=== PATIENT | female | born 1960 | race Caucasian/White ===

== ENCOUNTER → 2017-11-16 10:49 | Outpatient (CLI) | payer BC, SELFPAY ==
--- NOTE | 2017-11-16 11:02 | RAD_ITS ---
STUDY: X-RAY - ABDOMEN/PELVIS REASON FOR EXAM: Female, 57 years old. 2 day history of diarrhea and nausea. TECHNIQUE: AP supine and upright views of the abdomen and pelvis. COMPARISON: Comparison is made with prior study dated July 23, 2013. FINDINGS: Normal visualized lung bases. There is a moderate amount of colonic fecal material. There is no demonstrated free abdominal air. The visualized liver, spleen and kidneys are grossly normal in size and morphology. There are calcified phleboliths in the pelvis. Mild dextroscoliosis. RAD/Abd Inc Decub and/or Erect IMPRESSION: Moderate degree of fecal material seen in the colon. Electronically Signed: Rome Lim MD at 15:13 EST Tel [phone], Service support ,
== END ==
PROVIDERS: Family Provider Family Medicine Geriatric Medicine; PCP Family Medicine Geriatric Medicine; Visit Provider Family Medicine Geriatric Medicine
DX: R50.9 Fever, unspecified (principal); R19.7 Diarrhea, unspecified
CPT/HCPCS: 74019; 87633

== ENCOUNTER → 2017-12-14 07:24 | Outpatient (CLI) | payer BC, SELFPAY ==
[2017-12-20 11:52] LABS: HPV Reflexed? NOT INDICATED
== END ==
PROVIDERS: Family Provider Family Medicine Geriatric Medicine; PCP Family Medicine Geriatric Medicine; Visit Provider Obstetrics & Gynecology
DX: Z12.4 Encounter for screening for malignant neoplasm of cervix (principal)
CPT/HCPCS: 88175; G0145

== ENCOUNTER → 2023-11-30 | Outpatient (CLI) | payer BC, SELFPAY ==
--- NOTE | 2023-11-30 09:54 | VDLE_ITS ---
Reason For Study: Right leg pain RIGHT LEFT GSV is normal. CFV is compressible, spontaneous, phasic, CFV is compressible, spontaneous, phasic, competent, and demonstrates normal competent and demonstrates normal augmentation. augmentation. FV is compressible, spontaneous, phasic, competent and demonstrates normal augmentation. POP V is compressible, spontaneous, phasic, competent and demonstrates normal augmentation. T/P Trunk is compressible. PTV is compressible. RT PerV is compressible. Procedure This is a venous duplex using B-mode, color flow and spectral Doppler. Exam performed in department. A preliminary report was called and/or faxed to Jamel ACOSTA. VL/Venous Duplex US, Unilateral Interpretation Summary Deep veins of the right lower extremity are patent and compressible segmentally . There is no evidence of right lower extremity deep vein thrombosis. The right great sapheno us vein appears patent and compressible segmentally. Ordering Physician: Jamel Ward Referring Physician: Kelechi Beasley M.D. Performed By: Eve Man RVT
--- OUTSIDE RECORDS SUMMARY | 2023-11-30 10:11 | XMS RPT_ITS | CCD ---
Author Name Unknown Address [address] [place] [address] Organization [facility] Care Team Providers Care Contact Worker Name Role Phone Phylicia CRAMER, Emigdio Goetz Primary Care Provider Medications Completed/Discontinued Medications Medication Drug Class(es) Dates Sig (Normalized) Sig (Original) preservative-free timolol 2.5 mg/ml ophthalmic solution (3 sources) beta-Adrenergic Tamera Start: 01-24-2021 take 1 drop(s) into the eye(s) once daily Timolol Maleate 0.25 % dpet Use 1 Drop in both eyes once daily. 0 01/24/2021 Active Problems Active Problems Problem Classification Problem Date Documented Da te Episodic/Chronic Gastroduodenal ulcer (except hemorrhage) (3 sources) Ulcer of duodenum; Translations: [Duodenal ulcer, unspecified as acute or chronic, without hemorrhage or perforation] Onset: 08-28-2013 08-28-2013 Chronic Other screening for suspected conditions (not mental disorders or infectious disease) (2 sources) Patient encounter status; Translations: [Encounter for screening mammogram for malignant neoplasm of breast] Episodic Other upper respiratory infections (1 source) Sore throat symptom; Translations: [Acute pharyngitis, unspecified] 08-08-2023 Episodic Substance-related disorders (3 sources) Tobacco user; Translations: [Nicotine dependence, unspecified, uncomplicated] 01-24-2021 Chronic Past or Other Problems Problem Classification Problem Date Documented Da te Episodic/Chronic Abdominal pain (3 sources) Abdominal pain; Translations: [Unspecified abdominal pain] Onset: 07-30-2013 07-30-2013 Episodic Biliary tract disease (3 sources) Polyp of gallbladder; Translations: [Cholesterolosis of gallbladder] Onset: 08-28-2013 08-28-2013 Episodic Gastritis and duodenitis (3 sources) Duodenitis; Translations: [Duodenitis without bleeding] Onset: 07-30-2013 07-30-2013 Episodic Other connective tissue disease (3 sources) Swelling of hand; Translations: [Other specified soft tissue disorders] Onset: 08-18-2012 08-18-2012 Episodic Other gastrointestinal disorders (3 sources) Constipation; Translations: [Constipation, unspecified] Onset: 07-30-2013 07-30-2013 Episodic Results Test Name Value Interpretation Reference Range Facil ity Vital Signs Date Time Vital Sign Value Performing Clinician Faci lity 08-08-2023 10:39-0400 Body temperature 98.6 [degF] Johanna Foster APRN.[employer] Work Phone: [facility] 08-08-2023 10:39-0400 Body weight 56.7 kg Johanna Foster APRN.[employer] Work Phone: [facility] 08-08-2023 10:39-0400 Diastolic blood pressure 90 mm[Hg] Johanna Foster APRN.[employer] Work Phone: [facility] 08-08-2023 10:39-0400 Heart rate 102 /min Johanna Foster APRN.[employer] Work Phone: [facility] 08-08-2023 10:39-0400 Respiratory rate 21 /min Johanna Foster APRN.[employer] Work Phone: [facility] 08-08-2023 10:39-0400 SaO2% (BldA) [Mass fraction] 98 % Johanna Foster APRN.[employer] Work Phone: [facility] 08-08-2023 10:39-0400 Systolic blood pressure 128 mm[Hg] Johanna Foster APRN.[employer] Work Phone: [facility] Encounters Encounter Date Encounter Type Care Provider Facility Start: 08-08-2023 End: 08-08-2023 ambulatory EMIGDIO BUCK Facility:[facility] Start: 08-08-2023 End: 08-08-2023 Patient encounter procedure Johanna Foster APRN.[employer]URSE [employer] Work Phone: [facility] Procedures Date Procedure Procedure Detail Performing Clinician Start: 08-08-2023 STREP A MOLECULAR (POC) Johanna Foster APRN.[employer] Work Phone: Start: 02-17-2021 Mammography Jonel Buck MD Work Phone: Start: 01-24-2021 Adult depression screening assessment Emigdio Buck MD Work Phone: Start: 01-24-2021 Lipid 1996 panel - S afsaneh or Plasma Johanna Foster APRN.[employer] Work Phone: Start: 08-07-2013 Colonoscopy Jonel Buck MD Work Phone: Plan of Treatment Date Care Activity Detail Author Start: 01-24-2026 Lipid 1996 panel - Serum or Plasma Lipid Screening [facility] Start: 01-24-2026 LIPID SCREEN LIPID SCREEN [facility] Start: 01-25-2024 DIABETES SCREEN DIABETES SCREEN [facility] Start: 01-25-2024 Diabetes Screening Diabetes Screening [facility] Start: 08-07-2023 Colonoscopy COLONOSCOPY [facility] Start: 08-07-2023 COLORECTAL CANCER SCREENING COLORECTAL CANCER SCREENING [facility] Start: 06-17-2023 Influenza vaccination [facility] Start: 10-17-2022 DEPRESSION ASSESSMENT DEPRESSION ASSESSMENT [facility] Start: 06-17-2022 Influenza vaccination INFLUENZA (Season Ended) [facility] Start: 02-17-2022 Mammography [facility] Start: 01-24-2022 Adult depression screening assessment DEPRESSION SCREENING [facility] Start: 2021 RSV Vaccine (1 - 1-dose 60+ series) RSV Vaccine (1 - 1-dose 60+ series) [facility] Start: 2011 Influenza vaccination Lung Cancer Screening [facility] Start: 2011 SHINGRIX VACCINE (1 of 2) SHINGRIX VACCINE (1 of 2) [facility] Start: 2006 COLOGUARD (FIT-DNA) COLOGUARD (FIT-DNA) [facility] Start: [address] COLONOGRAPHY [facility] Start: 2006 FECAL OCCULT BLOOD FECAL OCCULT BLOOD [facility] Start: 2006 SIGMOIDOSCOPY SIGMOIDOSCOPY [facility] Start: 1991 HPV TESTING HPV TESTING [facility] Start: 1982 PAP TESTING PAP TESTING [facility] Start: 1980 Urine microalbumin profile [facility] Start: 1967 PNEUMOCOCCAL (1 - PCV) PNEUMOCOCCAL (1 - PCV) [facility] Start: 1967 Pneumococcal vaccination Pneumococcal Vaccine (1 - PCV) [facility] Start: 1966 COVID-19 VACCINE (#1) COVID-19 VACCINE (#1) [facility] Start: 04-28-1962 COVID-19 VACCINE (#1) COVID-19 VACCINE (#1) [facility] End: 04-23-2023 ARLETH SCREENING W LUZ ARLETH SCREENING W LUZ Radiology Routine Encounter for screening mammogram for breast cancer 1 Occurrences starting 03/24/2022 until 04/23/2023 [facility] Work Phone: Immunizations Immunization Date Immunization Notes Care Provider Maximiliano ny 08-02-2017 influenza virus vacc ine, unspecified formulation Johanna Foster APRN.[facility] Work Phone: [facility] Payers Date Payer Category Payer Unknown [employer] PPO OOS [id number] 2013-Present [phone] [address] [place] [address] PPO [id number] 2013 Unknown [employer] PPO OOS [id number] 2013-Present [phone] [address] [place] [address] PPO [id number] 2013 Unknown [id number] Social History Date Type Detail Facility Start: 08-17-2012 End: 08-08-2023 Tobacco smoking status NHIS Smokes tobacco daily [facility] History of tobacco use Cigarette Smoker [facility] Start: 08-17-2012 End: 09-21-2020 Cigarettes smoked current (pack per day) - Reported 0.5 [facility] Start: 08-17-2012 End: 08-08-2023 Tobacco use and exposure Smokeless tobacco non-user [facility] Start: 02-25-2021 End: 08-08-2023 Alcohol intake Current drinker of alcohol (finding) [facility] Start: 01-24-2021 History SDOH Alcohol Comment 5-6 beers on Tuesday [facility] Start: 09-20-2013 End: 08-08-2023 Tobacco Comment quit for 2 months (april and May) resumed and currently smoking 8-10 cigarrettes a day [facility] Start: 1960 Sex Assigned At Not on file [facility] Start: 09-21-2020 End: 08-08-2023 Tobacco use panel [facility] Adult Depression Screening Assessment 0 [facility] Progress note 08-08-2023 Note Date & Type Note Facility 08-08-2023 Note HNO ID: [id number] Author: Johanna Foster APRN.[employer] Service: ? Author Type: Nurse Practitioner Type: Progress Notes Filed: 08/08/2023 11:10 AM Note Text: CC: Patient presents with: Cough: Coughing up mucus, sore throat, fatigue, chills x 1 day HPI: Brianna Victoria is a 62 year old female who presents to the office with complaint of head congestion, cough, nonproductive, sore throat, and sinus symptoms for the past day. Symptoms are staying the same. Associated symptoms includes fatigue and chills. Denies nausea, vomiting , and diarrhea. Treatments tried include nothing so far. with no relief of symptoms. Sick contacts: unknown. History of asthma, frequent episodes of bronchitis, chronic bronchitis, bronchiectasis or COPD: No Smoker: No Seasonal/environmental allergies: No The ROS is otherwise negative. The patient's pmh, medications, allergies, and past visits are reviewed. PHYSICAL EXAM: BP 128/90 Pulse 102 Temp 37 ?C (98.6 ?F) Resp 21 Wt 56.7 kg (125 lb) SpO2 98% BMI 21.34 kg/m? General appearance: alert, cooperative, pleasant, in no acute distress Head: Normocephalic Eyes: EOM's intact, conjunctiva pink and moist, no icterus, sclera white, non-injected Ears: Right ear: External ear/canal- Normal, TM - clear with good landmarks. Left ear: External ear/canal- Normal, TM - clear with good landmarks Oropharynx:moderate erythema, without exudates present Heart: Negative. RRR without obvious murmur, gallop, or rubs. No ectopy. Lungs: clear to auscultation, without rales or wheeze, good air exchange PAST MEDICAL HISTORY Diagnosis Date Alcohol consumption binge drinking Benign esophageal stricture History of cocaine abuse (HCC) crack. Last use was 2008 History of marijuana use last use 2008 Other specified glaucoma Eleni Kurtz-[place] Tobacco use disorder PAST SURGICAL HISTORY Procedure Laterality Date DELIVERY ONLY 10/17/1988 , low transverse COLONOSCOPY FLX DX W/COLLJ SPEC WHEN PFRMD 08/07/2013 with EGD EGD 09/2013 LAPS SURG CHOLECYSTECTOMY W/CHOLANGIOGRAPHY 09/25/2013 PAST SURGICAL HISTORY OF 10/17/2003 tendon and laceration repair of right hand ALLERGIES Patient has no known allergies. MEDICATIONS Timolol Maleate 0.25 % dpet Use 1 Drop in both eyes once daily. FAMILY HISTORY Problem Relation Age of Onset Cancer Mother stomach Hypertension Mother Cancer Father stomach Heart Father 60 Alcohol abuse Father Hypertension Sister Cancer Brother stomach No Known Problems Son Social History Tobacco Use Smoking status: Every Day Packs/day: 0.50 Years: 42.00 Additional pack years: 0.00 Total pack years: 21.00 Types: Cigarettes Smokeless tobacco: Never Tobacco comments: quit for 2 months (april and May) resumed and currently smoking 8-10 cigarrettes a day Substance Use Topics Alcohol use: Yes Alcohol/week: 20.0 standard drinks of alcohol Types: 20 Cans of Beer (12oz) per week Comment: 5-6 beers on Tuesday Drug use: No Comment: perviously used Cocaine for 3 years, quit 2005 ASSESSMENT/PLAN: 1. Sore throat - ICD9: 462, ICD10: J02.9 - STREP A MOLECULAR (POC) - neg Does not want viral testing at this time. Did tell patient to do [id number] medication for symptom management Potential red flag symptoms discussed with the patient. Reviewed appropriate action plan to take if red flag symptoms occur. Patient agreeable to treatment plan. Johanna Foster APRN.[facility] History of Present illness Narrative 08-08-2023 Johanna Foster APRN.[employer]URSE [employer] - 08/08/2023 10:47 AM EDT Note Date & Type Note Facility 08-08-2023 History of Presen t illness Narrative CC: Patient presents with: Cough: Coughing up mucus, sore throat, fatigue, chills x 1 day HPI: Brianna Victoria is a 62 year old female who presents to the office with complaint of head congestion, cough, nonproductive, sore throat, and sinus symptoms for the past day. Symptoms are staying the same. Associated symptoms includes fatigue and chills. Denies nausea, vomiting , and diarrhea. Treatments tried include nothing so far. with no relief of symptoms. Sick contacts: unknown. History of asthma, frequent episodes of bronchitis, chronic bronchitis, bronchiectasis or COPD: No Smoker: No Seasonal/environmental allergies: No The ROS is otherwise negative. The patient's pmh, medications, allergies, and past visits are reviewed. PHYSICAL EXAM: BP 128/90 Pulse 102 Temp 37 C (98.6 F) Resp 21 Wt 56.7 kg (125 lb) SpO2 98% BMI 21.34 kg/m General appearance: alert, cooperative, pleasant, in no acute distress Head: Normocephalic Eyes: EOM's intact, conjunctiva pink and moist, no icterus, sclera white, non-injected Ears: Right ear: External ear/canal- Normal, TM - clear with good landmarks. Left ear: External ear/canal- Normal, TM - clear with good landmarks Oropharynx:moderate erythema, without exudates present Heart: Negative. RRR without obvious murmur, gallop, or rubs. No ectopy. Lungs: clear to auscultation, without rales or wheeze, good air exchange PAST MEDICAL HISTORY Diagnosis Date Alcohol consumption binge drinking Benign esophageal stricture History of cocaine abuse (HCC) crack. Last use was 2008 History of marijuana use last use 2008 Other specified glaucoma Eleni Kurtz-[place] Tobacco use disorder PAST SURGICAL HISTORY Procedure Laterality Date DELIVERY ONLY 10/17/1988 , low transverse COLONOSCOPY FLX DX W/COLLJ SPEC WHEN PFRMD 08/07/2013 with EGD EGD 09/2013 LAPS SURG CHOLECYSTECTOMY W/CHOLANGIOGRAPHY 09/25/2013 PAST SURGICAL HISTORY OF 10/17/2003 tendon and laceration repair of right hand ALLERGIES Patient has no known allergies. MEDICATIONS Timolol Maleate 0.25 % dpet Use 1 Drop in both eyes once daily. FAMILY HISTORY Problem Relation Age of Onset Cancer Mother stomach Hypertension Mother Cancer Father stomach Heart Father 60 Alcohol abuse Father Hypertension Sister Cancer Brother stomach No Known Problems Son Social History Tobacco Use Smoking status: Every Day Packs/day: 0.50 Years: 42.00 Additional pack years: 0.00 Total pack years: 21.00 Types: Cigarettes Smokeless tobacco: Never Tobacco comments: quit for 2 months (april and May) resumed and currently smoking 8-10 cigarrettes a day Substance Use Topics Alcohol use: Yes Alcohol/week: 20.0 standard drinks of alcohol Types: 20 Cans of Beer (12oz) per week Comment: 5-6 beers on Tuesday Drug use: No Comment: perviously used Cocaine for 3 years, quit 2005 ASSESSMENT/PLAN: 1. Sore throat - ICD9: 462, ICD10: J02.9 - STREP A MOLECULAR (POC) - neg Does not want viral testing at this time. Did tell patient to do [id number] medication for symptom management Potential red flag symptoms discussed with the patient. Reviewed appropriate action plan to take if red flag symptoms occur. Patient agreeable to treatment plan. Johanna Foster APRN.[facility]INA documented in this encounter [facility] Clinical Note 03-16-2023 Note Date & Type Note Facility 03-16-2023 Note Patient Outreach (IN [facility]) BRIANNA VICTORIA ([id number]) 1960 F NFR Date Time Provider Department 03/16/23 EMIGDIO BUCK During your visit today, we recorded the following information about you: Allergies As of Date: 03/16/2023 (No Known Allergies) Date Reviewed: 02/25/2021 Reviewed by: Alisson Villegas LPN - Fully Assessed Visit Diagnosis:Encounter for screening mammogram for breast cancer [Z12.31] Order(s):ARLETH SCREENING W LUZ [[id number]] Order #: [id number] FUTURE Prescriptions as of 03/21/2023 - Timolol Maleate 0.25 % dpet Use 1 Drop in both eyes once daily. Problem List As Of Date 03/16/2023 Noted Resolved Swelling of hand [M79.89] 08/18/2012 Abdominal pain, unspecified site [R10.9] 07/30/2013 Duodenitis [K29.80] 07/30/2013 Constipation [K59.00] 07/30/2013 Gallbladder polyp [K82.4] 08/28/2013 Duodenal ulcer [K26.9] 08/28/2013 Tobacco use disorder [F17.200] Encounter Status:Closed by RASHID PENG on 03/21/23 [facility] Evaluation note Note Date & Type Note Facility documented in this encounter [facility] Evaluation note Note Date & Type Note Facility documented in this encounter [facility] Reason for referral (narrative) Diagnostic Procedure Only (Routine) - Pending Review Note Date & Type Note Facility Referral ID Status Reason Start Date Expiration Date Visits Requested Visits Authorized [id number] Pending Review Auto-Generat ed Referral 03/24/2022 04/23/2023 1 1 T [facility] Reason for referral (narrative) Diagnostic Procedure Only (Routine) - Pending Review Note Date & Type Note Facility Referral ID Status Reason Start Date Expiration Date Visits Requested Visits Authorized [id number] Pending Review Auto-Generat ed Referral 03/16/2023 04/14/2024 1 1 T [facility] Summary Purpose Family History No Family History Records Found Advance Directives No Advanced Directives Records Found Additional Source Comments Source Comments (unrecognize d section and content) In the event this informatio n is protected by the Federal Confidentiality of Alcohol and Drug Abuse Patient Records regulations: The Federal rules restrict any use of the information to criminally investigate or prosecute any alcohol or drug abuse patient.[facility] the event this information is protected by the [facility] Confidentiality of Alcohol and Drug Abuse Patient Records regulations: The Federal rules restrict any use of the information to criminally investigate or prosecute any alcohol or drug abuse patient.[facility] the event this information is protected by the Federal Confidentiality of Alcohol and Drug Abuse Patient Records regulations: The Federal rules restrict any use of the information to criminally investigate or prosecute any alcohol or drug abuse patient.[facility] Care Teams (unrecognized sec tion and content) Contact Worker Relationship Specialty Start Date End Date Emigdio Buck MD [address] [place], [place] [id number] PCP - General Family Medicine 01/24/21 Contact Worker Relationship Specialty Start Date End Date Emigdio Buck MD [address] [place], [place] [id number] PCP - General Family Medicine 01/24/21 Reason for Visit (unrecogniz ed section and content) INFORMATION SOURCE (unrecogn ized section and content) FOR RECORDS PERTAINING TO PATIENTS WHO ARE OR HAVE BEEN ENROLLED IN A CHEMICAL DEPENDENCY/SUBSTANCEABUSE PROGRAM, SOME INFORMATION MAY BE OMITTED. This clinical summary was aggregated from multiple sources. Caution should be exercised in using it in the provision of clinical care. This summary normalizes information from multiple sources, and as a consequence, information in this document may materially change the coding, format and clinical context of patient data. In addition, data may be omitted in some cases. CLINICAL DECISIONS SHOULD BE BASED ON THE PRIMARY CLINICAL RECORDS. [email or web address]. provides no warranty or guarantee of the accuracy or completeness of information in this document.
== END | disposition home or self-care (01) ==
PROVIDERS: PCP Family Medicine; Referring Provider Physician Assistant; Visit Provider Physician Assistant
DX: M79.661 Pain in right lower leg (principal)
CPT/HCPCS: 93971

== ENCOUNTER → 2023-12-12 | Outpatient (CLI) | payer BC, SELFPAY ==
[2023-12-12 15:38] LABS: Absolute Lymphocyte Count 1.78 X10^3/uL (0.83-4.51); Basophil# 0.02 X10^3/uL; Basophil% 0.2 % (0-1); Eosinophil# 0.03 X10^3/uL; Eosinophils% 0.3 % (0-5); Hematocrit 41.5 % (37-47); Hemoglobin 13.6 g/dL (12.0-15.0); Lymphocyte # 1.78 X10^3/ul (0.83-4.51); Lymphocyte % 18.9 % (19-41); Mean Corp Hgb Conc 32.8 g/dL (32-36); Mean Corpuscular Hgb 30.9 pg (27.0-32.0); Mean Corpuscular Volume 94.3 fL (81-99); Mean Platelet Vol. 10.9 fl (6.2-12.0); Monocyte# 0.53 X10^3/uL; Monocyte% 5.6 % (0-10); NRBC Flagged by Analyzer 0 % (0-5); Neutrophil # 7.01 X10^3/uL (2.7-7.7); Neutrophil % 74.5 % (47-70); Platelet Count 255 K/mm3 (150-450); RBC Distribution Width CV 12.3 % (11.6-14.6); RBC Distribution Width SD 43.2 fl (35.1-43.9); White Blood Count 9.4 K/mm3 (4.4-11.0)
[2023-12-12 15:50] LABS: ALB/GLOB Ratio 1.3 RATIO (0.9-2.4); AST(SGOT) 10 U/L (15-37); Alanine Aminotransfer ALT/SGPT 28 U/L (13-56); Albumin, Serum 3.9 g/dL (3.2-5.0); Alkaline Phosphatase 106 U/L (45-117); Anion Gap 3 (5-15); BUN 24 mg/dL (7-18); Chloride 109 mmol/L (98-107); Cholesterol 265 mg/dL (200); Creatinine, Serum 0.77 mg/dL (0.55-1.02); EST Glomerular Filtration Rate 80 mL/min (>60); Est Glom Filt Rate - Afr Amer 97 mL/min (>60); Globulin 3.1 g/dL (2.2-4.2); Glucose 100 mg/dL (74-106); High Density Lipoprotein 80 mg/dL; Potassium 4.6 mmol/L (3.5-5.1); Sodium Level 140 mmol/L (136-145); Triglycerides 113 mg/dL; Very Low Density Lipoprotein 23 mg/dL (5-40)
== END | disposition home or self-care (01) ==
LOC: BIMLAB 13:06
PROVIDERS: PCP Family Medicine; Visit Provider Family Medicine
DX: Z02.89 Encounter for other administrative examinations (principal); M70.61 Trochanteric bursitis, right hip
CPT/HCPCS: 36415; 80053; 80061; 85025

== ENCOUNTER → 2023-12-15 | Outpatient (CLI) | payer BC, SELFPAY ==
--- NOTE | 2023-12-15 07:15 | BI_ITS ---
MAMMOGRAPHY - BILATERAL SCREENING REASON FOR EXAM: Female, 63 years old. Routine annual screening examination. PERTINENT HISTORY: Non-contributory. TECHNIQUE: Digital bilateral breast luz (3D mammographic acquisition) in the CC and MLO projections. 2-D mediolateral oblique (MLO) and craniocaudad (CC) views of both breasts were obtained. CAD: Full Field Digital Mammography with Computer Added Detection was performed. COMPARISON: Comparison is made with prior study August 10, 2016 and August 28, 2015. FINDINGS: Breast Composition: The breasts are heterogeneously dense, which may obscure small masses. There are no dominant masses or suspicious calcifications. No other significant abnormalities are identified. There has been no significant change since the prior study. BI/SCRN MAMM (CAD)W/LUZ BILAT IMPRESSION: Stable bilateral screening mammogram. Yearly follow-up mammogram recommended. (A) ASSESSMENT CATEGORY: BIRADS Category 1: Negative. A letter regarding these results will be sent to the patient by the facility within 30 days. Approximately 10% of breast cancers are not detected by mammography. A normal mammogram should not delay biopsy of a clinically suspicious abnormality. [id number] Electronically Signed: Rome Lim MD at 8:44 EST ,
--- OUTSIDE RECORDS SUMMARY | 2023-12-15 07:20 | XMS RPT_ITS | CCD ---
Author Name Unknown Address [address] [place] [address] Organization [facility] Care Team Providers Care Oracle Fusion Middleware Developer Name Role Phone Phylicia CRAMER, Emigdio Goetz [...] 10:39-0400 Body temperature 98.6 [degF] Johanna Foster APRN.DRAG DOWN Work Phone: [facility] 08-08-2023 10:39-0400 Body weight 56.7 kg Johanna Foster APRN.DRAG DOWN Work Phone: [facility] 08-08-2023 10:39-0400 Diastolic blood pressure 90 mm[Hg] Johanna Foster APRN.DRAG DOWN Work Phone: [facility] 08-08-2023 10:39-0400 Heart rate 102 /min Johanna Foster APRN.DRAG DOWN Work Phone: [facility] 08-08-2023 10:39-0400 Respiratory rate 21 /min Johanna Foster APRN.DRAG DOWN Work Phone: [facility] 08-08-2023 10:39-0400 SaO2% (BldA) [Mass fraction] 98 % Johanna Foster APRN.DRAG DOWN Work Phone: [facility] 08-08-2023 10:39-0400 Systolic blood pressure 128 mm[Hg] Johanna Foster APRN.DRAG DOWN Work Phone: [facility] Encounters Encounter Date Encounter Type Care Provider Facility Start: 08-08-2023 End: 08-08-2023 ambulatory EMIGDIO BUCK Facility:[facility] Start: 08-08-2023 End: 08-08-2023 Patient encounter procedure Johanna Foster APRN.DRAG DOWN Work Phone: [facility] Procedures Date Procedure Procedure Detail Performing Clinician Start: 08-08-2023 STREP A MOLECULAR (POC) Johanna Foster APRN.DRAG DOWN Work Phone: Start: 02-17-2021 Mammography Jonel Buck MD Work Phone: Start: 01-24-2021 Adult depression screening assessment Emigdio Buck MD Work Phone: Start: 01-24-2021 Lipid 1996 panel - S afsaneh or Plasma Johanna Foster APRN.DRAG DOWN Work Phone: Start: 08-07-2013 Colonoscopy Jonel Buck MD Work Phone: Plan of Treatment Date Care Activity Detail Author Start: 01-24-2026 Lipid 1996 panel - Serum or Plasma Lipid Screening [facility] Start: 01-24-2026 LIPID SCREEN LIPID SCREEN [facility] Start: 01-25-2024 DIABETES SCREEN DIABETES SCREEN [facility] Start: 01-25-2024 Diabetes Screening Diabetes Screening [facility] Start: 08-07-2023 Colonoscopy COLONOSCOPY [facility] Start: 08-07-2023 COLORECTAL CANCER SCREENING COLORECTAL CANCER SCREENING [facility] Start: 06-17-2023 Influenza vaccination [facility] Start: 10-17-2022 DEPRESSION ASSESSMENT DEPRESSION ASSESSMENT [facility] Start: 06-17-2022 Influenza vaccination INFLUENZA (Season Ended) [facility] Start: 02-17-2022 Mammography [facility] Start: 01-24-2022 Adult depression screening assessment DEPRESSION SCREENING [facility] Start: 2021 RSV Vaccine (1 - 1-dose 60+ series) RSV Vaccine (1 - 1-dose 60+ series) [facility] Start: 2011 Influenza vaccination Lung Cancer Screening [facility] Start: 2011 SHINGRIX VACCINE (1 of 2) SHINGRIX VACCINE (1 of 2) [facility] Start: 2006 COLOGUARD (FIT-DNA) COLOGUARD (FIT-DNA) [facility] Start: [address] COLONOGRAPHY [facility] Start: 2006 FECAL OCCULT BLOOD FECAL OCCULT BLOOD [facility] Start: 2006 SIGMOIDOSCOPY SIGMOIDOSCOPY [facility] Start: 1991 HPV TESTING HPV TESTING [facility] Start: 1982 PAP TESTING PAP TESTING [facility] Start: 1980 Urine microalbumin profile [facility] Start: 1967 PNEUMOCOCCAL (1 - PCV) PNEUMOCOCCAL (1 - PCV) [facility] Start: 1967 Pneumococcal vaccination Pneumococcal Vaccine (1 - PCV) [facility] Start: 1966 COVID-19 VACCINE (#1) COVID-19 VACCINE (#1) [facility] Start: 04-28-1962 COVID-19 VACCINE (#1) COVID-19 VACCINE (#1) [facility] End: 04-23-2023 ARLETH SCREENING W LUZ ARLETH SCREENING [facility] Radiology Routine Encounter for screening mammogram for breast cancer 1 Occurrences starting 03/24/2022 until 04/23/2023 [facility] Work Phone: Immunizations Immunization Date Immunization Notes Care Provider Maximiliano ny 08-02-2017 influenza virus vacc ine, unspecified formulation Johanna Foster APRN.[facility] Work Phone: [facility] Payers Date Payer Category Payer Unknown [employer] PPO OOS [id number] 2013-Present [phone] [address] [place] [address] PPO [id number] 2013 Unknown [employer] PPO OOS [id number] 2013-Present [phone] [address] [place] [address] PPO [id number] 2013 Unknown [id number] Social History Date Type Detail Facility Start: 08-17-2012 End: 08-08-2023 Tobacco smoking status NHIS Smokes tobacco daily [facility] History of tobacco use Cigarette Smoker [facility] Start: 08-17-2012 End: 09-21-2020 Cigarettes smoked current (pack per day) - Reported 0.5 [facility] Start: 08-17-2012 End: 08-08-2023 Tobacco use and exposure Smokeless tobacco non-user [facility] Start: 02-25-2021 End: 08-08-2023 Alcohol intake Current drinker of alcohol (finding) [facility] Start: 01-24-2021 History SDOH Alcohol Comment 5-6 beers on Tuesday [facility] Start: 09-20-2013 End: 08-08-2023 Tobacco Comment quit for 2 months (april and May) resumed and currently smoking 8-10 cigarrettes a day [facility] Start: 1960 Sex Assigned At Not on file [facility] Start: 09-21-2020 End: 08-08-2023 Tobacco use panel [facility] Adult Depression Screening Assessment 0 [facility] Progress note 08-08-2023 Note Date & Type Note Facility 08-08-2023 Note HNO ID: [id number] Author: Johanna Foster APRN.DRAG DOWN Service: ? Author Type: Nurse Practitioner Type: [...] this time. Did tell patient to do [id number] medication for symptom management Potential red flag symptoms discussed with the patient. Reviewed appropriate action plan to take if red flag symptoms occur. Patient agreeable to treatment plan. Johanna Foster APRN.[facility] History of Present illness Narrative 08-08-2023 Johanna Foster APRN.DRAG DOWN - 08/08/2023 10:47 AM EDT Note Date [...] this time. Did tell patient to do [id number] medication for symptom management Potential red flag symptoms discussed with the patient. Reviewed appropriate action plan to take if red flag symptoms occur. Patient agreeable to treatment plan. Johanna Foster APRN.[facility]INA documented in this encounter [facility] Clinical Note 03-16-2023 Note Date & Type Note Facility 03-16-2023 Note Patient Outreach (IN [facility]) BRIANNA VICTORIA ([id number]) 1960 F NFR Date Time Provider Department 03/16/23 EMIGDIO BUCK During your visit today, we recorded the following information about you: Allergies As of Date: 03/16/2023 (No Known Allergies) Date Reviewed: 02/25/2021 Reviewed by: Alisson Villegas LPN - Fully Assessed Visit Diagnosis:Encounter for screening mammogram for breast cancer [Z12.31] Order(s):ARLETH SCREENING W LUZ [[id number]] Order #: [id number] FUTURE Prescriptions as of 03/21/2023 - Timolol Maleate 0.25 % dpet Use 1 Drop in both eyes once daily. Problem List As Of Date 03/16/2023 Noted Resolved Swelling of hand [M79.89] 08/18/2012 Abdominal pain, unspecified site [R10.9] 07/30/2013 Duodenitis [K29.80] 07/30/2013 Constipation [K59.00] 07/30/2013 Gallbladder polyp [K82.4] 08/28/2013 Duodenal ulcer [K26.9] 08/28/2013 Tobacco use disorder [F17.200] Encounter Status:Closed by RASHID PENG on 03/21/23 [facility] Evaluation note Note Date & Type Note Facility documented in this encounter [facility] Evaluation note Note Date & Type Note Facility documented in this encounter [facility] Reason for referral (narrative) Diagnostic Procedure Only (Routine) - Pending Review Note Date & Type Note Facility Referral ID Status Reason Start Date Expiration Date Visits Requested Visits Authorized [id number] Pending Review Auto-Generat ed Referral 03/24/2022 04/23/2023 1 1 T [facility] Reason for referral (narrative) Diagnostic Procedure Only (Routine) - Pending Review Note Date & Type Note Facility Referral ID Status Reason Start Date Expiration Date Visits Requested Visits Authorized [id number] Pending Review Auto-Generat ed Referral 03/16/2023 04/14/2024 1 1 T [facility] Summary Purpose Family History No Family History [...] or prosecute any alcohol or drug abuse patient.[facility] the event this information is protected by the [facility] Confidentiality of Alcohol and Drug Abuse Patient Records regulations: The Federal rules restrict any use of the information to criminally investigate or prosecute any alcohol or drug abuse patient.[facility] Health[facility] the event this information is protected by the Federal Confidentiality of Alcohol and Drug Abuse Patient Records regulations: The Federal rules restrict any use of the information to criminally investigate or prosecute any alcohol or drug abuse patient.[facility] Care Teams (unrecognized sec tion and content) Oracle Fusion Middleware Developer Relationship Specialty Start Date End Date Emigdio Buck MD [address] [place], [place] [address] PCP - General Family Medicine 01/24/21 Oracle Fusion Middleware Developer Relationship Specialty Start Date End Date Emigdio Buck MD [address] [place], [place] [address] PCP - General Family Medicine 01/24/21 Reason [...] BE BASED ON THE PRIMARY CLINICAL RECORDS. [facility]. provides no warranty or guarantee of the accuracy or completeness of information in this document.
== END | disposition home or self-care (01) ==
LOC: OPBI 07:15
PROVIDERS: PCP Family Medicine; Referring Provider Family Medicine; Visit Provider Family Medicine
DX: Z12.31 Encounter for screening mammogram for malignant neoplasm of breast (principal)
CPT/HCPCS: 77063; 77067

== ENCOUNTER → 2024-02-11 | Outpatient (CLI) | payer BC, SELFPAY ==
--- NOTE | 2024-02-11 07:31 | MRI_ITS ---
EXAM: MR LUMBAR SPINE WITHOUT INTRAVENOUS CONTRAST CLINICAL INDICATION: pain and radiculopathy TECHNIQUE: Multiplanar and multisequence MR images of the lumbar spine without intravenous contrast. COMPARISON: No relevant prior studies available. FINDINGS: VERTEBRAE: See below. SPINAL CORD: Normal. Normal position and signal intensity of the conus medullaris. SOFT TISSUES: Normal. DISCS/SPINAL CANAL/NEURAL FORAMINA: L1-L2: Normal disc height and morphology. Normal spinal canal and lateral recesses. Normal neuroforamina. L2-L3: Normal disc height and morphology. Normal spinal canal and lateral recesses. Normal neuroforamina. L3-L4: Normal disc height and morphology. Normal spinal canal and lateral recesses. Normal neuroforamina. L4-L5: Mild disc space narrowing. Broad-based disc protrusion, ligamentous hypertrophy and facet arthropathy results in mild spinal and mild to moderate bilateral neural foraminal narrowing. L5-S1: Normal disc height and morphology. Mild right posterior lateral disc protrusion. Normal spinal canal and lateral recesses. Mild to moderate right neural foraminal narrowing related to facet arthropathy and mild lateral disc protrusion. MRI/Spine Lumbar (Routine) IMPRESSION: 1. Mild L4-5 disc degeneration and broad-based disc protrusion without significant spinal stenosis. 2. Mild to moderate L4-5 and right L5-S1 neural foraminal narrowing as described. Electronically Signed: Calin Abreu MD at 12:48 EDT ,
== END | disposition home or self-care (01) ==
PROVIDERS: PCP Family Medicine; Referring Provider Physician Assistant; Visit Provider Physician Assistant
DX: M54.10 Radiculopathy, site unspecified (principal)
CPT/HCPCS: 72148

== ENCOUNTER 2024-02-15 15:30 | Outpatient (RCR) | payer BC, SELFPAY ==
--- NOTE | 2023-12-22 14:56 | HP.PTEVAL ---
Patient's Visit Information Visit Information Visit Information: NESSA AMARAL is a 63 year old F referred to Physical Therapy by KARLA Chang with a diagnosis of R HIP GREATER TROCH BURSITIS. Date of Evaluation: 12/22/23 Physical Therapist: Krystal Roldan PT, Cert MDT Visit Plan Frequency: 2x /Week Duration: 4-6 Weeks Plan: CORE AND R LE STRENGTHENING. R HIP, HS AND CALF STRETCHING. INSTRUCTION IN PROPER BODY MECHANICS. HELP PATIENT TO BE ABLE TO BEND AND LIFT PROPERLY AT WORK WITHOUT FEAR OF FALLING. HEP. 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 Disability: NO Present symptoms: R OUTSIDE OF HIP AND BUTTOCK PAIN. PAIN GOES INTO THE FRONT OF THE HIP TOO. R KNEE PAIN. INTERMITTENT R CALF PAIN. PATIENT DENIES R LE NUMBNESS OR TINGLING. NO LLE PAIN. INTERMITTENT LBP. 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 R SDLY. Better: IBUPROFEN, LYING DOWN ON L SDLY. Disturbed sleep: YES Previous history/Previous treatment: HURTING FOR OVER A YEAR. DID NOT SEEK TREATMENT UNTIL NOW. Treatment this episode: PATIENT REPORTS HER R CALF PAIN WENT AWAY AFTER TAKING PREDNISONE AND HER LIMP WENT AWAY AFTER HAVING AN INJECTION 2 WKS AGO. PATIENT REPORTS THE LIMP IS STILL GONE BUT THE R CALF PAIN IS STARTING TO COME BACK. STILL HAVING ABOVE SX'S. THE HIP PAIN IS A LOT LESS THAN BEFORE THE SHOT. Coughing/sneezing/straining: NEGATIVE FOR INCREASED PAIN. Gait: TOO MUCH WALKING CAUSES SOME PAIN. Bowel or Bladder Dysfunction: NO Accidents: NO Unexplained weight loss: NO Imaging: LUMBAR BUT NO HIP X-RAYS: Normal lumbar lordosis. There is no substantial scoliosis. There is a dextroscoliosis of the lumbar column. Normal vertebral bodies with mild spurring at the endplates. Normal disc space heights. The soft tissue structures are unremarkable. RAD/Lumbar Spine 2 or 3 Views IMPRESSION: Degenerative changes and scoliosis of the lumbar spine. Electronically Signed: Trenton Holland DO at 20:38 EST PMH/Recent major surgery: UNREMARKABLE. Objective Objective: Sitting/Standing Posture: FAIR. MILD REDUCED LORDOSIS. Active Correction of posture: ABLE TO PARTIALLY CORRECT BUT DOES NOT MAINTAIN. Other Observations: INDEP GAIT INTO PT WITH NO GROSS DEVIATIONS NOTED. INDEP TRANSFER SIT TO STAND WITHOUT UE ASSIST BUT WITH GREAT DIFFICULTY. Sensory deficit: TOSHA LE LIGHT TOUCH SENSATION GROSSLY INTACT AND SYMMETRICAL ROM deficit: TOSHA HIP ROTATION, HIP FLEXOR, HS AND CALF TIGHTNESS R > L. Motor deficit: R HIP 4-/5, KNEE 4/5, ANKLE 5/5. L HIP 4/5, KNEE 5/5, ANKLE 5/5. Dural Signs: NEGATIVE TOSHA LE'S. Lumbar mvmt loss: flex - NIL ext - MEKHI R SG - MOD L SG - MOD PATIENT DENIES PAIN WITH LUMBAR ROM TESTING ALL PLANES. Core strength: POOR Palpation: NO ACUTE LOWER THORACIC, LUMBAR, SACRAL OR HIP TENDERNESS WITH PALPATION TODAY. TREATMENT: NEUROMUSCULAR REEDUCATION - RETRAINING OF MVMT AND POSTURE FOR SITTING, LYING AND STANDING ACTIVITIES. Balance/Special Test Scores Lower Extremity Functional Score: 48 Goals Goal 1:: DECREASE C/O R LE SX'S BY AT LEAST 25% TO EASE WORK AND ADL FUNCTION Goal Time Frame: 4-6 Weeks Goal 2:: PATIENT WILL HAVE IMPROVED TRUNK AND LE ROM TO EASE ADL'S. Goal Time Frame: 4-6 Weeks Goal 3:: PATIENT WILL HAVE IMPROVED FUNCTIONAL CORE AND LE STRENGTH TO IMPROVE ADL AND WORK FUNCTION Goal Time Frame: 4-6 Weeks Goal 4:: INDEP HEP Goal Time Frame: 4-6 Weeks Rehabilitation Potential Physical Therapy Diagnosis: THIS PATIENT PRESENTS TO PT WITH POOR CORE STRENGTH, TOSHA HIP WEAKNESS R>L AND TOSHA LE TIGHTNESS. Rehabilitation Potential: Good Anticipated Interventions Patient/Client Instruction: Educate patient on: Condition, Plan of Care and Risk Factors For the Purpose of:: To improve self management Therapeutic Exercise to Include: Strength training, Body mechanics, Postural training, Flexibilty training and Neuromotor development For the Purpose of:: To decrease pain, To increase ROM, To improve muscle performance and motor function, To increase tolerance to activity/condition/position and To improve ability of physical actions for home/community/work/leisure Cryotherapy (ice pack, ice massage): Yes Thermo therapy (hot pack): Yes Ultrasound (thermal/non thermal): Yes For the Purpose of:: To decrease pain, To decrease swelling/inflammation and To improve nutrient delivery to tissue Text: Thank you for the opportunity to evaluate your patient. For Medicare and Medicare HMO plans, please review the plan of care and approve it. It will need to be FAXED BACK to us at [phone] for Medicare purposes. For Medicare only, by signing this I certify the plan of care. Please let me know if there are questions or concerns regarding this plan of care. Physician Signature: Date:
--- NOTE | 2024-01-20 16:26 | HP.PTREVAL_ITS ---
Re-Evaluation Intro: KARLA Chang, It has been my pleasure to treat NESSA AMARAL over the last 9 visits for R HIP GREATER TROCH BURSITIS. Please see the progress note below for an update on the physical therapy plan of care! Subjective Subjective: I DON'T HAVE THE PAIN IN MY THIGH ANYMORE LIKE I DID BEFORE. IT IS EASIER TO DO EVERYTHING. I STILL GET PAIN IN THE BACK OF MY THIGH WHEN I LIFT AT WORK THOUGH. PATIENT REPORTS SHE IS GETTING STRONGER AND SHE IS DOING HER EX'S AT HOME EVERYDAY. SHE STATES SHE THINKS IF SHE COULD CONTINUE PT SHE MIGHT BE ABLE TO GET RID OF THE PAIN. SHE REPORTS SHE ISN'T GETTING SORE AFTER THE PT SESSIONS NOW AND SHE IS THINKING ABOUT GETTING A MEMBERSHIP SOMEWHERE. PATIENT REPORTS HER INTERMITTENT R POSTERIOR HIP/BUTTOCK PAIN RANGING 0-5/10 NOW. BENDING OVER TO LIFT AT WORK AND DOING STEPS TOO MUCH DOING LAUNDRY ARE T HE MAIN THINGS THAT PROVOKE HER PAIN. STILL UNCOMFORTABLE TO LAY ON R SIDE TOO. Objective Objective/Function: PATIENT WAS SEEN TODAY FOR RE-ASSESSMENT OF PROGRESS TOWARD THE SET PT GOALS AND THE NEED FOR FURTHER PHYSICAL THERAPY VS READINESS FOR DISCHARGE. PATIENT IS MAKING GOOD PROGRESS IN PT INTERMS OF DECREASING PAIN AND INCREASING STRENGTH. SHE IS A GOOD CANDIDATE TO CONTINUE PT. UPON EXAM TODAY: INDEP GAIT INTO PT WITH NO GROSS DEVIATIONS NOTED. INDEP TRANSFER SIT TO STAND WITHOUT UE ASSIST WITHOUT DIFFICULTY NOW. Sensory deficit: TOSHA LE LIGHT TOUCH SENSATION GROSSLY INTACT AND SYMMETRICAL ROM deficit: TOSHA HIP ROTATION, HIP FLEXOR, HS AND CALF TIGHTNESS R > L. Motor deficit: R HIP 4/5, KNEE EXT 5/5, KNEE FLEX 4+/5, ANKLE 5/5. L HIP 5/5, KNEE 5/5, ANKLE 5/5. Dural Signs: NEGATIVE TOSHA LE'S. Lumbar mvmt loss: flex - NIL ext - MEKHI R SG - MOD L SG - MIN PATIENT DENIES PAIN WITH LUMBAR ROM TESTING ALL PLANES. PALPATION: MILD R GREATER TROCH AND HS INSERTION REGION TENDERNESS. RESISTED R KNEE FLEXION IN PRONE ALSO PROVOKES MILD PAIN IN R HS INSERTION REGION. Plan Plan Plan: CONTINUE PT 2X'S A WK X 10 VISITS FOR: CORE AND R LE STRENGTHENING. R HIP, HS AND CALF STRETCHING. 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 PATIENT IS CONSIDERING GYM MEMBERSHIP TO USE MACHINES. Balance/Gait/Functional tests Balance/Special Test Scores Lower Extremity Functional Score: 51 Goals Goals Goal 1:: DECREASE C/O R LE SX'S BY AT LEAST 25% TO EASE WORK AND ADL FUNCTION Goal Time Frame: 4-6 Weeks Goal Progress: Goal Met Goal 2:: PATIENT WILL HAVE IMPROVED TRUNK AND LE ROM TO EASE ADL'S. Goal Time Frame: 4-6 Weeks Goal Progress: Progressing Goal 3:: PATIENT WILL HAVE IMPROVED FUNCTIONAL CORE AND LE STRENGTH TO IMPROVE ADL AND WORK FUNCTION Goal Time Frame: 4-6 Weeks Goal Progress: Progressing Goal 4:: INDEP HEP Goal Time Frame: 4-6 Weeks Goal Progress: Progressing Anticipated Interventions Anticipated Interventions Patient/Client Instruction: Educate patient on: Condition, Plan of Care and Risk Factors For the Purpose of:: To improve self management Therapeutic Exercise to Include: Strength training, Body mechanics, Postural training, Flexibilty training and Neuromotor development For the Purpose of:: To decrease pain, To increase ROM, To improve muscle performance and motor function, To increase tolerance to activity/condition/position and To improve ability of physical actions for home/community/work/leisure Cryotherapy (ice pack, ice massage): Yes Thermo therapy (hot pack): Yes Ultrasound (thermal/non thermal): Yes For the Purpose of:: To decrease pain, To decrease swelling/inflammation and To improve nutrient delivery to tissue Re-Evaluation Ending Re-evaluation ending: Please do not hesitate to contact me at [phone] by phone or if you have questions or concerns regarding this new plan of care! Sincerely, Krystal Roldan PT, Cert MDT
== END 2024-02-15 19:00 | disposition home or self-care (01) ==
LOC: PT 15:30
PROVIDERS: PCP Family Medicine; Referring Provider Physician Assistant; Visit Provider Physician Assistant
DX: M70.61 Trochanteric bursitis, right hip (principal)
CPT/HCPCS: 97110; 97112; 97162; 97164; 97530

== ENCOUNTER → 2024-07-09 | Outpatient (CLI) | payer BC, SELFPAY ==
--- NOTE | 2024-07-09 11:23 | RAD_ITS ---
EXAM: XR RIGHT HIP WITH PELVIS WHEN PERFORMED, 2 OR 3 VIEWS CLINICAL INDICATION: PAIN TECHNIQUE: Two or three views of the right hip with pelvis when performed. COMPARISON: Abdomen, 07/23/[address] abdomen and pelvis, 07/26/2013. FINDINGS: BONES/JOINTS: Severe bilateral hip joint arthrosis with superior acetabular sclerosis and hypertrophy and superior joint space narrowing. Degenerative changes in the lower lumbar spine and symmetrically at the bilateral SI joints. No widening of the pubic symphysis. No acute fracture or dislocation. SOFT TISSUES: No significant abnormality. No soft tissue swelling or gas. RAD/HIP, UNI W/ Pelvis 2-3 Views IMPRESSION: No acute fracture or dislocation. Severe bilateral hip joint arthrosis. Electronically Signed: Mayco Wheatley DO at 21:13 EDT ,
== END | disposition home or self-care (01) ==
LOC: RAD 11:16
PROVIDERS: PCP Family Medicine; Referring Provider Anesthesiology Pain Medicine; Visit Provider Anesthesiology Pain Medicine
DX: M25.551 Pain in right hip (principal)
CPT/HCPCS: 73502

== ENCOUNTER 2024-10-26 06:31 | Inpatient (IN) | payer SELFPAY ==
[2024-10-26] VITALS (39 sets, daily range): BP systolic 99–129; BP diastolic 46–95; PULSE 80–138; RESP 14–40; TEMP 36.1–37.9; O2SAT 88–100; BMI 23.2; BMI 23.8
--- NOTE | 2024-10-26 06:50 | EDS_ITS ---
HPI History of Present Illness Chief Complaint: Weakness Informant: patient and EMS Narrative Narrative: Patient is a 63-year-old female who reports that she is only on eyedrops and otherwise takes no daily medications. She states she has had 5-10 episodes of loose stool/diarrhea since Tuesday. She states that it does appear dark in color. She denies any history of bleeding disorder or blood thinner use. She reports she also had 1-2 episodes of vomiting associated with this but denies any known sick contacts. She states has been no recent antibiotic use or travel outside the country. She states that she is getting progressively weaker as her symptoms have persisted and she is short of breath with even simple actions such as sitting up or trying to walk. Secondary to her weakness she fell this morning and could not get up and with the progressive/persistent diarrhea and increasing weakness EMS was called and she was brought in for evaluation Of note patient does states she drinks 3-4 beers per day. She states that she had an EGD roughly 10 years ago for esophageal stricture but denies any history of esophageal varices. She also denies any history of intestinal disorder such as diverticulosis IBS ulcerative colitis or Crohn's disease. [facility] Medical History Alcohol abuse Leg pain Home Medications ?Medication ?Instructions ?Recorded ?Last Taken ?Type NK 02/16/24 Unknown History Allergy/AdvReac Type Severity Reaction Status Date / Time No Known Allergies Allergy Verified 02/16/24 08:03 Surgical History H/O dilation and curettage Hx of cholecystectomy Social History household members: none current occupational status: employed current occupation: formerly [employer] pets and animals: Yes (1) pets and animals: cat(s) Smoking Status: Current every day smoker tobacco type: cigarettes Tobacco: How many years used: 40 alcohol intake: current alcohol intake frequency: 3 or more drinks per day substance use type: does not use and former substance user caffeine: Yes (1) Type: carbonated beverages what type of physical activity do you participate in: none frequency: 1-2 times per week do you feel safe at home: Yes ROS ROS ED Constitutional Constitutional ED: Denies chills or fever(s) Eyes Eyes: Denies blurry vision or change in vision ENT ENT ED: Denies sore throat Cardiovascular Cardiovascular: Reports racing heartbeat; Denies chest pain or palpitations Respiratory/Chest Respiratory/Chest: Denies cough or dyspnea Gastrointestinal Gastrointestinal: Reports diarrhea, melena, nausea and vomiting; Denies abdominal pain Genitourinary Genitourinary ED: Denies dysuria Musculoskeletal Musculoskeletal: Denies myalgias Integumentary Denies rash Neurologic Neurologic: Reports weakness; Denies headache(s) Hematologic/Lymphatic Hematologic/Lymphatic: Denies easy bleeding or easy bruising EXAM Physical Exam Const Vital Signs: 10/26/24 06:31 10/26/24 06:31 10/26/24 07:00 Temperature 98.7 F 98.6 F Temperature Source Oral Oral Pulse Rate 138 H 133 H Respiratory Rate 19 H 20 H Respiratory Effort Normal Non-Labored Respiratory Pattern Normal Blood Pressure 118/60 107/46 L Blood Pressure Mean 79 66 Pulse Ox 97 100 Oxygen Delivery Method Room Air Room Air Positive well nourished and well developed General Appearance ED: well developed and pallor HEENT HEENT Narrative: Normocephalic atraumatic Eyes PERRL and EOMs intact bilaterally General Eye ED: Yes pale conjunctiva; Negative for scleral icterus Neck supple and no JVD Resp normal respiratory effort and clear to auscultation bilaterally Resp Narrative: Patient is slightly But breath sounds are clear throughout Cardio regular rhythm Rate: tachycardic and other Other Details: Tachycardic rate with regular rhythm Radial and carotid pulses are equal and symmetric GI non-tender, non-distended and no masses GI Narrative: Abdomen is soft and nondistended with hyperactive bowel sounds. No voluntary guarding or rigidity. No pulsatile mass or fluid wave. No localized pain with palpation Auscultation: hyperactive bowel sounds Palpation: soft Narrative: Rectal tone is normal stool is melanotic in color No thrombosed or actively bleeding hemorrhoid no anal fissure noted Extremity normal to inspection Extremity Narrative: No asymmetric edema no pitting edema negative Homans' sign bilaterally Neuro oriented x3, CN's II-XII intact bilaterally and no sensory deficits noted Sensorium / Orientation: alert Psych mental status grossly normal Skin no rashes or lesions noted Skin Narrative: Skin is pale in color with delayed capillary refill General Skin Exam: pallor; Negative for jaundice MDM MDM MDM Narrative Medical decision making narrative: EMS reported hypotension but patient arrived to the ER tachycardic and normotensive. She reported 3 days of multiple dark stools on exam and is melanotic in color and she also reports a longstanding history of alcohol use/abuse which could lead to esophageal varices and/or alcoholic gastritis. Her physical exam is consistent with acute blood loss anemia based on her tachycardia pallor and fatigue. 2 L of IV fluid was ordered initially along with Protonix bolus and continuous infusion and with concern for esophageal varices 2 g of Rocephin as well as octreotide bolus and infusion. As patient's physical exam and history is most consistent with acute loss anemia 2 units were ordered for transfusion as well. Patient will undergo CTA of her abdomen and pelvis to check for source of bleeding. The patient's hemoglobin came back at 3.3 which is roughly 10 point drop from her previous value. This correlates with her 3-day history of dark loose stool. At this time CTA still pending to check for potential source of the bleeding. Despite the large drop in hemoglobin patient has been mentating normally and her blood pressure has remained stable. She is being treated with fluid and blood resuscitation. The case will be discussed with gastroenterology to see if she is safe to stay at this facility. The patient's response to treatment as well as CTA are still pending and therefore the patient will be signed out to the day physician Dr. Vicente while awaiting consultation and CT results History & Record Review Discussion w/independent historian: EMS personnel and Patient Lab Data Labs: Laboratory Results - last 24 hr 10/26/24 06:23 WBC 20.0 H RBC 1.06 L Hgb 3.3 L* Hct 10.5 L MCV 99.1 H MCH 31.1 MCHC 31.4 L RDW Std Deviation 43.8 RDW Coeff of Otilia 12.8 Plt Count 186 MPV 11.9 Immature Gran % (Auto) 2.200 H Neut % (Auto) 66.6 Lymph % (Auto) 25.6 Bland % (Auto) 5.5 Eos % (Auto) 0.1 Baso % (Auto) 0.0 Absolute Neuts (auto) 13.3 H Absolute Lymphs (auto) 5.13 H Nucleated RBC % 0.4 Sodium 140 Potassium 3.9 Chloride 113 H Carbon Dioxide 14.0 L Anion Gap 13 BUN 26 H Creatinine 1.06 H Estim Creat Clear Calc 47.52 Est GFR (MDRD) Af Amer 67 Est GFR (MDRD) Non-Af 56 L BUN/Creatinine Ratio 24.5 H Glucose 226 H Calcium 8.0 L Total Bilirubin 0.20 Direct Bilirubin 0.05 AST 10 L ALT 8 L Alkaline Phosphatase 48 Total Protein 4.2 L Albumin 2.4 L Globulin 1.8 L Lipase 85 H Radiography Diagnostic Testin view chest x-ray as interpreted by the emergency medicine physician reveals no acute infiltrate pneumothorax or pleural effusion Critical Care Time Critical Care Time: Yes Critical care time (excluding procedures): Discussing w/Patient &/or Family/Sample Puller, Discussing w/Consultants, Arranging Admission or Transfer and - (Critical care time 43 minutes) Discharge Plan Triage Chief Complaint: Weakness ED Provider: Daryn Paredes Dx/Rx/DC Orders Clinical Impression: Acute GI bleeding, Acute blood loss anemia, Alcohol abuse Prescriptions: No Action NK Primary Care Provider: Shlomo Beasley Referrals: Shlomo Beasley, DO [Primary Care Provider] - Print Language: Lao
--- NOTE | 2024-10-26 06:50 | CT_ITS ---
STUDY: CTA ABDOMEN AND PELVIS WITH CONTRAST REASON FOR EXAM: Female, 63 years old. GI bleed RADIATION DOSAGE (If Supplied By Facility): CTDIvol = ( 14.89 ) mGy, DLP = ( 429.22 ) mGycm TECHNIQUE: Transaxial images were obtained from the dome of the diaphragm to the symphysis pubis without oral contrast. IV 100mL Isovue-370 was administered. Sagittal and coronal images were reconstructed. Individualized dose optimization techniques were used for this CT. COMPARISON: Comparison is made with prior study dated July 26, 2013. FINDINGS: The visualized lung bases are unremarkable. The visualized portions of the heart are within normal limits. Normal liver. The patient is status post cholecystectomy. Mildly dilated common bile duct which is normal for the postcholecystectomy state. Normal spleen. Normal pancreas. Normal bilateral adrenal glands. Normal right kidney. Normal left kidney. There is a small hiatal hernia. Normal small intestine. Normal colon. The appendix is visualized and appears normal. Normal abdominal aorta. Normal inferior vena cava. Normal retroperitoneum. Normal urinary bladder. There is a 6.3 cm x 6.7 cm x 6 cm hypodense mass in the right lower quadrant. Correlation with a pelvic sonogram is recommended to rule out gynecological abnormality. There is a small umbilical hernia containing fat. There are degenerative changes of the visualized lumbar spine. CT/CTA Abd/Pelvis W/WO Contrast IMPRESSION: 6.3 cm x 6.7 cm x 6 cm hypodense mass in the right lower quadrant as described. Pelvic sonogram correlation recommended for further evaluation. Status post cholecystectomy. Electronically Signed: Rome Lim MD at 8:26 EST ,
--- NOTE | 2024-10-26 06:50 | EKG12_ITS ---
Test Reason : DYSP Blood Pressure : */* mmHG Vent. Rate : 127 BPM Atrial Rate : 127 BPM P-R Int : 142 ms QRS Dur : 70 ms QT Int : 320 ms P-R-T Axes : 76 63 94 degrees QTcB Int : 465 ms Sinus tachycardia Marked ST abnormality, possible anterior subendocardial injury Abnormal ECG Confirmed by Bernardino Cordero ([id number]), editor map JERONIMO EAGLE ([id number]) on 10/29/2024 10:17:33 AM Referred By: Confirmed By: Bernardino Cordero
[2024-10-26] MEDS: 0.9% Normal Saline (1000mL) 1,000 ML 999 ML IV ×2 (07:00→07:50)
[2024-10-26] MEDS: Ceftriaxone 2 GM in 0.9% Normal Saline (50mL MB+) 50 ML IV (07:23)
[2024-10-26 07:35] LABS: Absolute Lymphocyte Count 5.13 X10^3/uL (0.83-4.51); Absolute Neutrophil Count 13.3 X10^3/uL (2.0-7.7); Basophil# 0.01 X10^3/uL; Eosinophil# 0.02 X10^3/uL; Eosinophils% 0.1 % (0-5); Hematocrit 10.5 % (37-47); Lymphocyte # 5.13 X10^3/ul (0.83-4.51); Lymphocyte % 25.6 % (19-41); Mean Corp Hgb Conc 31.4 g/dL (32-36); Mean Corpuscular Hgb 31.1 pg (27.0-32.0); Mean Corpuscular Volume 99.1 fL (81-99); Mean Platelet Vol. 11.9 fl (6.2-12.0); Monocyte# 1.11 X10^3/uL; Monocyte% 5.5 % (0-10); NRBC Flagged by Analyzer 0.4 % (0-5); Neutrophil # 13.32 X10^3/uL (2.7-7.7); Neutrophil % 66.6 % (47-70); POSITIVE COUNT YES; POSITIVE DIFFERENTIAL YES; Platelet Count 186 K/mm3 (150-450); RBC Distribution Width CV 12.8 % (11.6-14.6); RBC Distribution Width SD 43.8 fl (35.1-43.9); Red Blood Count 1.06 M/mm3 (4.2-5.4)
--- NOTE | 2024-10-26 07:35 | RAD_ITS ---
STUDY: X-RAY CHEST REASON FOR EXAM: Female, 63 years old. Dyspnea TECHNIQUE: Single AP portable view of the chest. COMPARISON: None. FINDINGS: EKG electrodes are seen. Mild degree of vascular congestion and possible early CHF. There is no demonstrated pleural abnormality. Normal size heart. Normal mediastinum and desiree. Normal visualized pulmonary arteries. Normal visualized aortic arch and descending thoracic aorta. Normal visualized thoracic spine. Normal visualized ribs, clavicles, and shoulders. There is no demonstrated abnormality of the visualized soft tissue structures of the upper abdomen. RAD/Chest 1 View (Portable) IMPRESSION: Mild degree of vascular congestion and possible early CHF. Electronically Signed: Rome Lim MD at 8:30 EST ,
[2024-10-26 07:40] LABS: AST(SGOT) 10 U/L (15-37); Alanine Aminotransfer ALT/SGPT 8 U/L (13-56); Albumin, Serum 2.4 g/dL (3.2-5.0); Alkaline Phosphatase 48 U/L (45-117); Anion Gap 13 (5-15); BUN 26 mg/dL (7-18); BUN/Creat Ratio 24.5 RATIO (10-20); Bilirubin, Direct 0.05 mg/dL (0.00-0.30); Chloride 113 mmol/L (98-107); Creatinine, Serum 1.06 mg/dL (0.55-1.02); EST Glomerular Filtration Rate 56 mL/min (>60); Est Glom Filt Rate - Afr Amer 67 mL/min (>60); Estimated Creatinine Clearance 47.52 ml/min; Globulin 1.8 g/dL (2.2-4.2); Glucose 226 mg/dL (74-106); Lipase 85 U/L (13-75); Potassium 3.9 mmol/L (3.5-5.1); Protein, Total 4.2 g/dL (6.4-8.2); Sodium Level 140 mmol/L (136-145)
[2024-10-26 07:43] LABS: Differential Indicated SCAN CRITERIA MET; Hemoglobin 3.3 g/dL (12.0-15.0)
[2024-10-26] MEDS: Pantoprazole Sodium 80 MG in 0.9% Normal Saline (100mL Bag) 80 ML 10 MG CONT INF ×2 (07:45→17:49)
[2024-10-26] MEDS: Octreotide 0.05 MG in Dextrose 5%-Water (50mL Bag) 50 ML 202 MG IV (07:50)
[2024-10-26] MEDS: Pantoprazole Sodium 80 MG in 0.9% Normal Saline (50mL Bag) 15 ML 420 MG IV BOLUS (07:50)
[2024-10-26 07:54] LABS: Alcohol, Blood (Medical)-Serum < 3.0 mg/dL
[2024-10-26] MEDS: Octreotide 0.5 MG in Dextrose 5%-Water (250mL Bag) 249 ML 25 MG CONT INF ×2 (08:05→17:49)
[2024-10-26 08:23] LABS: International Normalized Ratio 1.2
[2024-10-26 08:24] LABS: Partial Thromboplast Time 25.4 Seconds (24.1-36.2)
--- NOTE | 2024-10-26 08:32 | ED.RN ---
started blood at 120cc for 5 minutes then increased with pressure bag due to sx and need for blood as trauma blood
[2024-10-26 08:36] LABS: Lactic Acid 7.8 mmol/L (0.4-1.9)
--- NOTE | 2024-10-26 09:19 | PCM.HP.STD ---
HPI - General General Date of Admission: 10/26/24 Date of Service: 10/26/24 Chief Complaint: Generalized weakness HPI Narrative NESSA AMARAL, is a 63 F who presents to with past medical history signal for chronic pain syndrome, chronic alcohol dependence who presented with generalized weakness. Patient admitted to daily use of alcohol. She also did states she has chronic pain for which she undergoes steroid injection however in view of her recent exacerbation patient was taking [id number] NSAIDs. She did develop black tarry stools days prior to her admission. In view of progressive generalized weakness patient presented to the emergency department. Patient was reported to be hypotensive and route to the hospital by the EMS squad however blood pressure had stabilized at the time of her admission. Hemoglobin was found to be 3.3 patient was typed and crossmatched started on Protonix drip octreotide and consultation placed to GI. Admitted to the intensive care unit for further management. [facility] Medical History Alcohol abuse Leg pain Home Medications ?Medication ?Instructions ?Recorded ?Last Taken ?Type NK 02/16/24 Unknown History Allergy/AdvReac Type Severity Reaction Status Date / Time No Known Allergies Allergy Verified 02/16/24 08:03 Surgical History H/O dilation and curettage Hx of cholecystectomy Social History household members: none current occupational status: employed current occupation: [employer] pets and animals: Yes (1) pets and animals: cat(s) Smoking Status: Current every day smoker tobacco type: cigarettes Tobacco: How many years used: 40 alcohol intake: current alcohol intake frequency: 3 or more drinks per day substance use type: does not use and former substance user caffeine: Yes (1) Type: carbonated beverages what type of physical activity do you participate in: none frequency: 1-2 times per week do you feel safe at home: Yes ROS ROS Narrative GENERAL: denies fever, chills, night sweats, HEENT: denies headache, sinus congestion, RESPIRATORY: dyspnea on exertion CARDIAC: denies chest pain, palpitations, orthopnea, PND GASTROINTESTINAL: , melena, GENITOURINARY: denies dysuria, urgency, frequency, heamaturia EXTREMITY: denies swelling MUSCULOSKELETAL: Chronic back pain NEUROLOGIC: denies focal numbness, weakness, tingling HEMATOLOGIC: denies easy bruising and/or hemorrhage INTEGUMENT: denies rashes PSYCHIATRIC: denies suicidal or homicidal ideation Vital Signs Vital Signs Vital Signs: 10/26/24 06:31 10/26/24 06:31 10/26/24 07:00 Temperature 98.7 F 98.6 F Temperature Source Oral Oral Pulse Rate 138 H 133 H Respiratory Rate 19 H 20 H Respiratory Effort Normal Non-Labored Respiratory Pattern Normal Blood Pressure 118/60 107/46 L Blood Pressure Mean 79 66 Blood Pressure Source Blood Pressure Position Blood Pressure Location Pulse Ox 97 100 Oxygen Delivery Method Room Air Room Air 10/26/24 08:00 10/26/24 08:25 10/26/24 08:35 Temperature 98.4 F 98.7 F Temperature Source Temporal Oral Pulse Rate 127 H 125 H 130 H Respiratory Rate 22 H 22 H 22 H Respiratory Effort Respiratory Pattern Blood Pressure 102/67 102/66 111/93 H Blood Pressure Mean 78 78 99 Blood Pressure Source Monitor Monitor Blood Pressure Position Semi-Fowlers Blood Pressure Location Right Arm Pulse Ox 100 100 100 Oxygen Delivery Method Room Air Room Air Room Air 10/26/24 08:44 10/26/24 08:45 10/26/24 08:56 Temperature 98.6 F 97.5 F L Temperature Source Oral Temporal Pulse Rate 123 H 118 H 120 H Respiratory Rate 22 H 22 H 24 H Respiratory Effort Respiratory Pattern Blood Pressure 99/70 103/70 103/70 Blood Pressure Mean 79 81 81 Blood Pressure Source Monitor Monitor Blood Pressure Position Left Lateral Blood Pressure Location Right Arm Pulse Ox 100 100 100 Oxygen Delivery Method Room Air Room Air 10/26/24 09:00 10/26/24 09:11 Temperature 97.8 F 97.8 F Temperature Source Temporal Temporal Pulse Rate 121 H 119 H Respiratory Rate 21 H 22 H Respiratory Effort Respiratory Pattern Blood Pressure 103/70 129/95 H Blood Pressure Mean 81 106 Blood Pressure Source Monitor Blood Pressure Position Left Lateral Blood Pressure Location Right Arm Pulse Ox 100 100 Oxygen Delivery Method Room Air Room Air Weight Weight: 61.4 kg Body Mass Index (BMI) 23.2 Physical Exam Narrative GENERAL: cooperative HEENT: Atraumatic; normocephalic EYES; Anicteric, Normal Conjunctiva NECK; supple, normal thyroid, RESPIRATORY: Diminished to auscultation CARDIOVASCULAR: Regular S1 S2, GI: soft, normoactive bowel sounds, : No Renal angle tenderness; EXTREMITIES: No edema, no clubbing, MUSCULOSKELETAL: no muscle wasting NEURO: Awake; no lateralizing signs. SKIN: No Rash PSYCH; Flat affect Results Lab / Micro Data 10/26/24 06:23 10/26/24 06:23 Labs: Laboratory Results - last 24 hr 10/26/24 06:23: WBC 20.0 H, RBC 1.06 L, Hgb 3.3 L*, Hct 10.5 L, MCV 99.1 H, MCH 31.1, MCHC 31.4 L, RDW Std Deviation 43.8, RDW Coeff of Otilia 12.8, Plt Count 186, MPV 11.9, Immature Gran % (Auto) 2.200 H, Neut % (Auto) 66.6, Lymph % (Auto) 25.6, Bent % (Auto) 5.5, Eos % (Auto) 0.1, Baso % (Auto) 0.0, Absolute Neuts (auto) 13.3 H, Absolute Lymphs (auto) 5.13 H, Nucleated RBC % 0.4, Differential Comment , Diff Path Review February, PT 15.0 H, INR 1.2, APTT 25.4, Sodium 140, Potassium 3.9, Chloride 113 H, Carbon Dioxide 14.0 L, Anion Gap 13, BUN 26 H, Creatinine 1.06 H, Estim Creat Clear Calc 47.52, Est GFR (MDRD) Af Amer 67, Est GFR (MDRD) Non-Af 56 L, BUN/Creatinine Ratio 24.5 H, Glucose 226 H, Calcium 8.0 L, Total Bilirubin 0.20, Direct Bilirubin 0.05, AST 10 L, ALT 8 L, Alkaline Phosphatase 48, Total Protein 4.2 L, Albumin 2.4 L, Globulin 1.8 L, Lipase 85 H 10/26/24 06:44: Blood Type O NEGATIVE, Antibody Screen NEGATIVE, Crossmatch See Detail 10/26/24 07:02: Lactic Acid 7.8 H*, Ethyl Alcohol < 3.0 Micro: Microbiology 10/26/24 06:55 Stool Stool Occult Blood (JERRY) - Final Imaging Radiology Impression Abdomen/Pelvis CTA 10/26/24 06:50 IMPRESSION: 6.3 cm x 6.7 cm x 6 cm hypodense mass in the right lower quadrant as described. Pelvic sonogram correlation recommended for further evaluation. Status post cholecystectomy. Electronically Signed: Rome Lim MD at 8:26 EST , Chest X-Ray 10/26/24 07:35 IMPRESSION: Mild degree of vascular congestion and possible early CHF. Electronically Signed: Rome Lim MD at 8:30 EST , Assessment & Plan Assessment/Plan (1) Alcohol abuse: (2) Acute blood loss anemia: (3) Lumbar scoliosis: QUALIFIERS: Scoliosis type: other secondary scoliosis Qualified Code(s): M41.56 - Other secondary scoliosis, lumbar region PLAN: Plan Patient is a 63-year-old lady presented with progressive generalized weakness found to have hemoglobin of 3.3 1. Acute upper gastrointestinal bleeding ? Suspected to be secondary to gastritis versus peptic ulcer disease patient reports heavy use of alcohol as well as [id number] NSAIDs. Patient was started on Protonix drip octreotide antibiotic therapy with ceftriaxone admitted to the intensive care unit consultation placed to GI Dr. Friend was notified from the ED prior to patient being admitted 2. Acute blood loss anemia ? Secondary to above patient was typed and crossmatched and order was given for patient to be transfused with 2 unit PRBC 3. Chronic alcohol dependence ? Patient was found to be tremulous in the ED started patient on alcohol CIWA withdrawal protocol with phenobarb taper 4. Leukocytosis ? Possibly reactive 5. Chronic back pain ? Patient was taking [id number] NSAIDs for pain relief. Cessation advised. Patient was placed on acute pain management protocol 6. Tobacco dependence ? Counseled on cessation, offered nicotine patch for tobacco cravings 7. DVT prophylaxis ? Bilateral SCDs, chemoprophylaxis contraindicated in view of patient presentation Time spent in the patient's overall evaluation,decision-making process, review of diagnostic data, adjustment of management, discussion with other providers, nursing nursing and ancillary staff involved in patient's care documentation, 75 minutes Advance planning; did discuss with the patient and family regarding advanced directives as well as CODE STATUS. Did explain the various scenarios involved ( FULL CODE, DNR CCA, DNR CCA with no intubation, and DNR CC and what each meant) patient elected to remain full code with CPR and intubation if needed, order was placed. Time spent on discussion 16 minutes. Charges/Coding Multi Select Codes Visit Charges Visit Charges: 37717 Init [place] [id number] Hospitalists' Procedures Procedures: 28069 Advncd Care Plan 30 Min
--- NOTE | 2024-10-26 09:57 | ED.RN ---
second unit of blood infused and flushing at this time
[2024-10-26 11:14] LABS: Reflex Lactate? Y
[2024-10-26] MEDS: Dext 5%-0.45% NS 1,000 ML 100 ML IV (12:31)
[2024-10-26 12:40] LABS: Hemoglobin 6.1 g/dL (12.0-15.0)
[2024-10-26 12:59] LABS: Lactic Acid 2.4 mmol/L (0.4-1.9)
--- NOTE | 2024-10-26 13:29 | CASEMGMT ---
Addendum entered by Eduardo Thrasher 10/26/24 14:30: Katherine, in registration, called this RN CM asking if pt would give permission for her to call HR @ [employer] to get insurance information. Pt gave permission to this RN CM while Katherine on the phone. Katherine then called this RN CM stating [employer] informed her that pt is not eligible for insurance benefits until Tuesday. Pt made aware. She states she has the letter in her wallet @ home stating that her insurance went into effect 10/14/24 and states she will ask her son to go to her home and bring it in to [facility], but states he will not be available to do this until tomorrow. Original Note: RN CM STAFF CONSULTANT CM?to room to meet with patient for initial transition planning/care coordination assessment. RN CM?introduced self and role at [facility]. Pt voices understanding and consents to assessment?at this time. Pt resting in bed in no distress at this time. Pt is A/O at this time and answers all questions appropriately. Care providers, pharmacy, and demographics verified/updated at this time. PCP: Dr Shlomo Beasley Specialists: Dr Minesh camilo Preferred Pharmacy: [facility], [place] Insurance: Listed as self-pay. Pt states she [place] [employer] [place] [employer] [facility] insurance through her job, [employer], that just went into effect 10/14/24. She states her insurance card is in her wallet @ home. Call placed to Katherine in registration who states she will look into this and to call this RN CM back. Prescription Benefit: unknown at this time. LNOK: Pt has only one adult child, Reymundo. Living Arrangements: Lives alone in 2-story home w/basement, where laundry is. 4 steps to enter. Pt states no difficulty w/the stairs. She is independent w/ADL's and IADL's and works full-time @ [employer]. Transportation:?Pt states drives self and states no transportation concerns at this time. Son or dtr-in-law will take her home @ discharge. DME: Denies using any DME. HHC/SNF: No hx Drugs: Pt states she has hx of illegal drug use, stating that she only used for a few years and it has been over 25 yrs since last used. ETOH: Pt drinks 3-4 beers/day on most days and sometimes will drink 6-7 beers/day on the weekend. She states she has drank for ~ 40 years and states there is also a family history of this. She has went to AA in the past (many years ago). She is interested in ETOH resources to stop drinking, but states does not feel up to that today. She states someone can come in to see her tomorrow, if available. KELBY, Mitzi, made aware. Pt wishes to return home and [facility] has no concerns with going home at time of discharge. CM?to follow for any further discharge planning/needs. Pt voices no further concerns/needs at this time. Advised pt to ask for CM?if any further questions/concerns/needs arise. Voices understanding. PLAN: Home SW to follow for ETOH abuse resources. Sherwin TIRADO RN CM
[2024-10-26] MEDS: Phenobarbital 32.4 MG Tablet 64.8 MG PO ×3 (13:42→20:16)
--- NOTE | 2024-10-26 14:50 | PCM.PRE.AN2 ---
ASA Classification* ASA Classification ASA Classification: 3 and E Assessment & Plan Anesthesia* Anesthesia Assessment Anesthesia Assessment: Discussed sedation and/or anesthesia options, risks, benefits, and alternatives with patient/parents/legal guardian/POA. Questions invited. The patient/parents/legal guardian/POA seems to understand and agrees to proceed with anesthesia plan. Reviewed the physical assessment, medical history, allergy history and patient home medications list prior to surgery/procedure/anesthetic and documented any changes. Performed airway and anesthesia risk assessments. Anesthesia Type Anesthesia Type: MAC History Source History Obtained from:: Patient and Chart Anesthesia Focused Assessment* Temperature: 98.3 F Pulse Rate: 102 Blood Pressure: 116/81 Respiratory Rate: 20 Pulse Ox: 98 Oxygen Delivery Method: Room Air Airway Assessment Mouth opens: >3 cm Mallampati Score: II Teeth Condition: Dentures (Patient has full dentures top and bottom. Bottoms were already out.) Neck Range of motion (ROM): Full ROM Focused Labs Anesthesia Preop lab: CBC WBC 20.0 K/mm3 (4.4-11.0) H 10/26/24 06:23 RBC 1.06 M/mm3 (4.2-5.4) L 10/26/24 06:23 Hgb 6.1 g/dL (12.0-15.0) L 10/26/24 12:15 Hct 18.0 % (37-47) L 10/26/24 12:15 Plt Count 186 K/mm3 (150-450) 10/26/24 06:23 CHEMISTRY Potassium 3.9 mmol/L (3.5-5.1) 10/26/24 06:23 Sodium 140 mmol/L (136-145) 10/26/24 06:23 BUN 26 mg/dL (7-18) H 10/26/24 06:23 Creatinine 1.06 mg/dL (0.55-1.02) H 10/26/24 06:23 Glucose 226 mg/dL (74-106) H 10/26/24 06:23 TSH 2.53 uIU/mL (0.358-3.74) 08/02/17 16:21 COAG PT 15.0 SECONDS (11.7-14.9) H 10/26/24 06:23 Pre-Assessment Diagnosis/Proposed Procedure Planned Operative Procedure(s): Esophagogastroduodenoscopy. 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 When Was Last Pacemaker Check QUESTION #4 FULL TEXT: You/Your Family Experience fever (hyperthermia) with Anesthesia Last Oral Intake Last Oral intake: Last Oral Intake NPO since 00:00 10/26/24 14:30 Meds taken in AM with sips of water? Meds patient instructed to take am of surgery Any additional information?: Yes Meds taken in AM with sips of water?: Yes PONV PONV - honing machine operator production: PONV - honing machine operator production Female HX of Motion Sickness HX of N/V After Surgery Non-Smoker Duration of Surgery greater than 60 minutes Number of Risk Factors PONV Score Height & Weight Height & Weight: Anesthesia: Height & Weight Height 5 ft 4 in 10/26/24 14:30 Weight: 63 kg 10/26/24 14:30 Body Mass Index (BMI) 23.8 10/26/24 14:30 Respiratory Assessment Respiratory Assessment - honing machine operator production: Respiratory Tract Infection Hx - honing machine operator production Hx Respiratory Tract Infection Any additional information?: Yes Hx Respiratory Tract Infection: No STOP Sleep Apnea STOP Sleep Apnea - honing machine operator production: STOP Sleep Apnea - honing machine operator production Hx Hypertension No 10/26/24 11:51 Hx Sleep Apnea No 10/26/24 11:51 CPAP BIPAP Do you snore loudly (louder No 10/26/24 11:51 than talking or can be heard Do you often feel tired/ No 10/26/24 11:51 fatigued/ sleepy during daytime? Has anyone observed you stop No 10/26/24 11:51 breathing during sleep? STOP Results Negative 10/26/24 11:51 QUESTION #5 FULL TEXT : Do you snore loudly (louder than talking or can be heard through closed doors)? Tobacco Use History Tobacco Use History - honing machine operator production: Tobacco Use History - honing machine operator production Tobacco Use Smoking Status Current every day smoker 10/26/24 11:51 Hx Tobacco Use No 10/26/24 11:51 Years Smoking Packs Smoked per Day Smoking Cessation Date was within the last 15 years Hx Smoking Cessation Date Hx Smoking Cessation Counseling Hematologic Medial History Hematologic Hx - honing machine operator production: Hematologic Medical Hx - director of product marketing Hx of Blood Transfusion No 10/26/24 11:51 Hx of Transfusion in last 3 No 10/26/24 11:51 Months Date of Last Transfusion (if within last 3 months) Ever experience any problems No 10/26/24 11:51 with transfusion(s)? Specify any problems Hx of Preganancy in last 3 N/A 10/26/24 11:51 Months Nurse Filling Out Transfusion HFALK 10/26/24 11:51 & Questions: Date: 10/26/24 10/26/24 11:51 Time: 11:57 10/26/24 11:51 Patient unable to answer at this time (ie. confused, unrespo /Reproduction History /Reproductive History - honing machine operator production: /Reproductive Hx- honing machine operator production Hx Now Gestational Age (in weeks): EDC: Hx Hx Para Hx Section SAB Active Medications Active Medications: Current Medications Generic Name Dose Route Start Last Admin Trade Name Freq PRN Reason Stop Dose Admin Acetaminophen 650 mg 10/26/24 11:45 Acetaminophen 325 Mg Tablet PO Q6H PRN PRN Pain 1-10 Or Fever>100.7 Albuterol Sulfate 2.5 mg 10/26/24 11:45 Albuterol 2.5 Mg/3 Ml Vial.Neb. INHALATION Q2H PRN PRN SOB &/OR WHEEZING Dicyclomine HCl 20 mg 10/26/24 11:45 Dicyclomine 10 Mg Capsule PO Q6H PRN PRN abdominal discomfort Folic Acid 1 mg 10/27/24 08:00 Folic Acid 1 Mg Tablet PO DAILY@0800 YONAS Gabapentin 300 mg 10/26/24 11:45 Gabapentin 300 Mg Capsule PO Q8H PRN PRN moderate to severe anxiety Guaifenesin 10 ml 10/26/24 11:45 Guaifenesin 10 Ml Udc (200mg/10ml) PO Q4H PRN PRN COUGH Hydromorphone HCl 0.5 - 1 mg 10/26/24 11:45 Hydromorphone 1 Mg/Ml Syringe IV Q3H PRN PRN Pain Score 6-10 Hydroxyzine Pamoate 50 mg 10/26/24 11:45 Hydroxyzine Candice 25 Mg Capsule PO Q4H PRN PRN mild anxiety Pantoprazole Sodium 80 mg/ 100 mls @ 10 mls/hr 10/26/24 06:50 10/26/24 07:45 Sodium Chloride CONT INF 10 mls/hr Q10H YONAS Administration Octreotide Acetate 0.5 mg/ 250 mls @ 25 mls/hr 10/26/24 06:55 10/26/24 08:05 Dextrose CONT INF 25 mls/hr .Q10H YONAS Administration Dextrose/Sodium Chloride 1,000 mls @ 100 mls/hr 10/26/24 11:45 10/26/24 12:31 IV 10/28/24 03:44 100 mls/hr .Q10H YONAS Administration Protocol Ceftriaxone Sodium 1 gm in 50 mls @ 100 mls/hr 10/27/24 10:00 Rocephin IV 11/02/24 10:01 Q24 YONAS Influenza Virus Vaccine 45 mcg 10/27/24 08:00 Flu Vacc (6mos Up)/Pf 45 Mcg/0.5 Ml Syringe IM 10/27/24 08:01 .ONCE ONE Iopamidol 0 ml 10/26/24 07:00 10/26/24 08:13 Contrast Allergy Safety Check IV Not Given X1 [facility] Loperamide HCl 2 mg 10/26/24 11:45 Loperamide 2 Mg Capsule PO Q4H PRN PRN LS Melatonin 3 mg 10/26/24 22:00 Melatonin 3 Mg Tablet PO QHS PRN PRN INSOMNIA Nicotine 21 mg 10/26/24 11:45 10/26/24 12:31 Nicotine 21 Mg Patch TD Not Given DAILY [facility] Nitroglycerin 0.4 mg 10/26/24 11:45 Nitroglycerin (Inpatient Use) 0.4 Mg Tab.Subl SL Q5M PRN CARDIAC/CHEST PAIN Ondansetron HCl 4 mg 10/26/24 11:45 Ondansetron 4 Mg/2 Ml Vial IV Q8H PRN PRN NAUSEA/VOMITING Ondansetron HCl 8 mg 10/26/24 11:45 Ondansetron 8 Mg Tablet PO Q8H PRN PRN NAUSEA Oxycodone HCl 5 mg 10/26/24 11:45 Oxycodone 5 Mg Tablet PO Q4H PRN PRN Pain Score 4-10 Phenobarbital 97.2 mg 10/26/24 13:00 10/26/24 13:42 Phenobarbital 32.4 Mg Tablet PO 10/30/24 20:59 97.2 mg Q4H YONAS Administration Taper Sodium Chloride 10 - 40 ml 10/26/24 11:59 0.9% Saline Lock 10 Ml Syringe IV UD PRN SALINE FLUSH Thiamine HCl 100 mg 10/27/24 08:00 Thiamine Hydrochloride 100 Mg Tablet PO DAILYCM YONAS Trazodone HCl 100 mg 10/26/24 22:00 Trazodone 100 Mg Tablet PO QHS PRN INSOMNIA PFSH Medical History Alcohol abuse Leg pain Home Medications ?Medication ?Instructions ?Recorded ?Last Taken ?Type timolol maleate 0.5 % eye drops 1 drp ophthalmic (eye) BID glaucoma 10/26/24 10/25/24 History Allergy/AdvReac Type Severity Reaction Status Date / Time No Known Allergies Allergy Verified 02/16/24 08:03 Surgical History H/O dilation and curettage Hx of cholecystectomy Social History household members: none current occupational status: employed current occupation: [employer] pets and animals: Yes (1) pets and animals: cat(s) Smoking Status: Current every day smoker tobacco type: cigarettes Tobacco: How many years used: 40 alcohol intake: current alcohol intake frequency: 3 or more drinks per day substance use type: does not use and former substance user caffeine: Yes (1) Type: carbonated beverages what type of physical activity do you participate in: none frequency: 1-2 times per week do you feel safe at home: Yes Review of Systems (Anesthesia) ROS Narrative System reviewed and no additional complaints, except as documented.
--- NOTE | 2024-10-26 15:33 | CON.PCM.GI_ITS ---
HPI Consult Data Date of Consult: 10/26/24 HPI Narrative Reason for Consultation: GI bleed HPI Narrative: NESSA AMARAL, is a 63-year-old female who reports that she is only on eyedrops and otherwise takes no daily medications. She states she has had 5-10 episodes of loose stool/diarrhea since Tuesday. She states that it does appear dark in color. She denies any history of bleeding disorder or blood thinner use. She reports she also had 1-2 episodes of vomiting associated with this but denies any known sick contacts. She states has been no recent antibiotic use or travel outside the country. She states that she is getting progressively weaker as her symptoms have persisted and she is short of breath with even simple actions such as sitting up or trying to walk. Secondary to her weakness she fell this morning and could not get up and with the progressive/persistent diarrhea and increasing weakness EMS was called and she was brought in for evaluation Of note patient does states she drinks 3-4 beers per day. She states that she had an EGD roughly 10 years ago for esophageal stricture but denies any history of esophageal varices. She also denies any history of intestinal disorder such as diverticulosis IBS ulcerative colitis or Crohn's disease. Her hemoglobin was discovered to be 3.3 in the ED. PENDING SALE TO [facility] Medical History Alcohol abuse Leg pain Home Medications ?Medication ?Instructions ?Recorded ?Last Taken ?Type timolol maleate 0.5 % eye drops 1 drp ophthalmic (eye) BID glaucoma 10/26/24 10/25/24 History Allergy/AdvReac Type Severity Reaction Status Date / Time No Known Allergies Allergy Verified 02/16/24 08:03 Surgical History H/O dilation and curettage Hx of cholecystectomy Social History household members: none current occupational status: employed current occupation: [email or web address] pets and animals: Yes (1) pets and animals: cat(s) Smoking Status: Current every day smoker tobacco type: cigarettes Tobacco: How many years used: 40 alcohol intake: current alcohol intake frequency: 3 or more drinks per day substance use type: does not use and former substance user caffeine: Yes (1) Type: carbonated beverages what type of physical activity do you participate in: none frequency: 1-2 times per week do you feel safe at home: Yes ROS ROS Narrative GENERAL: denies fever, chills, night sweats, HEENT: denies headache, sinus congestion, RESPIRATORY: dyspnea on exertion CARDIAC: denies chest pain, palpitations, orthopnea, PND GASTROINTESTINAL: , melena, GENITOURINARY: denies dysuria, urgency, frequency, heamaturia EXTREMITY: denies swelling MUSCULOSKELETAL: Chronic back pain NEUROLOGIC: denies focal numbness, weakness, tingling HEMATOLOGIC: denies easy bruising and/or hemorrhage INTEGUMENT: denies rashes PSYCHIATRIC: denies suicidal or homicidal ideation Physical Exam Narrative GENERAL: cooperative HEENT: Atraumatic; normocephalic EYES; Anicteric, Normal Conjunctiva NECK; supple, normal thyroid, RESPIRATORY: Diminished to auscultation CARDIOVASCULAR: Regular S1 S2, GI: soft, normoactive bowel sounds, : No Renal angle tenderness; EXTREMITIES: No edema, no clubbing, MUSCULOSKELETAL: no muscle wasting NEURO: Awake; no lateralizing signs. SKIN: No Rash PSYCH; Flat affect Lab / Micro Data 10/26/24 12:15 10/26/24 06:23 Labs: Laboratory Results - last 24 hr 10/26/24 06:23: WBC 20.0 H, RBC 1.06 L, Hgb 3.3 L*, Hct 10.5 L, MCV 99.1 H, MCH 31.1, MCHC 31.4 L, RDW Std Deviation 43.8, RDW Coeff of Otilia 12.8, Plt Count 186, MPV 11.9, Immature Gran % (Auto) 2.200 H, Neut % (Auto) 66.6, Lymph % (Auto) 25.6, Glasscock % (Auto) 5.5, Eos % (Auto) 0.1, Baso % (Auto) 0.0, Absolute Neuts (auto) 13.3 H, Absolute Lymphs (auto) 5.13 H, Nucleated RBC % 0.4, Differential Comment , Diff Path Review February, PT 15.0 H, INR 1.2, APTT 25.4, Sodium 140, Potassium 3.9, Chloride 113 H, Carbon Dioxide 14.0 L, Anion Gap 13, BUN 26 H, C reatinine 1.06 H, Estim Creat Clear Calc 47.52, Est GFR (MDRD) Af Amer 67, Est GFR (MDRD) Non-Af 56 L, BUN/Creatinine Ratio 24.5 H, Glucose 226 H, Calcium 8.0 L, Total Bilirubin 0.20, Direct Bilirubin 0.05, AST 10 L, ALT 8 L, Alkaline Phosphatase 48, Total Protein 4.2 L, Albumin 2.4 L, Globulin 1.8 L, Lipase 85 H 10/26/24 06:44: Blood Type O NEGATIVE, Antibody Screen NEGATIVE, Crossmatch See Detail 10/26/24 06:44: Crossmatch See Detail 10/26/24 07:02: Lactic Acid 7.8 H*, Ethyl Alcohol < 3.0 10/26/24 09:10: PT Cancelled, INR Cancelled, Total Bilirubin Cancelled, Direct Bilirubin Cancelled, AST Cancelled, ALT Cancelled, Alkaline Phosphatase Cancelled, Total Protein Cancelled, Albumin Cancelled, Globulin Cancelled 10/26/24 12:15: Hgb 6.1 L, Hct 18.0 L, Lactic Acid 2.4 H* Micro: Microbiology 10/26/24 06:55 Stool Stool Occult Blood (JERRY) - Final Imaging Radiology Impression Abdomen/Pelvis CTA 10/26/24 06:50 IMPRESSION: 6.3 cm x 6.7 cm x 6 cm hypodense mass in the right lower quadrant as described. Pelvic sonogram correlation recommended for further evaluation. Status post cholecystectomy. Electronically Signed: Rome Lim MD at 8:26 EST , Chest X-Ray 10/26/24 07:35 IMPRESSION: Mild degree of vascular congestion and possible early CHF. Electronically Signed: Rome Lim MD at 8:30 EST , Assessment & Plan Assessment/Plan (1) Alcohol abuse: (2) Acute blood loss anemia: (3) Lumbar scoliosis: QUALIFIERS: Scoliosis type: other secondary scoliosis Qualified Code(s): M41.56 - Other secondary scoliosis, lumbar region PLAN: Plan Patient is a 63-year-old lady presented with progressive generalized weakness found to have hemoglobin of 3.3. Differential diagnosis does include peptic ulcer disease, portal hypertension, gastric antral vascular ectasia, angiodysplasia, malignancy. She does take NSAIDs which increases her risk of acute GI bleed secondary to ulcerations in the upper GI tract. She will need to undergo an upper endoscopy. She was explained alternatives, risk and benefits include understanding bleeding, infection, sepsis, perforation, need for return to . Agree with transfusion of packed red blood cells, continue Protonix drip and octreotide. Charges/Coding Visit Charges Inpatient E&M: 45656 Init Hosp L3
--- NOTE | 2024-10-26 16:15 | OP.EGD_ITS ---
Patient Name: Brianna Victoria Procedure Date: 10/26/2024 3:32 PM Date of : 1960 Age: 63 Procedure: Upper GI endoscopy Indications: Melena, Recent gastrointestinal bleeding Providers: Jt Walker DO Medicines: Monitored Anesthesia Care Patient Profile: Patient has symptoms of acute epigastric abdominal pain. Complications: No immediate complications. Procedure: Pre-Anesthesia Assessment: - Prior to the procedure, a History and Physical was performed, and patient medications and allergies were reviewed. The patient is competent. The risks and benefits of the procedure and the sedation options and risks were discussed with the patient. All questions were answered and informed consent was obtained. Patient identification and proposed procedure were verified by the physician in the pre-procedure area. Mental Status Examination: alert and oriented. Airway Examination: normal oropharyngeal airway and neck mobility. Respiratory Examination: clear to auscultation. CV Examination: normal. Prophylactic Antibiotics: The patient does not require prophylactic antibiotics. Prior Anticoagulants: The patient has taken no anticoagulant or antiplatelet agents except for NSAID medication. ASA Grade Assessment: II - A patient with mild systemic disease. After reviewing the risks and benefits, the patient was deemed in satisfactory condition to undergo the procedure. The anesthesia plan was to use monitored anesthesia care (MAC). Immediately prior to administration of medications, the patient was re-assessed for adequacy to receive sedatives. The heart rate, respiratory rate, oxygen saturations, blood pressure, adequacy of pulmonary ventilation, and response to care were monitored throughout the procedure. The physical status of the patient was re-assessed after the procedure. After obtaining informed consent, the endoscope was passed under direct vision. Throughout the procedure, the patient's blood pressure, pulse, and oxygen saturations were monitored continuously. The Endoscope was introduced through the mouth, and advanced to the second part of duodenum. The upper GI endoscopy was accomplished without difficulty. Scope In: 3:43:23 PM Scope Out: 4:09:03 PM Total Procedure Duration Time 0 hours 25 minutes 40 seconds Findings: A 19 mm bleeding Nida-Cabrera tear with stigmata of recent bleeding was found. Coagulation for hemostasis using argon plasma at 0.3 liters/minute and 20 orozco was successful. Estimated blood loss was minimal. No gross lesions were noted in the entire examined stomach. One spurting cratered duodenal ulcer with a visible vessel was found in the duodenal bulb. The lesion was 20 mm in largest dimension. Coagulation for hemostasis using heater probe was unsuccessful. Coagulation for hemostasis using argon plasma at 0.5 liters/minute and 30 orozco was successful. To prevent bleeding post-intervention, two hemostatic clips were successfully placed. Clip furniture sales associate: [employer]. There was no bleeding at the end of the procedure. Impression: - Nida-Cabrera tear. Treated with argon plasma coagulation (APC). - No gross lesions in the entire stomach. - Spurting duodenal ulcer with a visible vessel. Treatment not successful. Treated with a heater probe. Treated with argon plasma coagulation (APC). Clips were placed. Clip furniture sales associate: [employer]. - No specimens collected. Recommendation: - Return patient [facility] for [facility] care. - Clear liquid diet. - Continue present medications. Procedure Code(s): --- Professional --- 16930, Esophagogastroduodenoscopy, flexible, transoral; with control of bleeding, any method CPT copyright 2021 [employer]. All rights reserved. The codes documented in this report are preliminary and upon checker and packer review may be revised to meet current compliance requirements. Jt Walker DO 10/26/2024 4:15:27 PM This report has been signed electronically. Number of Addenda: 0 Note Initiated On: 10/26/2024 3:32 PM
--- NOTE | 2024-10-26 16:15 | OP.CCLET_ITS ---
10/26/2024 Shlomo Beasley Re : Upper GI endoscopy procedure for Brianna Victoria Dear Dr. Beasley This procedure was performed on Saturday, October 26, 2024. My impressions and recommendations are as follows: Impressions : - Nida-Cabrera tear. Treated with argon plasma coagulation (APC). - No gross lesions in the entire stomach. - Spurting duodenal ulcer with a visible vessel. Treatment not successful. Treated with a heater probe. Treated with argon plasma coagulation (APC). Clips were placed. Clip charge account authorizer: [employer]. - No specimens collected. Recommendations : - Return patient to [facility] for [facility] care. - Clear liquid diet. - Continue present medications. My findings are described in the full procedure note, which is enclosed. If I can be of further assistance, please feel free to contact me at . Sincerely, Jt Walker, 10/26/2024 4:15:27 PM This report has been signed electronically.
--- NOTE | 2024-10-26 16:31 | CHAPLAIN ---
Type of Pastoral Visit ___ Initial Visit ___ Follow-up Visit ___ On-call Visit ___ General Patient Visit ___ Spiritual Assessment ___ Family Conference ___ Bereavement ___ Rapid Response ___ Code Blue ___ Other (describe below) Pastoral Care Referral From ___ Patient ___ Family ___ Nurse ___ Physician ___ Lead Neurodiagnostic Technologist ___ Hearing Aid Technician ___ Other (describe below) Sacrament/Intervention ___ Active listening ___ Anointing ___ Baptist ___ Bereavement ___ Communion ___ Claudia exploration ___ ___ Life review ___ Prayer ___ Reconciliation ___ Sacrament of Sick ___ Supportive presence ___ Wedding ___ Other (describe below) Pastoral Comments patient was out of the room for a procedure when visit was attempted
--- NOTE | 2024-10-26 16:47 | PCM.POST.ANE ---
Anesthesia: Postop Eval I Current Vital Signs Temperature: 97 F Pulse Rate: 85 Blood Pressure: 117/75 Respiratory Rate: 20 Pulse Ox: 100 Oxygen Delivery Method: Room Air Assessment Airway patent: Yes Spontaneous unlabored respirations: Yes Mental status: Awake and Calm nausea: No Vomiting: No Anesthesia Complication: No Fluid Hydration Crystalloid volume administer (ml): 30 Total IV fluid infused: 30 Progress Note Anesthesia document: Postop Eval 1 completed: Yes
[2024-10-26 18:40] LABS: Hematocrit 22.7 % (37-47); Hemoglobin 7.5 g/dL (12.0-15.0)
[2024-10-26] MEDS: MELATONIN 3 MG TABLET PO (20:16)
--- NOTE | 2024-10-26 21:51 | POSTOPAN2_ITS ---
Anesthesia Postop Eval I Sum Postop Eval Completion status Anesthesia document: Postop Eval 1 completed: Yes Anesthesia Postop Eval I Summary Anesthesia Postop Eval I Summary: Anesthesia Postop Eval I: Assessment Summary Airway patent Yes 10/26/24 16:50 BUTTON FACING MACHINE OPERATOR.[email or web address] Spontaneous unlabored Yes 10/26/24 16:50 BUTTON FACING MACHINE OPERATOR.[email or web address] respirations Mental status Awake,Calm 10/26/24 16:50 BUTTON FACING MACHINE OPERATOR.[email or web address] nausea No 10/26/24 16:50 BUTTON FACING MACHINE OPERATOR.[email or web address] Vomiting No 10/26/24 16:50 BUTTON FACING MACHINE OPERATOR.[email or web address] Anesthesia Postop Eval I: Fluid Summary Crystalloid volume administer 30 10/26/24 16:50 BUTTON FACING MACHINE OPERATOR.[email or web address] (ml) Colloids volume administered ( ml) Blood Product volume administered (ml) Total IV fluid infused 30 10/26/24 16:50 BUTTON FACING MACHINE OPERATOR.[email or web address] Anesthesia Postop Eval I: Summary Notes Anesthesia Complication No 10/26/24 16:50 BUTTON FACING MACHINE OPERATOR.[email or web address] Anesthesia Complication Comment: Post-operative progress note Anesthesia: Postop Eval II Evaluation Mental status: Awake and Calm Pain Level: 0 nausea: No Vomiting: No Complications Anesthesia Complication: No
--- NOTE | 2024-10-26 21:51 | PCM.POSTANE2 ---
Anesthesia Postop Eval I Sum Postop Eval Completion status Anesthesia document: Postop Eval 1 completed: Yes Anesthesia Postop Eval I Summary Anesthesia Postop Eval I Summary: Anesthesia Postop Eval I: Assessment Summary Airway patent Yes 10/26/24 16:50 LINE CREW SUPERVISOR.[email or web address] Spontaneous unlabored Yes 10/26/24 16:50 LINE CREW SUPERVISOR.[email or web address] respirations Mental status Awake,Calm 10/26/24 16:50 LINE CREW SUPERVISOR.[email or web address] nausea No 10/26/24 16:50 LINE CREW SUPERVISOR.[email or web address] Vomiting No 10/26/24 16:50 LINE CREW SUPERVISOR.[email or web address] Anesthesia Postop Eval I: Fluid Summary Crystalloid volume administer 30 10/26/24 16:50 LINE CREW SUPERVISOR.[email or web address] (ml) Colloids volume administered ( ml) Blood Product volume administered (ml) Total IV fluid infused 30 10/26/24 16:50 LINE CREW SUPERVISOR.[email or web address] Anesthesia Postop Eval I: Summary Notes Anesthesia Complication No 10/26/24 16:50 LINE CREW SUPERVISOR.[email or web address] Anesthesia Complication Comment: Post-operative progress note Anesthesia: Postop Eval II Evaluation Mental status: Awake and Calm Pain Level: 0 nausea: No Vomiting: No Complications Anesthesia Complication: No
[2024-10-27] VITALS (20 sets, daily range): BP systolic 87–148; BP diastolic 57–95; PULSE 74–89; RESP 14–25; TEMP 36.1–37; O2SAT 90–99; BMI 22.9
[2024-10-27] MEDS: Phenobarbital 32.4 MG Tablet 64.8 MG PO ×6 (00:10→20:31)
[2024-10-27] MEDS: 0.9% Saline Lock 10 ML Syringe IV ×2 (00:10→04:01)
[2024-10-27 00:12] LABS: Hematocrit 20.4 % (37-47); POSITIVE COUNT YES
[2024-10-27] MEDS: Dext 5%-0.45% NS 1,000 ML 100 ML IV ×2 (01:59→14:39)
[2024-10-27] MEDS: Octreotide 0.5 MG in Dextrose 5%-Water (250mL Bag) 249 ML 25 MG CONT INF ×2 (04:00→14:38)
[2024-10-27] MEDS: Pantoprazole Sodium 80 MG in 0.9% Normal Saline (100mL Bag) 80 ML 10 MG CONT INF ×2 (04:00→14:40)
[2024-10-27 05:41] LABS: Absolute Lymphocyte Count 3.72 X10^3/uL (0.83-4.51); Basophil# 0.06 X10^3/uL; Basophil% 0.5 % (0-1); Eosinophil# 0.08 X10^3/uL; Eosinophils% 0.6 % (0-5); Hematocrit 21.1 % (37-47); Hemoglobin 7.1 g/dL (12.0-15.0); Lymphocyte # 3.72 X10^3/ul (0.83-4.51); Lymphocyte % 28.6 % (19-41); Mean Corp Hgb Conc 33.6 g/dL (32-36); Mean Corpuscular Hgb 28.3 pg (27.0-32.0); Mean Corpuscular Volume 84.1 fL (81-99); Mean Platelet Vol. 10.6 fl (6.2-12.0); Monocyte% 6.9 % (0-10); NRBC Flagged by Analyzer 3.3 % (0-5); Neutrophil # 8.04 X10^3/uL (2.7-7.7); Neutrophil % 61.8 % (47-70); POSITIVE COUNT YES; Platelet Count 96 K/mm3 (150-450); RBC Distribution Width CV 17.8 % (11.6-14.6); RBC Distribution Width SD 53.2 fl (35.1-43.9); Red Blood Count 2.51 M/mm3 (4.2-5.4)
[2024-10-27 05:49] LABS: Differential Indicated SCAN CRITERIA MET
[2024-10-27 05:53] LABS: Anion Gap 3 (5-15); BUN 10 mg/dL (7-18); BUN/Creat Ratio 15.2 RATIO (10-20); Chloride 114 mmol/L (98-107); Creatinine, Serum 0.66 mg/dL (0.55-1.02); EST Glomerular Filtration Rate 96 mL/min (>60); Est Glom Filt Rate - Afr Amer 116 mL/min (>60); Estimated Creatinine Clearance 76.32 ml/min; Glucose 115 mg/dL (74-106); Magnesium 1.8 mg/dL (1.6-2.6); Phosphorus 1.7 mg/dL (2.5-4.9); Sodium Level 138 mmol/L (136-145)
[2024-10-27 06:43] LABS: Differential Comment SCANNED; Platelet Estimate SLT DEC (ADEQ)
[2024-10-27] MEDS: Folic Acid 1 MG Tablet PO (08:17)
[2024-10-27] MEDS: Thiamine Hydrochloride 100 MG Tablet PO (08:18)
[2024-10-27] MEDS: Na Biphos/Potassium Phosphate PACKET 1 PACKET PO ×3 (08:19→17:05)
[2024-10-27] MEDS: Potassium Phosphate 40 MM in 0.9% Normal Saline (500mL Bag) 500 ML 62.5 MM IV (08:58)
--- NOTE | 2024-10-27 09:37 | PN.HOSP_ITS ---
Reason for Visit Reason for Visit: Diagnoses Acute posthemorrhagic anemia (10/26/24) Alcohol abuse, uncomplicated (10/26/24) Other secondary scoliosis, lumbar region (10/26/24) Subjective Subjective Underwent EGD on 10/27/2024 Objective Data Objective Data Vital Signs: Vital Signs Temp Pulse Resp BP Pulse Ox O2 Del Method O2 Flow Rate 97.8 F 87 24 H 95/57 L 98 Room Air 2 10/27/24 09:10 10/27/24 09:10 10/27/24 09:10 10/27/24 09:10 10/27/24 09:10 10/27/24 09:10 10/27/24 03:00 Oxygen Flow Rate (L/min) 2 Oxygen Delivery Method Room Air Weight: 60.9 kg Body Mass Index (BMI) 22.9 Intake & Output: Intake and Output for Last 24 Hours 10/25/24 10/26/24 10/27/24 23:59 23:59 23:59 Intake Total 3497.33 / 3497.33 2126.50 / 2126.50 Output Total 400 / 400 0 / 0 Balance 3097.33 / 3097.33 2126.50 / 2126.50 Lab / Micro Data 10/27/24 05:35 10/27/24 05:35 Labs: Laboratory Results - last 24 hr 10/26/24 00:01: Hgb 7.0 L, Hct 20.4 L 10/26/24 06:44: Crossmatch See Detail 10/26/24 06:44: Crossmatch See Detail 10/26/24 06:44: Crossmatch See Detail 10/26/24 12:15: Hgb 6.1 L, Hct 18.0 L, Lactic Acid 2.4 H* 10/26/24 18:10: Hgb 7.5 L, Hct 22.7 L 10/27/24 05:35: WBC 13.0 H, RBC 2.51 L, Hgb 7.1 L, Hct 21.1 L, MCV 84.1 D, MCH 28.3, MCHC 33.6 D, RDW Std Deviation 53.2 H, RDW Coeff of Otilia 17.8 H, Plt Count 96 L, MPV 10.6, Immature Gran % (Auto) 1.600 H, Neut % (Auto) 61.8, Lymph % (Auto) 28.6, [place] % (Auto) 6.9, Eos % (Auto) 0.6, Baso % (Auto) 0.5, Absolute Neuts (auto) 8.0 H, Absolute Lymphs (auto) 3.72, Nucleated RBC % 3.3, Differential Comment SCANNED, Platelet Estimate SLT DEC, Sodium 138, Potassium 4.0, Chloride 114 H, Carbon Dioxide 22.0, Anion Gap 3 L, BUN 10, Creatinine 0.66, Estim Creat Clear Calc 76.32, Est GFR (MDRD) Af Amer 116, Est GFR (MDRD) Non-Af 96, BUN/Creatinine Ratio 15.2, Glucose 115 H, Calcium 8.0 L, Phosphorus 1.7 L, Magnesium 1.8 Micro: Microbiology 10/26/24 06:55 Stool Stool Occult Blood (JERRY) - Final Physical Exam Narrative GENERAL: cooperative HEENT: Atraumatic; normocephalic EYES; Anicteric, Normal Conjunctiva NECK; supple, normal thyroid, RESPIRATORY: Diminished to auscultation CARDIOVASCULAR: Regular S1 S2, GI: soft, normoactive bowel sounds, : No Renal angle tenderness; EXTREMITIES: No edema, no clubbing, MUSCULOSKELETAL: no muscle wasting NEURO: Awake; no lateralizing signs. SKIN: No Rash PSYCH; Flat affect Assessment & Plan Assessment/Plan (1) Alcohol abuse: (2) Acute blood loss anemia: (3) Lumbar scoliosis: QUALIFIERS: Scoliosis type: other secondary scoliosis Qualified Code(s): M41.56 - Other secondary scoliosis, lumbar region PLAN: Plan Patient is a 63-year-old lady presented with progressive generalized weakness found to have hemoglobin of 3.3 1. Acute upper gastrointestinal bleeding ? Suspected to be secondary to gastritis versus peptic ulcer disease patient reports heavy use of alcohol as well as blwj-zfk-gngjueq NSAIDs. Patient was started on Protonix drip octreotide antibiotic therapy with ceftriaxone admitted to the intensive care unit consultation placed to GI Dr. Friend was notified from the ED prior to patient being admitted 10/27/2024 ;Underwent EGD Impressions : - Nida-Cabrera tear. Treated with argon plasma coagulation (APC). - No gross lesions in the entire stomach. - Spurting duodenal ulcer with a visible vessel. Treatment not successful. Treated with a heater probe. Treated with argon plasma coagulation (APC). Clips were placed. 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 - No specimens collected. 2. Acute blood loss anemia ? Secondary to above patient was typed and crossmatched and order was given for patient to be transfused with 2 unit PRBC - 10/27/2024; transfused 2 additional units 3. Chronic alcohol dependence ? Patient was found to be tremulous in the ED started patient on alcohol CIWA withdrawal protocol with phenobarb taper 4. Leukocytosis ? Possibly reactive 5. Chronic back pain ? Patient was taking alar-etf-xsejclu NSAIDs for pain relief. Cessation advised. Patient was placed on acute pain management protocol 6. Tobacco dependence ? Counseled on cessation, offered nicotine patch for tobacco cravings 7. DVT prophylaxis ? Bilateral SCDs, chemoprophylaxis contraindicated in view of patient presentation Time spent in the patient's overall evaluation,decision-making process, review of diagnostic data, adjustment of management, discussion with other providers, nursing nursing and ancillary staff involved in patient's care documentation, 52 minutes Charges/Coding Visit Charges Inpatient E&M: 06261 Subs Hosp L3
[2024-10-27] MEDS: Ceftriaxone 1 GM/50 ML BAG IV (10:30)
[2024-10-27] MEDS: Gabapentin 300 MG Capsule PO (13:55)
[2024-10-27] MEDS: Pantoprazole Sodium 40 MG Tablet PO (21:04)
[2024-10-27] MEDS: Timolol 0.5% 5ML OPTH.BTL 1 DRP OPHTHALMIC (21:16)
[2024-10-28] MEDS: Phenobarbital 32.4 MG Tablet 64.8 MG PO ×6 (00:38→20:00)
[2024-10-28] MEDS: Dext 5%-0.45% NS 1,000 ML 100 ML IV (00:42)
[2024-10-28 00:44] VITALS: BP 140/89; PULSE 76; RESP 15; TEMP 36.9; O2SAT 100
[2024-10-28] MEDS: 0.9% Saline Lock 10 ML Syringe IV ×3 (00:51→21:57)
[2024-10-28 04:29] VITALS: BMI 23.9
[2024-10-28 04:36] VITALS: BP 138/79; PULSE 65; RESP 17; TEMP 36.9; O2SAT 100
[2024-10-28 05:54] LABS: Absolute Lymphocyte Count 2.19 X10^3/uL (0.83-4.51); Absolute Neutrophil Count 5.5 X10^3/uL (2.0-7.7); Basophil# 0.04 X10^3/uL; Basophil% 0.5 % (0-1); Eosinophil# 0.16 X10^3/uL; Eosinophils% 1.8 % (0-5); Hematocrit 25.6 % (37-47); Hemoglobin 8.6 g/dL (12.0-15.0); Lymphocyte # 2.19 X10^3/ul (0.83-4.51); Lymphocyte % 25.2 % (19-41); Mean Corp Hgb Conc 33.6 g/dL (32-36); Mean Corpuscular Hgb 29.3 pg (27.0-32.0); Mean Corpuscular Volume 87.1 fL (81-99); NRBC Flagged by Analyzer 1.6 % (0-5); Neutrophil # 5.48 X10^3/uL (2.7-7.7); Platelet Count 114 K/mm3 (150-450); RBC Distribution Width CV 17.1 % (11.6-14.6); RBC Distribution Width SD 53.2 fl (35.1-43.9); Red Blood Count 2.94 M/mm3 (4.2-5.4); White Blood Count 8.7 K/mm3 (4.4-11.0)
[2024-10-28 06:28] LABS: Anion Gap 4 (5-15); BUN 5 mg/dL (7-18); BUN/Creat Ratio 8.8 RATIO (10-20); Calcium,Total 7.9 mg/dL (8.5-10.1); Chloride 116 mmol/L (98-107); Creatinine, Serum 0.56 mg/dL (0.55-1.02); EST Glomerular Filtration Rate 115 mL/min (>60); Est Glom Filt Rate - Afr Amer 139 mL/min (>60); Estimated Creatinine Clearance 89.95 ml/min; Glucose 100 mg/dL (74-106); Potassium 3.7 mmol/L (3.5-5.1); Sodium Level 145 mmol/L (136-145)
[2024-10-28 08:00] VITALS: BP 137/77; PULSE 72; RESP 17; TEMP 36.9; O2SAT 98
[2024-10-28 08:10] VITALS: O2SAT 96
--- NOTE | 2024-10-28 08:15 | PN.HOSP_ITS ---
Reason for Visit Reason for Visit: Diagnoses Acute posthemorrhagic anemia (10/26/24) Alcohol abuse, uncomplicated (10/26/24) Other secondary scoliosis, lumbar region (10/26/24) Subjective Subjective Patient seen H&H remained stable patient however complains of diarrhea Objective Data Objective Data Vital Signs: Vital Signs Temp Pulse Resp BP Pulse Ox O2 Del Method O2 Flow Rate 98.5 F 65 17 138/79 H 100 Room Air 2 10/28/24 04:36 10/28/24 04:36 10/28/24 04:36 10/28/24 04:36 10/28/24 04:36 10/28/24 04:36 10/27/24 03:00 Oxygen Flow Rate (L/min) 2 Oxygen Delivery Method Room Air Weight: 63.6 kg Body Mass Index (BMI) 23.9 Intake & Output: Intake and Output for Last 24 Hours 10/26/24 10/27/24 10/28/24 23:59 23:59 23:59 Intake Total 3497.33 / 3497.33 4585.2433 / 4585.2433 1750 / 1750 Output Total 400 / 400 950 / 950 500 / 500 Balance 3097.33 / 3097.33 3635.2433 / 3635.2433 1250 / 1250 Lab / Micro Data 10/28/24 04:06 10/28/24 04:06 Labs: Laboratory Results - last 24 hr 10/26/24 06:44: Crossmatch See Detail 10/26/24 06:44: Crossmatch See Detail 10/28/24 04:06: WBC 8.7, RBC 2.94 L, Hgb 8.6 L, Hct 25.6 L, MCV 87.1, MCH 29.3, MCHC 33.6, RDW Std Deviation 53.2 H, RDW Coeff of Otilia 17.1 H, Plt Count 114 L, MPV 11.0, Immature Gran % (Auto) 1.500 H, Neut % (Auto) 63.0, Lymph % (Auto) 25.2, [place] % (Auto) 8.0, Eos % (Auto) 1.8, Baso % (Auto) 0.5, Absolute Neuts (auto) 5.5, Absolute Lymphs (auto) 2.19, Nucleated RBC % 1.6, Sodium 145, Potassium 3.7, Chloride 116 H, Carbon Dioxide 25.0, Anion Gap 4 L, BUN 5 L, Creatinine 0.56, Estim Creat Clear Calc 89.95, Est GFR (MDRD) Af Amer 139, Est GFR (MDRD) Non-Af 115, BUN/Creatinine Ratio 8.8 L, Glucose 100, Calcium 7.9 L Micro: Microbiology 10/26/24 06:55 Stool Stool Occult Blood (JERRY) - Final Physical Exam Narrative GENERAL: cooperative HEENT: Atraumatic; normocephalic EYES; Anicteric, Normal Conjunctiva NECK; supple, normal thyroid, RESPIRATORY: Diminished to auscultation CARDIOVASCULAR: Regular S1 S2, GI: soft, normoactive bowel sounds, : No Renal angle tenderness; EXTREMITIES: No edema, no clubbing, MUSCULOSKELETAL: no muscle wasting NEURO: Awake; no lateralizing signs. SKIN: No Rash PSYCH; Flat affect Assessment & Plan Assessment/Plan (1) Alcohol abuse: (2) Acute blood loss anemia: (3) Lumbar scoliosis: QUALIFIERS: Scoliosis type: other secondary scoliosis Qualified Code(s): M41.56 - Other secondary scoliosis, lumbar region PLAN: Plan Patient is a 63-year-old lady presented with progressive generalized weakness found to have hemoglobin of 3.3 1. Acute upper gastrointestinal bleeding ? Suspected to be secondary to gastritis versus peptic ulcer disease patient reports heavy use of alcohol as well as vddx-uac-ormxlxq NSAIDs. Patient was started on Protonix drip octreotide antibiotic therapy with ceftriaxone admitted to the intensive care unit consultation placed to GI Dr. Friend was notified from the ED prior to patient being admitted 10/27/2024 ;Underwent EGD Impressions : - Nida-Cabrera tear. Treated with argon plasma coagulation (APC). - No gross lesions in the entire stomach. - Spurting duodenal ulcer with a visible vessel. Treatment not successful. Treated with a heater probe. Treated with argon plasma coagulation (APC). Clips were placed. 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 - No specimens collected. 2. Acute blood loss anemia ? Secondary to above patient was typed and crossmatched and order was given for patient to be transfused with 2 unit PRBC - 10/27/2024; transfused 2 additional units ? 10/28/2023; patient has been transfused total of 4 unit PRBC since admission hemoglobin as of this a.m. is 8.6 3. Chronic alcohol dependence ? Patient was found to be tremulous in the ED started patient on alcohol CIWA withdrawal protocol with phenobarb taper 4. Diarrhea send stool for enteric pathogen as well as C. difficile patient placed in enteric precautions pending results of stool studies 5. Chronic back pain ? Patient was taking zxxs-nxy-rlemddk NSAIDs for pain relief. Cessation advised. Patient was placed on acute pain management protocol 6. Tobacco dependence ? Counseled on cessation, offered nicotine patch for tobacco cravings 7. DVT prophylaxis ? Bilateral SCDs, chemoprophylaxis contraindicated in view of patient presentation Time spent in the patient's overall evaluation,decision-making process, review of diagnostic data, adjustment of management, discussion with other providers, nursing nursing and ancillary staff involved in patient's care documentation, 36 minutes Charges/Coding Visit Charges Inpatient E&M: 43592 Subs Hosp L2
[2024-10-28] MEDS: Thiamine Hydrochloride 100 MG Tablet PO (08:31)
[2024-10-28] MEDS: Na Biphos/Potassium Phosphate PACKET 1 PACKET PO ×2 (08:31→21:58)
[2024-10-28] MEDS: Pantoprazole Sodium 40 MG Tablet PO ×2 (08:32→21:58)
[2024-10-28] MEDS: Timolol 0.5% 5ML OPTH.BTL 1 DRP OPHTHALMIC ×2 (08:32→21:58)
[2024-10-28] MEDS: Folic Acid 1 MG Tablet PO (08:32)
[2024-10-28] MEDS: Ceftriaxone 1 GM/50 ML BAG IV (10:29)
[2024-10-28 12:57] VITALS: BP 130/77; PULSE 90; RESP 16; TEMP 36.7; O2SAT 98
[2024-10-28 19:54] VITALS: BP 106/67; PULSE 76; RESP 16; TEMP 37; O2SAT 97
[2024-10-29 01:58] VITALS: BP 102/89; PULSE 74; RESP 15; TEMP 36.8; O2SAT 97
[2024-10-29] MEDS: Phenobarbital 32.4 MG Tablet 64.8 MG PO ×2 (02:05→08:52)
[2024-10-29 05:27] VITALS: BMI 23.8
[2024-10-29 06:22] VITALS: BP 135/85; PULSE 78; RESP 16; TEMP 36.8; O2SAT 99
[2024-10-29 06:28] LABS: Absolute Lymphocyte Count 1.79 X10^3/uL (0.83-4.51); Basophil# 0.03 X10^3/uL; Basophil% 0.5 % (0-1); Eosinophil# 0.21 X10^3/uL; Eosinophils% 3.2 % (0-5); Hematocrit 25.7 % (37-47); Hemoglobin 8.4 g/dL (12.0-15.0); Lymphocyte # 1.79 X10^3/ul (0.83-4.51); Lymphocyte % 27.3 % (19-41); Mean Corp Hgb Conc 32.7 g/dL (32-36); Mean Corpuscular Hgb 28.8 pg (27.0-32.0); Mean Platelet Vol. 11.2 fl (6.2-12.0); Monocyte# 0.49 X10^3/uL; Monocyte% 7.5 % (0-10); NRBC Flagged by Analyzer 0.3 % (0-5); Neutrophil # 3.98 X10^3/uL (2.7-7.7); Neutrophil % 60.6 % (47-70); Platelet Count 150 K/mm3 (150-450); RBC Distribution Width CV 17.1 % (11.6-14.6); Red Blood Count 2.92 M/mm3 (4.2-5.4); White Blood Count 6.6 K/mm3 (4.4-11.0)
[2024-10-29 07:00] LABS: Anion Gap 4 (5-15); BUN 5 mg/dL (7-18); BUN/Creat Ratio 8.7 RATIO (10-20); Calcium,Total 7.9 mg/dL (8.5-10.1); Chloride 113 mmol/L (98-107); Creatinine, Serum 0.58 mg/dL (0.55-1.02); EST Glomerular Filtration Rate 113 mL/min (>60); Est Glom Filt Rate - Afr Amer 136 mL/min (>60); Estimated Creatinine Clearance 85.73 ml/min; Glucose 86 mg/dL (74-106); Potassium 3.5 mmol/L (3.5-5.1); Sodium Level 142 mmol/L (136-145)
[2024-10-29 08:50] VITALS: BP 114/71; PULSE 89; RESP 16; TEMP 36.8; O2SAT 100
[2024-10-29] MEDS: Thiamine Hydrochloride 100 MG Tablet PO (08:52)
[2024-10-29] MEDS: Pantoprazole Sodium 40 MG Tablet PO (08:52)
[2024-10-29] MEDS: Folic Acid 1 MG Tablet PO (08:52)
[2024-10-29] MEDS: Na Biphos/Potassium Phosphate PACKET 1 PACKET PO (08:52)
[2024-10-29] MEDS: Ceftriaxone 1 GM/50 ML BAG IV (08:52)
[2024-10-29] MEDS: 0.9% Saline Lock 10 ML Syringe IV (08:53)
[2024-10-29] MEDS: Timolol 0.5% 5ML OPTH.BTL 1 DRP OPHTHALMIC (08:53)
[2024-10-29 09:41] LABS: Pathologist Review Reviewed
--- NOTE | 2024-10-29 11:12 | PCM.DC ---
Discharge Instructions Diet Discharge Diet: Light diet - advance as tolerated and Soft diet DC O2, CPAP, BIPAP needs Home O2 Discharge instructions: No Dressing / Incision Discharge Activity: Return to Normal Activity Weight Bearing Status: Weight bearing as tolerated Dressing / Incision Call your doctor if you observe: Fever of 101 or Higher, Coldness, Increased Pain, Numbness or Tingling, Change in Color, Inability to urinate, Inability to have a bowel movement, Using more than 1 pad per hour, Shortness of breath, Dizziness, Fainting spells, Swelling in the ankles, Chest pain, Prolonged hiccupping, Increased palpitations (irregular heartbeat) and Calf discomfort Follow Up Care When: IN 2 WEEKS Test Results: Test results from this visit will be discussed in further detail at your follow-up appointment, if applicable. Discharge Plan Admission Admit Date/Time: 10/26/24 09:14 Primary Reason for Your Visit: Severe anemia, upper GI bleed, alcohol dependence Attending Provider: Yusuf Glaser Primary Care Provider: Shlomo Beasley Consulting Providers: Jose Antonio Jack Discharge Orders/Prescriptions Prescriptions: New potassium, sodium phosphates 280-160-250 mg Powder In Packet 1 packet PO BID 3 Days Qty: 6 0RF thiamine HCl (vitamin B1) 100 mg Tablet 100 mg PO DAILYCM 30 Days Qty: 30 2RF pantoprazole 40 mg Tablet,Delayed Release (Dr/Ec) 40 mg PO BID 30 Days Qty: 60 2RF nicotine 21 mg/24 hr Patch 24 Hour 21 mg transdermal DAILY Qty: 28 0RF folic acid 1 mg Tablet 1 mg PO DAILY@0800 30 Days Qty: 30 4RF Continued timolol maleate 0.5 % drops 1 drp ophthalmic (eye) BID Referrals / Follow Up: Shlomo Beasley DO [Primary Care Provider] - Jt Walker DO [Med Staff - Active Staff] - Within 2 Weeks (Follow-up in GI office with PA/[employer]) Disposition Disposition (needs filled in before D/C Order can be placed): Home, Self Care
--- NOTE | 2024-10-29 12:18 | PCM.DC.SUM ---
Providers Date of Admission: 10/26/24 Date of Discharge: 10/29/24 Primary Care Physician: Dr. Shlomo Beasley, DO Consultations 10/26/24 11:45 Consult: Gastroenterology Routine Consulting Provider: [facility] Reason for Consult: GI bleed EMERGENT Consult: Yes MD Notified: Yes Date Notified: 10/26/24 Time Notified: 09:18 Method of Notification: ED Physician Initiated Reason For Visit: GI BLEED Diagnosis Discharge Diagnosis (1) Alcohol abuse: Status: Acute Code(s): F10.10 - Alcohol abuse, uncomplicated (2) Acute blood loss anemia: Status: Acute Code(s): D62 - Acute posthemorrhagic anemia (3) Lumbar scoliosis: Status: Acute Code(s): M41.9 - Scoliosis, unspecified Qualifiers: Scoliosis type: other secondary scoliosis Qualified Code(s): M41.56 - Other secondary scoliosis, lumbar region Plan Patient is a 63-year-old lady presented with progressive generalized weakness found to have hemoglobin of 3.3 with black tarry stool prior to admission. She also had 5-10 episodes of loose pulm/diarrhea, spontaneously resolved, did not had BM for last 3 days. 1. Acute upper gastrointestinal bleeding She was admitted in the ICU. ? Suspected to be secondary to gastritis versus peptic ulcer disease patient reports heavy use of alcohol as well as eznk-tly-lsgjzzu NSAIDs. Patient was started on Protonix drip octreotide antibiotic therapy with ceftriaxone admitted to the intensive care unit consultation placed to GI DrHannah Friend was notified from the ED prior to patient being admitted 10/27/2024 ;Underwent EGD Impressions : - Nida-Cabrera tear. Treated with argon plasma coagulation (APC). - No gross lesions in the entire stomach. - Spurting duodenal ulcer with a visible vessel. Treatment not successful. Treated with a heater probe. Treated with argon plasma coagulation (APC). Clips were placed. 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 - No specimens collected. 10/29: H&H 8.4/25.7%. Platelet count 150,000, improved from 96K. Patient discharged on pantoprazole 40 mg twice daily. Advised to follow-up with GI office in 2 weeks. Advised not to take NSAIDs. 2. Acute blood loss anemia ? Secondary to above patient was typed and crossmatched and order was given for patient to be transfused with 2 unit PRBC - 10/27/2024; transfused 2 additional units ? 10/28/2023; patient has been transfused total of 4 unit PRBC since admission hemoglobin as of this a.m. is 8.6 10/29: Discharged on ferrous sulfate and ascorbic acid. 3. Chronic alcohol dependence ? Patient was found to be tremulous in the ED started patient on alcohol CIWA withdrawal protocol with phenobarb taper 10/29: Withdrawal symptoms are well-controlled. Discharged on thiamine and folic acid. Mild hypophosphatemia and hypokalemia: Treated with Neutra-Phos and prescription given for the same. 4. Diarrhea send stool for enteric pathogen as well as C. difficile patient placed in enteric precautions pending results of stool studies 5. Chronic back pain ? Patient was taking yvap-mhf-obobprd NSAIDs for pain relief. Cessation advised. Patient was placed on acute pain management protocol 6. Tobacco dependence ? Counseled on cessation, offered nicotine patch for tobacco cravings 10/29: Prescription given for nicotine patch. 7. DVT prophylaxis ? Bilateral SCDs, chemoprophylaxis contraindicated in view of patient presentation Discharge medication reconciliation done. Discharge follow-up instructions completed. Discharge process discussed with the patient and all questions were answered to patient's satisfaction. Follow with PCP in 1 to 2 weeks Total time spent, exact 35 minutes on discharge meds reconciliation, examination, coordination of care with nurses and ancillary staff, review of imaging and blood test and discussion with the patient on follow-up instructions. Medications at Discharge Home Medications timolol maleate 0.5 % eye drops 1 drp ophthalmic (eye) BID glaucoma 10/26/24 ascorbic acid (vitamin C) 500 mg tablet 500 mg PO BID #60 tabs 10/29/24 ferrous sulfate 325 mg (65 mg iron) tablet (FeroSul) 325 mg PO DAILY 30 days #30 tabs 10/29/24 folic acid 1 mg tablet 1 mg PO DAILY@0800 30 days #30 tabs 10/29/24 nicotine 21 mg/24 hr daily transdermal patch 21 mg transdermal DAILY #28 ea 10/29/24 pantoprazole 40 mg tablet,delayed release 40 mg PO BID 30 days #60 tabs 10/29/24 potassium, sodium phosphates 280 mg-160 mg-250 mg oral powder packet 1 packet PO BID 3 days #6 ea 10/29/24 thiamine HCl (vitamin B1) 100 mg tablet 100 mg PO DAILYCM 30 days #30 tabs 10/29/24 Physical Exam Narrative Patient has history of chronic alcohol use and dependence. She was also taking NSAID. Admitted with upper GI bleed and severe anemia. Had 4 units of PRBC transfusion. Had diarrhea but did not had bowel movement for 3 days Physical exam General: Alert, Oriented x3, Cooperative HEENT: Pale conjunctiva. Atraumatic, PERRLA, EOMI, Normocephalic Oral: No Gingival or Mucosal Lesions/ Ulcerations Neck: Supple, No JVD, Negative Carotid Bruits Chest wall/Lungs: Air entry diminished in bilateral lung bases. No crepitation/rhonchi Cardiovascular: Regular rate, Regular Rhythm, Normal S1, Normal S2, No M/G/R Abdomen: Bowel Sounds Present, Soft, Non Tender, Non-Distended : No dysuria. No renal angle tenderness. No suprapubic tenderness. Extremities: No edema, Capillary Refill Less than 3 Seconds Skin: No rashes, No breakdown Musculoskeletal: No Tenderness to Palpation of Joints or Extremities Neurological: Cranial nerves II-XII grossly intact, DTR 2+/4. No acute focal neurological deficit. Psych/Mental Status: Flat affect. Weight / BMI Weight Weight: 139 lb 8.842 oz Body Mass Index (BMI) 23.8 ABG / Lab / Microbiology Data 10/29/24 05:40 10/29/24 05:40 Laboratory: Laboratory Results - last 24 hr 10/26/24 06:23: Diff Path Review Reviewed 10/26/24 06:44: Crossmatch See Detail 10/29/24 05:40: WBC 6.6, RBC 2.92 L, Hgb 8.4 L, Hct 25.7 L, MCV 88.0, MCH 28.8, MCHC 32.7, RDW Std Deviation 51.0 H, RDW Coeff of Otilia 17.1 H, Plt Count 150, MPV 11.2, Immature Gran % (Auto) 0.900, Neut % (Auto) 60.6, Lymph % (Auto) 27.3, [place] % (Auto) 7.5, Eos % (Auto) 3.2, Baso % (Auto) 0.5, Absolute Neuts (auto) 4.0, Absolute Lymphs (auto) 1.79, Nucleated RBC % 0.3, Sodium 142, Potassium 3.5, Chloride 113 H, Carbon Dioxide 26.0, Anion Gap 4 L, BUN 5 L, Creatinine 0.58, Estim Creat Clear Calc 85.73, Est GFR (MDRD) Af Amer 136, Est GFR (MDRD) Non-Af 113, BUN/Creatinine Ratio 8.7 L, Glucose 86, Calcium 7.9 L Microbiology: Microbiology 10/26/24 06:55 Stool Stool Occult Blood (JERRY) - Final D/C Instructions Discharge Diet: Light diet - advance as tolerated and Soft diet Weight Bearing Status: Weight bearing as tolerated Call your doctor if you observe: Fever of 101 or Higher, Coldness, Increased Pain, Numbness or Tingling, Change in Color, Inability to urinate, Inability to have a bowel movement, Using more than 1 pad per hour, Shortness of breath, Dizziness, Fainting spells, Swelling in the ankles, Chest pain, Prolonged hiccupping, Increased palpitations (irregular heartbeat) and Calf discomfort DC O2, CPAP, BIPAP Needs Home O2 Discharge instructions: No When: IN 2 WEEKS Meaningful Use Info Meaningful Use Meaningful Use Diagnoses (Choose all that apply): None applicable Ischemic Stroke Statin Dosing Therapy Reference: STATIN DOSE THERAPY REFERENCE: * Patients > 75 years receive moderate or high dose statin therapy. * Patients 75 years or YOUNGER should receive HIGH intensity statin dose unless contraindicated. You will be required to document reason for non-treatment if statin daily dose does not meet guidelines. HIGH DOSE STATIN THERAPY DAILY Atorvastatin > than or = to 40 mg Rosuvastatin > than or = to 20 mg Amlodipine + Atorvastatin > than or = to 2.5/40 mg Ezetimibe + Simvastatin 10/80 mg Simvastatin 80mg Discharge Plan Admission Admit Date/Time: 10/26/24 09:14 Primary Reason for Your Visit: Severe anemia, upper GI bleed, alcohol dependence Attending Provider: Yusuf Glaser Primary Care Provider: Shlomo Beasley Consulting Providers: Jose Antonio Jack Discharge Orders/Prescriptions Prescriptions: New potassium, sodium phosphates 280-160-250 mg Powder In Packet 1 packet PO BID 3 Days Qty: 6 0RF thiamine HCl (vitamin B1) 100 mg Tablet 100 mg PO DAILYCM 30 Days Qty: 30 2RF pantoprazole 40 mg Tablet,Delayed Release (Dr/Ec) 40 mg PO BID 30 Days Qty: 60 2RF nicotine 21 mg/24 hr Patch 24 Hour 21 mg transdermal DAILY Qty: 28 0RF folic acid 1 mg Tablet 1 mg PO DAILY@0800 30 Days Qty: 30 4RF ferrous sulfate [FeroSul] 325 mg (65 mg iron) tablet 325 mg PO DAILY 30 Days Qty: 30 2RF ascorbic acid (vitamin C) 500 mg tablet 500 mg PO BID Qty: 60 2RF Continued timolol maleate 0.5 % drops 1 drp ophthalmic (eye) BID Referrals / Follow Up: Shlomo Beasley DO [Primary Care Provider] - FriendJt DO [Med Staff - Active Staff] - Within 2 Weeks (Follow-up in GI office with PA/NETWORK LEAD) Disposition Disposition (needs filled in before D/C Order can be placed): Home, Self Care Charges/Coding Visit Charges Inpatient E&M: 13669 Disch Hosp >30min
--- NOTE | 2024-10-29 12:25 | CASEMGMT ---
Addendum entered by Erin Melissa 10/31/24 14:25: SW also provided printed [employer] and [employer] resources in addition to [employer] and [employer]. DUANE Tavera Original Note: Social Work- SW met with pt to discuss self pay status. SW introduced self and role. Pt reports that she should have anthem coverage, as she has worked at her job at [employer] for 100+ days. Pt given [employer] and [employer] information. Pt reports no other needs for resources at this time. SW spoke with [employer], Joan, who reports that she is looking into pt coverage. No other SW needs noted. DUANE Tavera
[2024-10-29 13:10] VITALS: BP 130/77; PULSE 86; RESP 16; TEMP 36.8; O2SAT 100
--- NOTE | 2024-10-29 13:25 | PHA.DC_ITS ---
Pharmacy [place] [facility] has performed discharge medication reconciliation for this patient. Enteric precautions, did not drug abuse counselor. Medications reviewed. The patient's discharge medication list was reviewed for discrepancies and discrepancies were resolved. Medications at Discharge Home Medications timolol maleate 0.5 % eye drops 1 drp ophthalmic (eye) BID glaucoma 10/26/24 ascorbic acid (vitamin C) 500 mg tablet 500 mg PO BID #60 tabs 10/29/24 ferrous sulfate 325 mg (65 mg iron) tablet (FeroSul) 325 mg PO DAILY 30 days #30 tabs 10/29/24 folic acid 1 mg tablet 1 mg PO DAILY@0800 30 days #30 tabs 10/29/24 nicotine 21 mg/24 hr daily transdermal patch 21 mg transdermal DAILY #28 ea 10/29/24 pantoprazole 40 mg tablet,delayed release 40 mg PO BID 30 days #60 tabs 10/29/24 potassium, sodium phosphates 280 mg-160 mg-250 mg oral powder packet 1 packet PO BID 3 days #6 ea 10/29/24 thiamine HCl (vitamin B1) 100 mg tablet 100 mg PO DAILYCM 30 days #30 tabs 10/29/24
--- NOTE | 2024-10-29 13:33 | PHA.DC_ITS ---
Pharmacy [facility] has performed discharge medication reconciliation and counseling for this patient. Patient counseled via telephone due to enteric precautions. 1. ASCORBIC ACID 500MG PO BID 2. FERROUS SULFATE 325MG PO DAILY 3. FOLIC ACID 1MG PO DAILYCM 4. NICOTINE PATCH 21MG TOPICAL DAILY 5. NEURTA-PHOS 1 PACKET PO BID X 3 DAYS 6. PANTOPRAZOLE 40MG PO BID 7. THIAMINE 100MG PO DAILYCM The patient's discharge medication list was reviewed for discrepancies and discrepancies were resolved. The patient was counseled on the following discharge medications and changes in medications for homegoing were reviewed. The Reason for Use, instructions for use, and potential side effects were reviewed for all new medications. The patient's questions regarding all of their medications were answered. The patient was able to verbally demonstrate an understanding of their discharge medications. Medications at Discharge Home Medications timolol maleate 0.5 % eye drops 1 drp ophthalmic (eye) BID glaucoma 10/26/24 ascorbic acid (vitamin C) 500 mg tablet 500 mg PO BID #60 tabs 10/29/24 ferrous sulfate 325 mg (65 mg iron) tablet (FeroSul) 325 mg PO DAILY 30 days #30 tabs 10/29/24 folic acid 1 mg tablet 1 mg PO DAILY@0800 30 days #30 tabs 10/29/24 nicotine 21 mg/24 hr daily transdermal patch 21 mg transdermal DAILY #28 ea 10/29/24 pantoprazole 40 mg tablet,delayed release 40 mg PO BID 30 days #60 tabs 10/29/24 potassium, sodium phosphates 280 mg-160 mg-250 mg oral powder packet 1 packet PO BID 3 days #6 ea 10/29/24 thiamine HCl (vitamin B1) 100 mg tablet 100 mg PO DAILYCM 30 days #30 tabs 10/29/24
--- NOTE | 2024-10-29 14:51 | CHAPLAIN ---
Type of Pastoral Visit ___ Initial Visit ___ Follow-up Visit ___ On-call Visit ___ General Patient Visit ___ Spiritual Assessment ___ Family Conference ___ Bereavement ___ Rapid Response ___ Code Blue ___ Other (describe below) Pastoral Care Referral From ___ Patient ___ Family ___ Nurse ___ Physician ___ [place] Operator ___ Gear Lapper ___ Other (describe below) Sacrament/Intervention ___ Active listening ___ Anointing ___ Bahai ___ Bereavement ___ Communion ___ Claudia exploration ___ ___ Life review ___ Prayer ___ Reconciliation ___ Sacrament of Sick ___ Supportive presence ___ Wedding ___ Other (describe below) Pastoral Comments at time of attempted visit the patient was being discharged
== END 2024-10-29 14:25 | disposition home or self-care (01) | DRG 378 ==
LOC: ED 07:01 → ICU 10:34 → MS3 10-27 17:39
PROVIDERS: Internal Medicine Gastroenterology; Admitting Provider Internal Medicine; Emergency Provider Emergency Medicine; PCP Family Medicine; Visit Provider Internal Medicine
PROC: 0DJ08ZZ Inspection of Upper Intestinal Tract, Via Natural or Artificial Opening Endoscopic (ICD-10-PCS; CPT 43235; principal; 2024-10-26 15:10)
DX: K26.0 Acute duodenal ulcer with hemorrhage (principal); D62 Acute posthemorrhagic anemia; F10.239 Alcohol dependence with withdrawal, unspecified; E83.39 Other disorders of phosphorus metabolism; M41.56 Other secondary scoliosis, lumbar region; E87.6 Hypokalemia; F17.210 Nicotine dependence, cigarettes, uncomplicated; K29.70 Gastritis, unspecified, without bleeding; K22.6 Gastro-esophageal laceration-hemorrhage syndrome; Y90.0 Blood alcohol level of less than 20 mg/100 ml
CPT/HCPCS: 36415; 71045; 74174; 80048; 80076; 82077; 82274; 83605; 83690; 83735; 84100; 85014; 85018; 85025; 85610; 85730; 86850; 86900; 86901; 93005; 97802; 99285; P9016; Q9967; A4216; J0696; J2354

== ENCOUNTER → 2024-11-07 | Outpatient (CLI) | payer BC, SELFPAY ==
[2024-11-07 16:15] LABS: Absolute Lymphocyte Count 1.71 X10^3/uL (0.83-4.51); Absolute Neutrophil Count 3.6 X10^3/uL (2.0-7.7); Basophil# 0.07 X10^3/uL; Basophil% 1.2 % (0-1); Eosinophil# 0.09 X10^3/uL; Eosinophils% 1.5 % (0-5); Hematocrit 31.3 % (37-47); Hemoglobin 10.1 g/dL (12.0-15.0); Lymphocyte # 1.71 X10^3/ul (0.83-4.51); Lymphocyte % 28.5 % (19-41); Mean Corp Hgb Conc 32.3 g/dL (32-36); Mean Corpuscular Volume 89.9 fL (81-99); Mean Platelet Vol. 9.7 fl (6.2-12.0); Monocyte% 8.3 % (0-10); NRBC Flagged by Analyzer 0 % (0-5); Neutrophil # 3.61 X10^3/uL (2.7-7.7); Platelet Count 399 K/mm3 (150-450); RBC Distribution Width CV 15.4 % (11.6-14.6); RBC Distribution Width SD 50.4 fl (35.1-43.9); Red Blood Count 3.48 M/mm3 (4.2-5.4)
== END | disposition home or self-care (01) ==
LOC: LAB 15:27
PROVIDERS: PCP Family Medicine; Referring Provider Student in an Organized Health Care Education/Training Program; Visit Provider Student in an Organized Health Care Education/Training Program
DX: K26.9 Duodenal ulcer, unspecified as acute or chronic, without hemorrhage or perforation (principal)
CPT/HCPCS: 36415; 85025

== ENCOUNTER → 2025-01-08 | Outpatient (CLI) | payer BC, SELFPAY ==
[2025-01-08 16:45] LABS: Absolute Lymphocyte Count 2.25 X10^3/uL (0.83-4.51); Absolute Neutrophil Count 3.5 X10^3/uL (2.0-7.7); Basophil# 0.05 X10^3/uL; Basophil% 0.8 % (0-1); Eosinophils% 1.6 % (0-5); Hemoglobin 11.9 g/dL (12.0-15.0); Lymphocyte # 2.25 X10^3/ul (0.83-4.51); Lymphocyte % 35.5 % (19-41); Mean Corp Hgb Conc 33.1 g/dL (32-36); Mean Corpuscular Hgb 29.7 pg (27.0-32.0); Mean Corpuscular Volume 89.8 fL (81-99); Mean Platelet Vol. 10.3 fl (6.2-12.0); Monocyte# 0.44 X10^3/uL; Monocyte% 6.9 % (0-10); NRBC Flagged by Analyzer 0 % (0-5); Neutrophil # 3.49 X10^3/uL (2.7-7.7); Platelet Count 237 K/mm3 (150-450); RBC Distribution Width CV 12.8 % (11.6-14.6); RBC Distribution Width SD 42.2 fl (35.1-43.9); Red Blood Count 4.01 M/mm3 (4.2-5.4); White Blood Count 6.3 K/mm3 (4.4-11.0)
[2025-01-08 23:58] LABS: Iron 52 ug/dL (50-170)
== END | disposition home or self-care (01) ==
LOC: BIMLAB 16:12
PROVIDERS: PCP Family Medicine; Referring Provider Family Medicine; Visit Provider Family Medicine
DX: K26.9 Duodenal ulcer, unspecified as acute or chronic, without hemorrhage or perforation (principal)
CPT/HCPCS: 36415; 83540; 85025

== ENCOUNTER → 2025-02-07 | Outpatient (CLI) | payer BC, SELFPAY ==
[2025-02-07 15:57] LABS: Absolute Lymphocyte Count 2.01 X10^3/uL (0.83-4.51); Absolute Neutrophil Count 3.5 X10^3/uL (2.0-7.7); Basophil# 0.06 X10^3/uL; Eosinophil# 0.14 X10^3/uL; Eosinophils% 2.3 % (0-5); Hematocrit 36.3 % (37-47); Hemoglobin 11.8 g/dL (12.0-15.0); Lymphocyte # 2.01 X10^3/ul (0.83-4.51); Lymphocyte % 32.5 % (19-41); Mean Corp Hgb Conc 32.5 g/dL (32-36); Mean Corpuscular Volume 89.2 fL (81-99); Mean Platelet Vol. 10.4 fl (6.2-12.0); Monocyte# 0.43 X10^3/uL; NRBC Flagged by Analyzer 0 % (0-5); Neutrophil # 3.52 X10^3/uL (2.7-7.7); Neutrophil % 56.9 % (47-70); Platelet Count 240 K/mm3 (150-450); RBC Distribution Width CV 12.6 % (11.6-14.6); RBC Distribution Width SD 41.2 fl (35.1-43.9); Red Blood Count 4.07 M/mm3 (4.2-5.4); White Blood Count 6.2 K/mm3 (4.4-11.0)
[2025-02-07 16:28] LABS: AST(SGOT) 16 U/L (<=31); Alanine Aminotransfer ALT/SGPT 10 U/L (<=34); Albumin, Serum 4.3 g/dL (3.4-4.8); Alkaline Phosphatase 98 U/L (35-104); Anion Gap 10 (5-15); BUN 12 mg/dL (4-19); BUN/Creat Ratio 15.5 RATIO (10-20); Carbon Dioxide 25.3 mmol/L (21.0-32.0); Chloride 106 mmol/L (98-108); Creatinine, Serum 0.79 mg/dL (0.70-1.20); EST Glomerular Filtration Rate 84 (>60); Globulin 2.2 g/dL (2.2-4.2); Glucose 88 mg/dL (70-99); Protein, Total 6.5 g/dL (5.9-8.4); Sodium Level 141 mmol/L (133-145); Total Bilirubin 0.23 mg/dL (0.00-1.30)
== END | disposition home or self-care (01) ==
LOC: LAB 15:23
PROVIDERS: PCP Family Medicine; Referring Provider Student in an Organized Health Care Education/Training Program; Visit Provider Student in an Organized Health Care Education/Training Program
DX: D64.9 Anemia, unspecified (principal); K26.9 Duodenal ulcer, unspecified as acute or chronic, without hemorrhage or perforation; F10.10 Alcohol abuse, uncomplicated
CPT/HCPCS: 36415; 80053; 85025

== ENCOUNTER → 2025-05-09 | Outpatient (CLI) | payer BC, SELFPAY ==
[2025-05-09 16:12] LABS: Hematocrit 35.8 % (37-47); Hemoglobin 11.7 g/dL (12.0-15.0); Immature Granulocytes Count 0.020 X10^3/uL (0.0-0.0); Mean Corp Hgb Conc 32.7 g/dL (32-36); Mean Corpuscular Volume 92.5 fL (81-99); Mean Platelet Vol. 10.2 fl (6.2-12.0); NRBC Flagged by Analyzer 0 % (0-5); Platelet Count 199 K/mm3 (150-450); RBC Distribution Width CV 12.9 % (11.6-14.6); RBC Distribution Width SD 44.3 fl (35.1-43.9); Red Blood Count 3.87 M/mm3 (4.2-5.4); White Blood Count 5.8 K/mm3 (4.4-11.0)
[2025-05-09 16:45] LABS: AST(SGOT) 18 U/L (<=31); Alanine Aminotransfer ALT/SGPT 22 U/L (<=34); Albumin, Serum 4.1 g/dL (3.4-4.8); Alkaline Phosphatase 111 U/L (35-104); Anion Gap 10 (5-15); BUN 10 mg/dL (4-19); BUN/Creat Ratio 11.7 RATIO (10-20); Calcium,Total 9.9 mg/dL (7.6-11.0); Carbon Dioxide 24.4 mmol/L (21.0-32.0); Chloride 104 mmol/L (98-108); Globulin 2.3 g/dL (2.2-4.2); Glucose 91 mg/dL (70-99); Potassium 4.4 mmol/L (3.3-5.1)
[2025-05-09 16:58] LABS: Prothrombin Time (Protime)PT. 12.6 SECONDS (11.7-14.9)
== END | disposition home or self-care (01) ==
LOC: LAB 15:56
PROVIDERS: PCP Family Medicine; Referring Provider Student in an Organized Health Care Education/Training Program; Visit Provider Student in an Organized Health Care Education/Training Program
DX: K26.9 Duodenal ulcer, unspecified as acute or chronic, without hemorrhage or perforation (principal); F10.10 Alcohol abuse, uncomplicated; D64.9 Anemia, unspecified
CPT/HCPCS: 36415; 80053; 85025; 85610

== ENCOUNTER 2025-05-12 15:06 | Emergency (ER) | payer BC, SELFPAY ==
[2025-05-12 15:06] VITALS: BP 156/100; PULSE 81; RESP 16; TEMP 36.4; O2SAT 99; BMI 20.2
--- OUTSIDE RECORDS SUMMARY | 2025-05-12 15:27 | XMS RPT_ITS | CCD ---
Author Organization [facility] Care Team Providers Care Cw Operator Name Role Phone Mraiela Whatley MD Primary Care Provider Dr. John Carias Chi Primary Care Provider 1([facility])[phone] Jv, Dr. John Kyle Referring Provider 1([facility])[phone] Sylvia ACOSTA PA Jamel Attending Provider 1([facility]) Dr. Jorge L Pineda Attending Provider 1([facility])- 00 Dr. Shlomo Beasley Primary Care Provider 1([facility] ) Dr. Jaime Medina Attending Provider 1([facility])- 10 Sylvia ACOSTA PA Jamel Referring Provider [phone] Dr. Shlomo Beasley Attending Provider Dr. Shlomo Beasley Referring Provider [phone] Dr. John Carias Chi Primary Care Provider 1([facility])[phone] Jv, Dr. John Kyle Referring Provider 1([facility])[phone] Sylvia ACOSTA PA Jamel Attending Provider [phone] Dr. Jorge L Pineda Attending Provider 1([facility])- 00 Dr. Shlomo Beasley Primary Care Provider [phone] Dr. Jaime Medina Attending Provider 1([facility])- 10 Sylvia ACOSTA PA Jamel Referring Provider [phone] Dr. Shlomo Beasley Attending Provider Dr. Shlomo Beasley Referring Provider [phone] Mariela Whatley MD Primary Care Provider Dr. Shlomo Beasley DO Primary Care Provider [phone] Reggie RAMSEY, Dr. Stearns Emergency Provider Guero CRAMER, Dr. Brady Admit Provider Unavailable Guero CRAMER, Dr. Brady Other Provider Unavailable Alfredito CRAMER, Dr. Goldberg Attending Provider Guero CRAMER, Dr. Brady Attending Provider Unavaila ble Aaron RAMSEY, Dr. Waters Attending Provider Alfredito CRAMER, Dr. Goldberg Referring Provider Alfredito CRAMER, Dr. Goldberg Other Provider Ramos RAMSEY, Dr. Shlomo Powell Referring Provider Oumou Sanchez Attending Provider Oumou Sanchez Referring Provider Dr. Shlomo Beasley DO Attending Provider [phone] Ramos RAMSEY, Dr. Shlomo Powell Primary Care Provider [phone] Ramos RAMSEY, Dr. Shlomo Powell Referring Provider Oumou Sanchez Attending Provider Oumou Sanchez Referring Provider Sebastian Lindsay Attending Provider Dr. Shlomo Beasley DO Primary Care Provider [phone] Ramos RAMSEY, Dr. Shlomo Powell Referring Provider Oumou De La Rosa Referring Unavailable Brown, Shlomo R Primary Care Unavailable Oumou De La Rosa Attending Unavailable Jonas Riley Attending Unavailable Brown, Shlomo R Primary Care Unavailable Brown, Shlomo R Referring Unavailable Jonas Riley Attending Unavailable Brown, Shlomo R Primary Care Unavailable Brown, Shlomo R Referring Unavailable Brown, Shlomo R Primary Care Unavailable Brown, Shlomo R Referring Unavailable Oumou De La Rosa Attending Unavailable Brown, Shlomo R Primary Care Unavailable Brown, Shlomo R Referring Unavailable Sebastian Linares Attending Unavailable Brown, Shlomo R Referring Unavailable Oumou De La Rosa Attending Unavailable Brown, Shlomo R Primary Care Unavailable Brown, Shlomo R Primary Care Unavailable Brown, Shlomo R Referring Unavailable Oumou De La Rosa Attending Unavailable Brown, Shlomo R Primary Care Unavailable Jose Antonio Jack Admitting Unavailable Jose Antonio Jack Attending Unavailable Jose Antonio Jack Consulting Unavailable Ramos, Shlomo R Primary Care Unavailable Jose Antonio Jack Attending Unavailable Jt Walker Attending Unavailable Yusuf Glaser Referring Unavailable Yusuf Glaser Attending Unavailable Yusuf Glaser Consulting Unavailable Brown, Shlomo R Attending Unavailable Brown, Shlomo R Primary Care Unavailable Brown, Shlomo R Referring Unavailable Brown, Shlomo R Primary Care Unavailable Oumou De La Rosa Attending Unavailable Oumou De La Rosa Referring Unavailable BasaliAngel Referring Unavailable BasaliAngel Attending Unavailable Brown, Shlomo R Primary Care Unavailable Brown, Shlomo R Primary Care Unavailable Oumou De La Rosa Referring Unavailable Oumou De La Rosa Attending Unavailable Brown, Shlomo R Attending Unavailable Brown, Shlomo R Primary Care Unavailable Brown, Shlomo R Referring Unavailable Brown, Shlomo R Primary Care Unavailable Jose Antonio Jack Admitting Unavailable Jose Antonio Jack Consulting Unavailable Alfredito, Yusuf Attending Unavailable Medications Current Medications Medication Drug Class(es) Dates Sig (Normalized) Sig (Original) pantoprazole 40 mg delayed release oral tablet (6 sources) Proton Pump Inhibitor Start: 2024 End: 05-09-2025 take 1 tablet by mouth twice daily Pantoprazole 40 mg tablet,delayed release (DR/EC) Active 40 mg PO TWICE A DAY 60 30 2 May 09, 2025 3:47pm thiamine 100 mg oral tablet (3 sources) Start: 2024 take 1 tablet by mouth once daily at mealtime Thiamine Hcl (Vitamin B1) 100 mg Tablet Active 100 mg PO DAILY WITH MEALS 30 30 2 2024 1:00am Timolol Maleate (14 sources) beta-Adrenergic Tamera Start: 10-26-2024 Timolol Maleate 0.5 % drops Active 1 NMA OPHTHALMIC TWICE A DAY October 26, 2024 1:00am glaucoma Start: 10-26-2024 Timolol Maleat e 0.5 % drops Active 1 NMA OPHTHALMIC TWICE A DAY October 26, 2024 1:00am Start: 01-24-2021 take 1 drop(s) into the eye(s) once daily Timolol Maleate 0.25 % dpet Use 1 Drop in both eyes once daily. 01/24/2021 Active Start: 01-24-2021 take 1 drop(s) into the eye(s) once daily Timolol Maleate 0.25 % dpet Use 1 Drop in both eyes once daily. 0 01/24/2021 Active Start: 07-26-2013 End: 02-01-2024 Timolol Maleate 1 DROP drops Discontinued 1 NMA Each Eye TWICE A DAY July 26, 2013 12:00am February 01, 2024 9:57am Comment on above: Use 1 Drop in both e yes once daily. Completed/Discontinued Medications Medication Drug Class(es) Dates Sig (Normalized) Sig (Original) ascorbic acid 500 mg oral tablet (3 sources) Vitamin C Start: 2024 End: 05-09-2025 take 1 tablet by mouth twice daily Ascorbic Acid (Vitamin C) 500 mg tablet Discontinued 500 mg PO TWICE A DAY 60 2 2024 1:00am May 09, 2025 3:30pm cetirizine hydrochloride 10 mg oral capsule (1 source) Histamine-1 Receptor Antagonist Start: 04-17-2025 End: 05-09-2025 take 1 capsule by mouth once daily Cetirizine (Zyrtec) 10 mg capsule Discontinued 10 mg PO daily 7 0 April 17, 2025 12:00am May 09, 2025 3:30pm ferrous sulfate 325 mg oral tablet (3 sources) Start: 2024 End: 05-09-2025 take 1 tablet by mouth once daily Ferrous Sulfate (Ferosul) 325 mg (65 mg iron) tablet Discontinued 325 mg PO DAILY 30 30 2 2024 1:00am May 09, 2025 3:30pm folic acid 1 mg oral tablet (3 sources) Start: 2024 End: 05-09-2025 take 1 tablet by mouth once daily Folic Acid 1 mg Tablet Discontinued 1 mg PO DAILY@0800 30 30 2024 1:00am May 09, 2025 3:30pm ibuprofen 200 mg oral tablet (7 sources) Nonsteroidal Anti-inflammatory Drug Start: 12-02-2023 End: 02-01-2024 take 2 tablets by mouth every eight hours as needed Ibuprofen 200 mg tablet Discontinued 400 mg PO Q8H as needed December 02, 2023 1:00am February 01, 2024 9:57am Start: 12-02-2023 End: 02-01-2024 take 400 mg by mouth every eight hours Ibuprofen Discontinued 400 MG PO Q8H December 02, 2023 1:00am February 01, 2024 9:57am 24 hr nicotine 0.875 mg/hr transdermal system (3 sources) Cholinergic Nicotinic Agonist Start: 2024 End: 01-08-2025 apply 1 dose transdermal route every twenty-four hours Nicotine 21 mg/24 hr Patch 24 Hour Discontinued 21 mg TD DAILY 28 2024 1:00am January 08, 2025 3:57pm Potassium, Sodium Phosphates 280-160-250 mg Powder In Packet (3 sources) Start: 2024 End: 01-08-2025 Potassium, Sodium Phosphates 280-160-250 mg Powder In Packet Discontinued 1 NMA PO TWICE A DAY 6 3 2024 1:00am January 08, 2025 3:57pm Start: 2024 End: 01-08-2025 Potassium, Sodium Phosphates 280-160-250 mg Powder In Packet Discontinued 1 NMA PO TWICE A DAY 6 2024 1:00am January 08, 2025 3:57pm predniSONE 20 mg oral tablet (12 sources) Start: 04-17-2025 End: 05-09-2025 take 3 tablets by mouth once daily, then take 2 tablets by mouth once daily, then take 1 tablet by mouth once daily Prednisone 20 mg tablet Discontinued 20 mg PO As Directed 30 April 17, 2025 12:00am May 09, 2025 3:30pm 3 tabs once daily x 5 days then 2 tabs once daily x 5 days then 1 tab once daily x 5 days Start: 02-01-2024 End: 02-16-2024 take 1 tablet by mouth twice daily Prednisone 20 mg tablet Discontinued 20 mg PO TWICE A DAY 10 February 01, 2024 12:00am February 16, 2024 8:04am Start: 11-18-2023 End: 12-02-2023 Prednisone 10 mg tablet Disc ontinued 10 mg PO As Directed 37 November 18, 2023 1:00am December 02, 2023 8:30am see taper instructions: 5 tabs x 3 days, 4 tabs x 3 days, 3 tabs x 2 days, 2 tabs x 2 days, 1 tabs x 2 days Problems Active Problems Problem Classification Problem Date Documented Da te Episodic/Chronic Alcohol-related disorders (11 sources) Alcohol abuse; Translations: [Alcohol abuse, uncomplicated] Onset: 11-02-2024 10-26-2024 Chronic Allergic reactions (2 sources) Contact dermatitis due to poison lasha; Translations: [Allergic contact dermatitis due to plants, except food] 04-17-2025 Episodic Deficiency and other anemia (7 sources) Anemia; Translations: [Anemia, unspecified] 11-07-2024 Episodic Deficiency and other anemia (1 source) Anemia, unspecified; Translations: [Anemia, unspecified] Onset: 05-09-2025 Episodic Gastroduodenal ulcer (except hemorrhage) (14 sources) Ulcer of duodenum; Translations: [Duodenal ulcer, unspecified as acute or chronic, without hemorrhage or perforation] Onset: 08-28-2013 08-28-2013 Chronic Other acquired deformities (4 sources) Scoliosis of lumbar spine; Translations: [Scoliosis, unspecified] 11-06-2024 Chronic Other acquired deformities (1 source) Other secondary scoliosis, lumbar region; Translations: [Other secondary scoliosis, lumbar region] Onset: 11-02-2024 Chronic Other connective tissue disease (7 sources) Trochanteric bursitis; Translations: [Trochanteric bursitis, right hip] 12-02-2023 Episodic Other connective tissue disease (7 sources) Pain in calf; Translations: [Pain in right lower leg] 11-18-2023 Episodic Other connective tissue disease (7 sources) Pain in right lower limb; Translations: [Pain in right leg] 11-18-2023 Episodic Other connective tissue disease (4 sources) Pain in right leg; Translations: [Pain in limb] 11-18-2023 Episodic Other connective tissue disease (10 sources) Trochanteric bursitis, right hip; Translations: [Enthesopathy of hip region] 12-02-2023 Episodic Other gastrointestinal disorders (9 sources) Constipation; Translations: [Constipation, unspecified] Onset: 07-30-2013 07-30-2013 Episodic Other screening for suspected conditions (not mental disorders or infectious disease) (11 sources) Patient encounter status; Translations: [Encounter for screening mammogram for malignant neoplasm of breast] Episodic Other upper respiratory infections (1 source) Sore throat symptom; Translations: [Acute pharyngitis, unspecified] 08-08-2023 Episodic Residual codes; unclassified (6 sources) Poor long-term memory; Translations: [Other amnesia] 12-06-2023 Episodic Residual codes; unclassified (3 sources) Other amnesia; Translations: [Memory loss] 12-06-2023 Episodic Spondylosis; intervertebral disc disorders; other back problems (20 sources) Nerve root disorder; Translations: [Radiculopathy, site unspecified] 11-18-2023 Episodic Substance-related disorders (4 sources) Tobacco user; Translations: [Nicotine dependence, unspecified, uncomplicated] 01-24-2021 Chronic Unclassified (1 source) Follow-up in GI office with PA/NEONATAL DOCTOR Past or Other Problems Problem Classification Problem Date Documented Da te Episodic/Chronic Abdominal pain (4 sources) Abdominal pain; Translations: [Unspecified abdominal pain] Onset: 3 07-30-2013 Episodic Acute posthemorrhagic anemia (5 sources) Acute posthemorrhagic anemia; Translations: [Acute posthemorrhagic anemia] Onset: 5 11-06-2024 Episodic Administrative/social admission (1 source) Encounter for pre-employment examination; Translations: [Encounter for pre-employment examination] Onset: 4 Episodic Biliary tract disease (4 sources) Polyp of gallbladder; Translations: [Cholesterolosis of gallbladder] Onset: 3 08-28-2013 Episodic Gastritis and duodenitis (4 sources) Duodenitis; Translations: [Duodenitis without bleeding] Onset: 3 07-30-2013 Episodic Gastrointestinal hemorrhage (4 sources) Acute gastrointestinal hemorrhage; Translations: [Gastrointestinal hemorrhage, unspecified] Onset: 5 10-26-2024 Episodic Other connective tissue disease (4 sources) Swelling of hand; Translations: [Other specified soft tissue disorders] Onset: 2 08-18-2012 Episodic Other non-traumatic joint disorders (1 source) Pain in right hip; Translations: [Pain in right hip] Onset: 4 Episodic Results Test Name Value Interpretation Reference Range Facility CBC W/Diff, Automatedon 07-2 Absolute Lymph 1.86 X10 3/uL Normal 0.83-4.51 [facility] Comment on above: Performed By: #### L 500.2500, L100.0100 #### [facility] [address] [place], [address] Absolute Neut 3.4 X10 3/uL Normal 2.0-7.7 [facility] Comment on above: Performed By: #### L 500.2500, L100.0100 #### [facility] [address] [place], [address] Basophils/100 WBC (Bld) 0.3 % Normal 0-1 [facility] Comment on above: Performed By: #### L 500.2500, L100.0100 #### [facility] [address] [place], [address] Eosinophils/100 WBC (Bld) 1.9 % Normal 0-5 [facility] Comment on above: Performed By: #### L 500.2500, L100.0100 #### [facility] [address] [place], [address] Erythrocyte distribution width (RBC) [Ratio] 12.9 % Normal 11.6-14.6 [facility] Comment on above: Performed By: #### L 500.2500, L100.0100 #### [facility] [address] [place], [address] Hematocrit (Bld) [Volume fraction] 35.8 % Low 37-47 [facility] Comment on above: Performed By: #### L 500.2500, L100.0100 #### [facility] [address] [place], [address] Hemoglobin (Bld) [Mass/Vol] 11.7 g/dL Low 12.0-15.0 [facility] Comment on above: Performed By: #### L 500.2500, L100.0100 #### [facility] [address] [place], [address] IG% 0.300 Normal 0.0-0.9 [facility] Comment on above: Result Comment: IG% - Immature Granulocytes (promyelocytes, myelocytes and metamyelocytes) > 1% indicates that a LEFT SHIFT is Present. Performed By: #### L 500.2500, L100.0100 #### [facility] [address] [place], [address] Lymphocytes/100 WBC (Bld) 32.1 % Normal 19-41 [facility] Comment on above: Performed By: #### L 500.2500, L100.0100 #### [facility] [address] [place], [address] MCH (RBC) [Entitic mass] 30.2 pg Normal 27.0-32.0 [facility] Comment on above: Performed By: #### L 500.2500, L100.0100 #### [facility] [address] [place], [address] MCHC (RBC) [Mass/Vol] 32.7 g/dL Normal 32-36 [facility] Comment on above: Performed By: #### L 500.2500, L100.0100 #### [facility] [address] [place], [address] MCV (RBC) [Entitic vol] 92.5 fL Normal 81-99 [facility] Comment on above: Performed By: #### L 500.2500, L100.0100 #### [facility] [address] [place], [address] Monocytes/100 WBC (Bld) 7.1 % Normal 0-10 [facility] Comment on above: Performed By: #### L 500.2500, L100.0100 #### [facility] [address] [place], [address] Neutrophils/100 WBC (Bld) 58.3 % Normal 47-70 [facility] Comment on above: Performed By: #### L 500.2500, L100.0100 #### [facility] [address] [place], [address] Nucleated RBC (Bld) [#/Vol] 0 10*3/uL Normal 0-5 [facility] Comment on above: Performed By: #### L 500.2500, L100.0100 #### [facility] [address] [place], [address] Platelet mean volume (Bld) [Entitic vol] 10.2 fL Normal 6.2-12.0 [facility] Comment on above: Performed By: #### L 500.2500, L100.0100 #### [facility] [address] [place], [address] Platelets (Bld) [#/Vol] 199 10*3/uL Normal 150-450 [facility] Comment on above: Performed By: #### L 500.2500, L100.0100 #### [facility] [address] [place], [address] RBC (Bld) [#/Vol] 3.87 10*6/uL Low 4.2-5.4 [facility] Comment on above: Performed By: #### L 500.2500, L100.0100 #### [facility] [address] [place], [address] RDW SD 44.3 fl High 35.1-43.9 [facility] Comment on above: Performed By: #### L 500.2500, L100.0100 #### [facility] [address] [place], [address] WBC (Bld) [#/Vol] 5.8 10*3/uL Normal 4.4-11.0 [facility] Comment on above: Performed By: #### L 500.2500, L100.0100 #### [facility] [address] [place], [address] Comprehensive Metabolic Prof uton 05-09-2025 Albumin [Mass/Vol] 4.1 g/dL Normal 3.4-4.8 [facility] Comment on above: Performed By: #### L 500.2500, L100.0100 #### [facility] [address] [place], [address] Albumin/Globulin [Mass ratio] 1.8 {ratio} Normal 0.9-2.4 [facility] Comment on above: Performed By: #### L 500.2500, L100.0100 #### [facility] [address] [place], [address] ALK PHOS 111 U/L High 35-104 [facility] Comment on above: Performed By: #### L 500.2500, L100.0100 #### [facility] [address] [place], [address] ALT [Catalytic activity/Vol] 22 U/L Normal <=34 [facility] Comment on above: Performed By: #### L 500.2500, L100.0100 #### [facility] [address] [place], [address] AST [Catalytic activity/Vol] 18 U/L Normal <=31 [facility] Comment on above: Performed By: #### L 500.2500, L100.0100 #### [facility] [address] [place], [address] Bilirubin [Mass/Vol] 0.30 mg/dL Normal 0.00-1.30 [facility] Comment on above: Performed By: #### L 500.2500, L100.0100 #### [facility] [address] [place], [address] BUN/CRE 11.7 RATIO Normal 10-20 [facility] Comment on above: Performed By: #### L 500.2500, L100.0100 #### [facility] [address] [place], [address] Calcium [Mass/Vol] 9.9 mg/dL Normal 7.6-11.0 [facility] Comment on above: Performed By: #### L 500.2500, L100.0100 #### [facility] [address] [place], [address] Chloride [Moles/Vol] 104 mmol/L Normal 98-108 [facility] Comment on above: Performed By: #### L 500.2500, L100.0100 #### [facility] [address] [place], [address] CO2 [Moles/Vol] 24.4 mmol/L Normal 21.0-32.0 [facility] Comment on above: Performed By: #### L 500.2500, L100.0100 #### [facility] [address] [place], [address] Creatinine [Mass/Vol] 0.84 mg/dL Normal 0.70-1.20 [facility] Comment on above: Performed By: #### L 500.2500, L100.0100 #### [facility] [address] [place], [address] GAP 10 Normal 5-15 [facility] Comment on above: Performed By: #### L 500.2500, L100.0100 #### [facility] [address] [place], [address] GFR/1.73 sq M.predicted among non-blacks MDRD (S/P/Bld) [Vol rate/Area] 78 mL/min/{1.73_m2} Normal >60 [facility] Comment on above: Result Comment: mL/m in/1.73m2 CKD-EPI Creatinine Equation (2020) Performed By: #### L 500.2500, L100.0100 #### [facility] [address] [place], [address] Globulin (S) [Mass/Vol] 2.3 g/dL Normal 2.2-4.2 [facility] Comment on above: Performed By: #### L 500.2500, L100.0100 #### [facility] [address] [place], [address] Glucose [Mass/Vol] 91 mg/dL Normal 70-99 [facility] Comment on above: Performed By: #### L 500.2500, L100.0100 #### [facility] [address] [place], [address] Potassium [Moles/Vol] 4.4 mmol/L Normal 3.3-5.1 [facility] Comment on above: Performed By: #### L 500.2500, L100.0100 #### [facility] [address] [place], [address] Sodium [Moles/Vol] 138 mmol/L Normal 133-145 [facility] Comment on above: Performed By: #### L 500.2500, L100.0100 #### [facility] [address] [place], [address] T PROT 6.4 g/dL Normal 5.9-8.4 [facility] Comment on above: Performed By: #### L 500.2500, L100.0100 #### [facility] [address] [place], [address] Urea nitrogen [Mass/Vol] 10 mg/dL Normal 4-19 [facility] Comment on above: Performed By: #### L 500.2500, L100.0100 #### [facility] [address] [place], [address] Gastroenterology Visit Repor ton 05-09-2025 Gastroenterology Visit Report [facility] [address] [place] [address] OFFICE VISIT Date of Service: 05/09/25 MR#: [id number] Acct: [id number] Name: NESSA AMARAL Rep #: [id number] : 1960 Provider: KARLA Riley Age/Sex: 64/F Location: [facility] Status: Signed Intake Vital Signs 01/08/25 15:58 04/17/25 16:32 Height 5 ft 4 in 5 ft 4 in Intake Visit Reasons: 3 M FU Chief Complaint: GI bleed Daycare Provider Required: No Accompanied by: Self Is patient in pain?: No Allergies No Known Allergies Allergy (Verified 05/09/25 15:32) Medications ???Medication ???Instructions ???Recorded ???Confirmed ???Type timolol maleate 0.5 % eye drops 1 drp ophthalmic (eye) BID glaucom a 10/26/24 01/08/25 History thiamine HCl (vitamin B1) 100 mg 100 mg PO DAILYCM 30 days #30 tabs 10/29/24 01/08/25 Rx tablet pantoprazole 40 mg tablet,delayed 40 mg PO BID 30 days #60 tabs 05/09/25 Rx release PFSH Medical History (Updated 04/17/25 @ 16:43 by JORJE Mo) Poison lasha dermatitis Lumbar scoliosis Alcohol abuse Leg pain Surgical History H/O dilation and curettage Hx of cholecystectomy Social History household members: none current occupational status: employed current occupation: [employer] pets and animals: Yes (1) pets and animals: cat(s) Smoking Status: Current every day smoker tobacco type: cigarettes Tobacco: How many years used: 40 alcohol intake: current alcohol intake frequency: 3 or more drinks per day substance use type: does not use and former substance user caffeine: Yes (1) Type: carbonated beverages what type of physical activity do you participate in: none frequency: 1-2 times per week do you feel safe at home: Yes HPI HPI Chief Complaint: GI bleed Details: NESSA AMARAL, is a 64 F who presents to the office today for f/u. BGI established in Oct 2024 after presentation to the ED with 5-10 episodes of loose stool that was dark in color. Pt was sob and lightheaded therefore EMS called. Blood work revealing hemoglobin of 3.3. Pt has hx of drinking 3-4 beers daily. Underwent EGD showing Mallery-Esperanza tear and a spurting duodenal ulcer. Transfused a total of 4 units during her stay. Hemoglobin at discharge stable at 8.6 EGD 10.26.24; - Nida-Cabrera tear. Treated with argon plasma coagulation (APC). - No gross lesions in the entire stomach. - Spurting duodenal ulcer with a visible vessel. Treatment not successful. Treated with a heater probe. Treated with argon plasma coagulation (APC). Clips were placed. 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 - No specimens collected. Last OV 11.07.24; Pt no longer having any GI issues however she is having a lot of anxiety and depression after her admission as it was traumatic. No longer drinking any alcohol and working on smoking cessation. Blood work 01.08. Hgb 11.9 OV ..25 Pt doing well today. She was having severe constipation while on iron. Her PCP tommy labs which showed a normal iron and improving hemoglobin so he recommends she discontinue the iron. Since stopping it she is having normal bowel movements. She admits that she has started to drink again. She is drinking two drinks 3x per week. Biochemical work up 02.07.25 Hgb 11.8, CMP wnl OV 7..25 Pt doing well today. She has no GI complaints. SHe is having a normal bm daily. She is not have black or tarry stools. She has been drinking 5 days per week a few drinks per day. ROS Const Constitutional: No fatigue, fever(s) or weight change ENT ENT: No difficulty swallowing Cardio Cardiology: Positive for leg pain with exertion Gastro GI: No abdominal pain, belching, bloating, change in bowel habits, change in stool character, coffee ground emesis, constipation, cramping, diarrhea, heartburn, difficulty swallowing, feeling full early, excessive flatus, incontinent of stools, Vomiting blood/hematemesis, Blood in stool, loose stools, Black,tarry stools, nausea/dyspepsia, pain with swallowing, vomiting or other Musc Musculoskeletal: Positive for back pain, Arthritis, sciatica, leg pain at night and leg pain with exertion; No joint pain Skin Skin: No yellowing of the eye or itchy eyes Psych Psychiatric: No anxiety and No depression Endo Endocrine: No fatigue or weight change Aller/Imm Allergy/Immunologic: No itchy eyes Viraj/Lymp Hematologic/Lymphatic: No easy bleeding or easy bruising Exam Const General: cooperative, healthy appearing and comfortable Orientation: alert HENMT Head: normal to inspection Eyes General: appearance normal, both eyes and all related structures Neck Neck: normal visual inspection Chest Chest palpatio (more content not included)... Normal [facility] Prothrombin Time w/INRon INR Coag (PPP) [Relative time] 0.9 {INR} Normal [facility] Comment on above: Performed By: #### L 500.2500, L100.0100 #### [facility] [address] [place], [place], [address] PT Coag (PPP) [Time] 12.6 s Normal 11.7-14.9 [facility] Comment on above: Performed By: #### L 500.2500, L100.0100 #### [facility] [address] [place], [place], [address] Urgent Care Visit Reporton 0 04-17-2025 Urgent Care Visit Report [facility] [address], [address] [place], [place] [address] OFFICE VISIT Date of Service: 04/17/25 MR#: [id number] Acct: [id number] Name: NESSA AMARAL Rep #: [id number] : 1960 Provider: JORJE Linares Age/Sex: 64/F Location: [facility] Status: Signed Intake Vital Signs 01/08/25 15:58 04/17/25 16:32 Height 5 ft 4 in 5 ft 4 in Weight: 120 lb BMI 20.5 BP 126/80 H 136/90 H Blood Pressure Location Lt brachial Lt brachial Position Sitting Sitting Respiration 16 17 Pulse 72 84 Pulse Source Monitor NIBP Temp 97.1 F L 98.1 F Temp Source Temporal Oral Pulse Oximetry (%) 99 98 Oxygen Delivery Method room air room air Intake Visit Reasons: RASH ON LEGS, ARMS Chief Complaint: rash Daycare Provider Required: No Is patient in pain?: No Allergies No Known Allergies Allergy (Verified 04/17/25 16:38) Is last menstrual period known: No Post menopausal: Yes Patient : No Have you fallen in the past year?: No Nurse's Note: rash to bilateral arms and legs x 4 days with itching. concern for poison lasha [facility] Medical History (Updated 04/17/25 @ 16:43 by JORJE Mo) Poison lasha dermatitis Lumbar scoliosis Alcohol abuse Leg pain Surgical History H/O dilation and curettage Hx of cholecystectomy Social History household members: none current occupational status: employed current occupation: formerly [employer] pets and animals: Yes (1) pets and animals: cat(s) Smoking Status: Current every day smoker tobacco type: cigarettes Tobacco: How many years used: 40 alcohol intake: current alcohol intake frequency: 3 or more drinks per day substance use type: does not use and former substance user caffeine: Yes (1) Type: carbonated beverages what type of physical activity do you participate in: none frequency: 1-2 times per week do you feel safe at home: Yes HPI HPI Chief Complaint: rash Details: NESSA AMARAL, is a 64 F who presents to the office today for HPI: 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 She presents with a vesicular rash over the bilateral forearms and bilateral legs. She otherwise denies any fever or any other health concerns. ROS: As noted in HPI Physical Exam: VITALS: Reviewed. GEN: Healthy appearing, well-developed, NAD. PSYCH: AOx3. Normal memory, mood, and affect. LUNGS: Normal respiratory effort. SKIN: Warm, well perfused. Scattered vesicular rash over the bilateral forearms and legs MSK: Normal gait. NEURO: Ambulating with no limitations. Normal muscle strength and tone. No focal deficits. Coding Level of Care Code Off vis,est,level 3 Diagnoses Poison lasha dermatitis L23.7 Assessment and Plan Assessment and Plan (1) Poison lasha dermatitis: Status: Acute Plan: Patient's presentation most consistent with contact dermatitis related to poison lasha. She was given prescriptions as noted below for symptomatic relief. She was instructed to thoroughly clean and wash all clothing that may have come in contact with oils. Medications: New prednisone 3 tabs once daily x 5 days then 2 tabs once daily x 5 days then 1 tab once daily x 5 days 20 mg PO DIRECTED 30 tabs 0RF cetirizine (Zyrtec) 10 mg PO QDAY 7 caps 0RF Clinical Quality Measures Falls Risk Screening/Assistive Devices Have you fallen in the past year?: No 04/17/25 1644 Date Sebastian Moemilia NEONATAL DOCTOR-C Cosigner Signature: Date (if applicable) CC: Normal [facility] Absolute lymphocyte countOrd ered By: Oumou De La Rosa on 02-07-2025 Lymphocytes Auto (Unsp spec) [#/Vol] 2.01 10*3/uL 0.83-4.51 [facility] Absolute neutrophil countOrd ered By: Oumou De La Rosa on 02-07-2025 Neutrophils (Bld) [#/Vol] 3.5 10*3/uL 2.0-7.7 [facility] Anion gap in Serum or Plasma Ordered By: Oumou De La Rosa on 02-07-2025 Anion gap [Moles/Vol] 10 mmol/L 5-15 [facility] Automated lymphocyte count a s percentage of total leukocytesOrdered By: Oumou De La Rosa on 02-07-2025 Lymphocytes/100 WBC Auto (Unsp spec) 32.5 % 19-41 [facility] BUN/creatinine ratioOrdered By: Oumou De La Rosa on 02-07-2025 Urea nitrogen/Creatinine [Mass ratio] 15.5 mg/mg 10-20 [facility] Basophil percentageOrdered B y: Oumou Rj on 02-07-2025 Basophils/100 WBC (Bld) 1.0 % 0-1 [facility] Bilirubin, totalOrdered By: Oumou Rj on 02-07-2025 Bilirubin [Mass/Vol] 0.23 mg/dL 0.00-1.30 [facility] CBC W/Diff, Automatedon 01-16 Absolute Lymph 2.01 X10 3/uL Normal 0.83-4.51 [facility] Comment on above: Performed By: #### L 100.0100, L500.4050 #### [facility] [address] [place], [address] Absolute Neut 3.5 X10 3/uL Normal 2.0-7.7 [facility] Comment on above: Performed By: #### L 100.0100, L500.4050 #### [facility] [address] [place], [address] Basophils/100 WBC (Bld) 1.0 % Normal 0-1 [facility] Comment on above: Performed By: #### L 100.0100, L500.4050 #### [facility] [address] [place], [address] Eosinophils/100 WBC (Bld) 2.3 % Normal 0-5 [facility] Comment on above: Performed By: #### L 100.0100, L500.4050 #### [facility] [address] [place], [address] Erythrocyte distribution width (RBC) [Ratio] 12.6 % Normal 11.6-14.6 [facility] Comment on above: Performed By: #### L 100.0100, L500.4050 #### [facility] [address] [place], [address] Hematocrit (Bld) [Volume fraction] 36.3 % Low 37-47 [facility] Comment on above: Performed By: #### L 100.0100, L500.4050 #### [facility] [address] [place], [address] Hemoglobin (Bld) [Mass/Vol] 11.8 g/dL Low 12.0-15.0 [facility] Comment on above: Performed By: #### L 100.0100, L500.4050 #### [facility] [address] [place], [address] IG% 0.300 Normal 0.0-0.9 [facility] Comment on above: Result Comment: IG% - Immature Granulocytes (promyelocytes, myelocytes and metamyelocytes) > 1% indicates that a LEFT SHIFT is Present. Performed By: #### L 100.0100, L500.4050 #### [facility] [address] [place], [address] Lymphocytes/100 WBC (Bld) 32.5 % Normal 19-41 [facility] Comment on above: Performed By: #### L 100.0100, L500.4050 #### [facility] [address] [place], [address] MCH (RBC) [Entitic mass] 29.0 pg Normal 27.0-32.0 [facility] Comment on above: Performed By: #### L 100.0100, L500.4050 #### [facility] [address] [place], [address] MCHC (RBC) [Mass/Vol] 32.5 g/dL Normal 32-36 [facility] Comment on above: Performed By: #### L 100.0100, L500.4050 #### [facility] [address] [place], [address] MCV (RBC) [Entitic vol] 89.2 fL Normal 81-99 [facility] Comment on above: Performed By: #### L 100.0100, L500.4050 #### [facility] [address] [place], [address] Monocytes/100 WBC (Bld) 7.0 % Normal 0-10 [facility] Comment on above: Performed By: #### L 100.0100, L500.4050 #### [facility] [address] [place], [address] Neutrophils/100 WBC (Bld) 56.9 % Normal 47-70 [facility] Comment on above: Performed By: #### L 100.0100, L500.4050 #### [facility] [address] [place], [address] Nucleated RBC (Bld) [#/Vol] 0 10*3/uL Normal 0-5 [facility] Comment on above: Performed By: #### L 100.0100, L500.4050 #### [facility] [address] [place], [address] Platelet mean volume (Bld) [Entitic vol] 10.4 fL Normal 6.2-12.0 [facility] Comment on above: Performed By: #### L 100.0100, L500.4050 #### [facility] [address] [place], [address] Platelets (Bld) [#/Vol] 240 10*3/uL Normal 150-450 [facility] Comment on above: Performed By: #### L 100.0100, L500.4050 #### [facility] [address] [place], [address] RBC (Bld) [#/Vol] 4.07 10*6/uL Low 4.2-5.4 [facility] Comment on above: Performed By: #### L 100.0100, L500.4050 #### [facility] [address] [place], [address] RDW SD 41.2 fl Normal 35.1-43.9 [facility] Comment on above: Performed By: #### L 100.0100, L500.4050 #### [facility] [address] [place], [address] WBC (Bld) [#/Vol] 6.2 10*3/uL Normal 4.4-11.0 [facility] Comment on above: Performed By: #### L 100.0100, L500.4050 #### [facility] [address] [place], [address] Carbon dioxide, total [Moles /volume] in Central venous bloodOrdered By: Oumou De La Rosa on 02-07-2025 CO2 [Moles/Vol] 25.3 mmol/L 21.0-32.0 [facility] Chloride assayOrdered By: Akosua De La Rosa on 02-07-2025 Chloride [Moles/Vol] 106 mmol/L 98-108 [facility] Comprehensive Metabolic Prof ilon 02-07-2025 Albumin [Mass/Vol] 4.3 g/dL Normal 3.4-4.8 [facility] Comment on above: Performed By: #### L 100.0100, L500.4050 #### [facility] [address] [place], [address] Albumin/Globulin [Mass ratio] 2.0 {ratio} Normal 0.9-2.4 [facility] Comment on above: Performed By: #### L 100.0100, L500.4050 #### [facility] [address] [place], [address] ALK PHOS 98 U/L Normal 35-104 [facility] Comment on above: Performed By: #### L 100.0100, L500.4050 #### [facility] [address] [place], [address] ALT [Catalytic activity/Vol] 10 U/L Normal <=34 [facility] Comment on above: Performed By: #### L 100.0100, L500.4050 #### [facility] [address] [place], [address] AST [Catalytic activity/Vol] 16 U/L Normal <=31 [facility] Comment on above: Performed By: #### L 100.0100, L500.4050 #### [facility] [address] [place], [address] Bilirubin [Mass/Vol] 0.23 mg/dL Normal 0.00-1.30 [facility] Comment on above: Performed By: #### L 100.0100, L500.4050 #### [facility] [address] [place], [address] BUN/CRE 15.5 RATIO Normal 10-20 [facility] Comment on above: Performed By: #### L 100.0100, L500.4050 #### [facility] [address] [place], [address] Calcium [Mass/Vol] 10.0 mg/dL Normal 7.6-11.0 [facility] Comment on above: Performed By: #### L 100.0100, L500.4050 #### [facility] [address] [place], [address] Chloride [Moles/Vol] 106 mmol/L Normal 98-108 [facility] Comment on above: Performed By: #### L 100.0100, L500.4050 #### [facility] [address] [place], [address] CO2 [Moles/Vol] 25.3 mmol/L Normal 21.0-32.0 [facility] Comment on above: Performed By: #### L 100.0100, L500.4050 #### [facility] [address] [place], [address] Creatinine [Mass/Vol] 0.79 mg/dL Normal 0.70-1.20 [facility] Comment on above: Performed By: #### L 100.0100, L500.4050 #### [facility] [address] [place], [address] GAP 10 Normal 5-15 [facility] Comment on above: Performed By: #### L 100.0100, L500.4050 #### [facility] [address] [place], [address] GFR/1.73 sq M.predicted among non-blacks MDRD (S/P/Bld) [Vol rate/Area] 84 mL/min/{1.73_m2} Normal >60 [facility] Comment on above: Result Comment: mL/m in/1.73m2 CKD-EPI Creatinine Equation (2020) Performed By: #### L 100.0100, L500.4050 #### [facility] [address] [place], [address] Globulin (S) [Mass/Vol] 2.2 g/dL Normal 2.2-4.2 [facility] Comment on above: Performed By: #### L 100.0100, L500.4050 #### [facility] [address] [place], [address] Glucose [Mass/Vol] 88 mg/dL Normal 70-99 [facility] Comment on above: Performed By: #### L 100.0100, L500.4050 #### [facility] [address] [place], [address] Potassium [Moles/Vol] 4.0 mmol/L Normal 3.3-5.1 [facility] Comment on above: Performed By: #### L 100.0100, L500.4050 #### [facility] [address] [place], [address] Sodium [Moles/Vol] 141 mmol/L Normal 133-145 [facility] Comment on above: Performed By: #### L 100.0100, L500.4050 #### [facility] [address] [place] [place], [address] T PROT 6.5 g/dL Normal 5.9-8.4 [facility] Comment on above: Performed By: #### L 100.0100, L500.4050 #### [facility] [address] [place], [address] Urea nitrogen [Mass/Vol] 12 mg/dL Normal 4-19 [facility] Comment on above: Performed By: #### L 100.0100, L500.4050 #### [facility] [address] [place], [address] Eosinophil percentageOrdered By: Oumou De La Rosa on 02-07-2025 Eosinophils/100 WBC (Bld) 2.3 % 0-5 [facility] Erythrocyte distribution wid th ratioOrdered By: Oumou De La Rosa on 02-07-2025 Erythrocyte distribution width (RBC) [Ratio] 12.6 % 11.6-14.6 [facility] Erythrocyte distribution wid th standard deviationOrdered By: Oumou [facility] on 02-07-2025 Erythrocyte distribution width (RBC) [Ratio] 41.2 fl 35.1-43.9 [facility] Gastroenterology Visit Repor ton 02-07-2025 Gastroenterology Visit Report [facility] [address] [place] [address] OFFICE VISIT Date of Service: 02/07/25 MR#: [id number] Acct: [id number] Name: NESSA AMARAL Dewayne Rep #: [id number] : 1960 Provider: KARLA Riley Age/Sex: 64/F Location: [facility] Status: Signed Intake Vital Signs 10/29/24 12:14 01/08/25 15:58 Height 5 ft 4 in 5 ft 4 in Intake Visit Reasons: 3 M FU Chief Complaint: Constipation Allergies No Known Allergies Allergy (Verified 01/08/25 15:55) Nurse's Note: OV 02.07.25 Pt here for f/u and reports she is feeling well. Pt reports she stopped taking iron supplements as directed by her PCP and her constipation has resolved. Continues pantoprazole daily. [facility] Medical History Lumbar scoliosis Alcohol abuse Leg pain Surgical History H/O dilation and curettage Hx of cholecystectomy Social History household members: none current occupational status: employed current occupation: [employer] pets and animals: Yes (1) pets and animals: cat(s) Smoking Status: Current every day smoker tobacco type: cigarettes Tobacco: How many years used: 40 alcohol intake: current alcohol intake frequency: 3 or more drinks per day substance use type: does not use and former substance user caffeine: Yes (1) Type: carbonated beverages what type of physical activity do you participate in: none frequency: 1-2 times per week do you feel safe at home: Yes HPI HPI Chief Complaint: Constipation Details: NESSA AMARAL, is a 64 F who presents to the office today for f/u. BGI established in Oct 2024 after presentation to the ED with 5-10 episodes of loose stool that was dark in color. Pt was sob and lightheaded therefore EMS called. Blood work revealing hemoglobin of 3.3. Pt has hx of drinking 3-4 beers daily. Underwent EGD showing Mallery-Esperanza tear and a spurting duodenal ulcer. Transfused a total of 4 units during her stay. Hemoglobin at discharge stable at 8.6 EGD 10.26.24; - Nida-Cabrera tear. Treated with argon plasma coagulation (APC). - No gross lesions in the entire stomach. - Spurting duodenal ulcer with a visible vessel. Treatment not successful. Treated with a heater probe. Treated with argon plasma coagulation (APC). Clips were placed. 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 - No specimens collected. Last OV 11.07.24; Pt no longer having any GI issues however she is having a lot of anxiety and depression after her admission as it was traumatic. No longer drinking any alcohol and working on smoking cessation. Blood work 3.25.25 Hgb 11.9 OV 4.24.25 Pt doing well today. She was having severe constipation while on iron. Her PCP tommy labs which showed a normal iron and improving hemoglobin so he recommends she discontinue the iron. Since stopping it she is having normal bowel movements. She admits that she has started to drink again. She is drinking two drinks 3x per week. ROS Const Constitutional: No fatigue, fever(s) or weight change ENT ENT: No difficulty swallowing Gastro GI: No abdominal pain, belching, bloating, change in bowel habits, change in stool character, coffee ground emesis, constipation, cramping, diarrhea, heartburn, difficulty swallowing, feeling full early, excessive flatus, incontinent of stools, Vomiting blood/hematemesis, Blood in stool, loose stools, Black,tarry stools, nausea/dyspepsia, pain with swallowing, vomiting or other Musc Musculoskeletal: Positive for joint pain, back pain, Arthritis, sciatica and leg pain at night Skin Skin: No yellowing of the eye or itchy eyes Psych Psychiatric: No anxiety and No depression Endo Endocrine: No fatigue or weight change Aller/Imm Allergy/Immunologic: No itchy eyes Viraj/Lymp Hematologic/Lymphatic: No easy bleeding or easy bruising Exam Const General: cooperative and comfortable Nutritional Appearance: average body habitus and well nourished [facility] Head: normal to inspection Ears: hearing grossly normal bilaterally Nose: external nose normal Face and sinus: normal facial exam Eyes General: appearance normal, both eyes and all related structures Neck Neck: normal visual inspection Chest Chest palpation inspection: normal inspection of the chest and normal palpation of entire chest wall Resp Effort Inspection: normal respiratory effort Auscultation: Bilateral: Clear to Auscultation Cardio Palpation: normal PMI Rate: regular rate Rhythm: regular rhythm GI Inspection: normal to inspection Auscultation: normal bowel sounds Percussion: normal to percussion Palpation: no hepatosplenomegaly Skin General: no rashes or lesions noted Bree (more content not included)... Normal [facility] Glomerular filtration rate ( GFR) estimation/1.73 sq m using serum, plasma, or whole bOrdered By: Oumou De La Rosa on 02-07-2025 GFR/1.73 sq M.predicted among non-blacks MDRD (S/P/Bld) [Vol rate/Area] 84 mL/min/{1.73_m2} >60 [facility] Comment on above: mL/min/1.73m2 CKD-EP I Creatinine Equation (2020) Hematocrit Auto (Bld) [Volum e fraction]Ordered By: Oumou De La Rosa on 02-07-2025 Hematocrit (Bld) [Volume fraction] 36.3 % Low 37-47 [facility] Hemoglobin measurementOrdere d By: Oumou De La Rosa on 02-07-2025 Hemoglobin (Bld) [Mass/Vol] 11.8 g/dL Low 12.0-15.0 [facility] Immature granulocytes/100 WB C Auto (Bld)Ordered By: Oumou De La Rosa on 02-07-2025 Immature granulocytes/100 WBC (Bld) 0.300 % 0.0-0.9 [facility] Comment on above: IG% - Immature Granu locytes (promyelocytes, myelocytes and metamyelocytes) > 1% indicates that a LEFT SHIFT is Present. Laboratory - Chemistry and C hemistry - challengeOrdered By: Oumou De La Rosa on 02-07-2025 AST [Catalytic activity/Vol] 16 U/L <32 [facility] MCV (mean corpuscular volume ) determinationOrdered By: Oumou De La Rosa on 02-07-2025 MCV (RBC) [Entitic vol] 89.2 fL 81-99 [facility] Mean corpuscular hemoglobin (MCH) determinationOrdered By: Oumou De La Rosa 02-07-2025 MCH (RBC) [Entitic mass] 29.0 pg 27.0-32.0 [facility] Mean corpuscular hemoglobin concentration (MCHC) determinationOrdered By: Oumou De La Rosa on 02-07-2025 MCHC (RBC) [Mass/Vol] 32.5 g/dL 32-36 [facility] Mean platelet volume determi nationOrdered By: Oumou De La Rosa on 02-07-2025 Platelet mean volume (Bld) [Entitic vol] 10.4 fL 6.2-12.0 [facility] Monocyte percentageOrdered B y: Oumou De La Rosa on 04-24-2025 Monocytes/100 WBC (Bld) 7.0 % 0-10 [facility] Neutrophil percentageOrdered By: Oumou De La Rosa on 02-07-2025 Neutrophils/100 WBC (Bld) 56.9 % 47-70 [facility] Nucleated red blood cell per centageOrdered By: Oumou De La Rosa on 02-07-2025 Nucleated RBC/100 WBC (Bld) [Ratio] 0 % 0-5 [facility] Platelet countOrdered By: Akosua De La Rosa on 02-07-2025 Platelets (Bld) [#/Vol] 240 10*3/uL 150-450 [facility] Potassium measurement (mass/ volume)Ordered By: Oumou De La Rosa on 02-07-2025 Potassium (Unsp spec) [Mass/Vol] 4.0 mmol/L 3.3-5.1 [facility] RBC Auto (Bld) [#/Vol]Ordere d By: Oumou De La Rosa on 02-07-2025 RBC (Bld) [#/Vol] 4.07 10*6/uL Low 4.2-5.4 [facility] Serum creatinine measurement (mass/volume)Ordered By: Oumou De La Rosa on 02-07-2025 Creatinine [Mass/Vol] 0.79 mg/dL 0.70-1.20 [facility] Serum globulin measurementOr dered By: Oumou De La Rosa on 02-07-2025 Globulin (S) [Mass/Vol] 2.2 g/dL 2.2-4.2 [facility] Serum glucose measurement (m ass/volume)Ordered By: Oumou De La Rosa on 02-07-2025 Glucose [Mass/Vol] 88 mg/dL 70-99 [facility] Serum or plasma alanine angelo otransferase (ALT) measurementOrdered By: Oumou De La Rosa 02-07-2025 ALT [Catalytic activity/Vol] 10 U/L <35 [facility] Serum or plasma albumin ben urement (mass/volume)Ordered By: Oumou De La Rosa on 02-07-2025 Albumin [Mass/Vol] 4.3 g/dL 3.4-4.8 [facility] Serum or plasma albumin/glob ulin mass ratioOrdered By: Oumou De La Rosa on 02-07-2025 Albumin/Globulin [Mass ratio] 2.0 {ratio} 0.9-2.4 [facility] Serum or plasma alkaline nicholas sphatase measurementOrdered By: Oumou De La Rosa on 02-07-2025 ALP [Catalytic activity/Vol] 98 U/L 35-104 [facility] Serum or plasma calcium ben urement (mass/volume)Ordered By: Oumou De La Rosa on 02-07-2025 Calcium [Mass/Vol] 10.0 mg/dL 7.6-11.0 [facility] Serum or plasma urea nitroge n measurement (mass/volume)Ordered By: Oumou De La Rosa on 02-07-2025 Urea nitrogen [Mass/Vol] 12 mg/dL 4-19 [facility] Sodium levelOrdered By: Patricia De La Rosa on 02-07-2025 Sodium [Moles/Vol] 141 mmol/L 133-145 [facility] Total proteinOrdered By: Kathy De La Rosa on 02-07-2025 Protein [Mass/Vol] 6.5 g/dL 5.9-8.4 [facility] White blood cell (WBC) count Ordered By: Oumou De La Rosa on 02-07-2025 WBC (Bld) [#/Vol] 6.2 10*3/uL 4.4-11.0 [facility] Absolute lymphocyte countOrd ered By: Shlomo Beasley on 01-08-2025 Lymphocytes Auto (Unsp spec) [#/Vol] 2.25 10*3/uL 0.83-4.51 [facility] Absolute neutrophil countOrd ered By: hSlomo Beasley on 01-08-2025 Neutrophils (Bld) [#/Vol] 3.5 10*3/uL 2.0-7.7 [facility] Automated lymphocyte count a s percentage of total leukocytesOrdered By: Shlomo Beasley on 01-08-2025 Lymphocytes/100 WBC Auto (Unsp spec) 35.5 % 19-41 [facility] Basophil percentageOrdered B y: Shlomo Beasley on 01-08-2025 Basophils/100 WBC (Bld) 0.8 % 0-1 [facility] CBC W/Diff, Automatedon 12-16 Absolute Lymph 2.25 X10 3/uL Normal 0.83-4.51 [facility] Comment on above: Performed By: #### L 100.0600 #### [facility] [address] [place], [address] Absolute Neut 3.5 X10 3/uL Normal 2.0-7.7 [facility] Comment on above: Performed By: #### L 100.0600 #### [facility] [address] [place], [address] Basophils/100 WBC (Bld) 0.8 % Normal 0-1 [facility] Comment on above: Performed By: #### L 100.0600 #### [facility] [address] [place], [address] Eosinophils/100 WBC (Bld) 1.6 % Normal 0-5 [facility] Comment on above: Performed By: #### L 100.0600 #### [facility] [address] [place], [address] Erythrocyte distribution width (RBC) [Ratio] 12.8 % Normal 11.6-14.6 [facility] Comment on above: Performed By: #### L 100.0600 #### [facility] [address] [place], [address] Hematocrit (Bld) [Volume fraction] 36.0 % Low 37-47 [facility] Comment on above: Performed By: #### L 100.0600 #### [facility] [address] [place], [address] Hemoglobin (Bld) [Mass/Vol] 11.9 g/dL Low 12.0-15.0 [facility] Comment on above: Performed By: #### L 100.0600 #### [facility] [address] [place], [address] IG% 0.200 Normal 0.0-0.9 [facility] Comment on above: Result Comment: IG% - Immature Granulocytes (promyelocytes, myelocytes and metamyelocytes) > 1% indicates that a LEFT SHIFT is Present. Performed By: #### L 100.0600 #### [facility] [address] [place], [address] Lymphocytes/100 WBC (Bld) 35.5 % Normal 19-41 [facility] Comment on above: Performed By: #### L 100.0600 #### [facility] [address] [place], [address] MCH (RBC) [Entitic mass] 29.7 pg Normal 27.0-32.0 [facility] Comment on above: Performed By: #### L 100.0600 #### [facility] [address] [place], [address] MCHC (RBC) [Mass/Vol] 33.1 g/dL Normal 32-36 [facility] Comment on above: Performed By: #### L 100.0600 #### [facility] [address] [place], [address] MCV (RBC) [Entitic vol] 89.8 fL Normal 81-99 [facility] Comment on above: Performed By: #### L 100.0600 #### [facility] [address] [place], [address] Monocytes/100 WBC (Bld) 6.9 % Normal 0-10 [facility] Comment on above: Performed By: #### L 100.0600 #### [facility] [address] [place], [address] Neutrophils/100 WBC (Bld) 55.0 % Normal 47-70 [facility] Comment on above: Performed By: #### L 100.0600 #### [facility] [address] [place], [address] Nucleated RBC (Bld) [#/Vol] 0 10*3/uL Normal 0-5 [facility] Comment on above: Performed By: #### L 100.0600 #### [facility] [address] [place], [address] Platelet mean volume (Bld) [Entitic vol] 10.3 fL Normal 6.2-12.0 [facility] Comment on above: Performed By: #### L 100.0600 #### [facility] [address] [place], [address] Platelets (Bld) [#/Vol] 237 10*3/uL Normal 150-450 [facility] Comment on above: Performed By: #### L 100.0600 #### [facility] [address] [place], [address] RBC (Bld) [#/Vol] 4.01 10*6/uL Low 4.2-5.4 [facility] Comment on above: Performed By: #### L 100.0600 #### [facility] [address] [place], [address] RDW SD 42.2 fl Normal 35.1-43.9 [facility] Comment on above: Performed By: #### L 100.0600 #### [facility] [address] [place], [address] WBC (Bld) [#/Vol] 6.3 10*3/uL Normal 4.4-11.0 [facility] Comment on above: Performed By: #### L 100.0600 #### [facility] [address] [place], [address] Eosinophil percentageOrdered By: Shlomo Brown on 01-08-2025 Eosinophils/100 WBC (Bld) 1.6 % 0-5 [facility] Erythrocyte distribution wid th ratioOrdered By: Shlomo Brown on 01-08-2025 Erythrocyte distribution width (RBC) [Ratio] 12.8 % 11.6-14.6 [facility] Erythrocyte distribution wid th standard deviationOrdered By: Shlomo Beasley on 01-08-2025 Erythrocyte distribution width (RBC) [Entitic vol] 42.2 fL 35.1-43.9 [facility] Erythrocyte distribution width (RBC) [Ratio] 42.2 fl 35.1-43.9 [facility] Hematocrit Auto (Bld) [Volum e fraction]Ordered By: Shlomo Beasley on 01-08-2025 Hematocrit (Bld) [Volume fraction] 36.0 % Low 37-47 [facility] Hemoglobin measurementOrdere d By: Shlomo Beasley on 01-08-2025 Hemoglobin (Bld) [Mass/Vol] 11.9 g/dL Low 12.0-15.0 [facility] Immature granulocytes/100 WB C Auto (Bld)Ordered By: Shlomo Beasley on 01-08-2025 Immature granulocytes/100 WBC (Bld) 0.200 % 0.0-0.9 [facility] Comment on above: IG% - Immature Granu locytes (promyelocytes, myelocytes and metamyelocytes) > 1% indicates that a LEFT SHIFT is Present. Internal Medicine Office Vis iton 01-08-2025 Internal Medicine Office Visit [facility] [address] [place] [address] [place] [address] OFFICE VISIT Date of Service: 01/08/25 MR#: [id number] Acct: [id number] Name: NESSA AMARAL Rep #: [id number] : 1960 Provider: Dr. Shlomo Powell Br own, DO Age/Sex: 64/F Location: [facility] Status: Signed Intake Vital Signs 10/29/24 12:14 01/08/25 15:58 Height 5 ft 4 in 5 ft 4 in Weight: 120 lb BMI 20.5 BP 126/80 H Blood Pressure Location Lt brachial Position Sitting Respiration 16 Pulse 72 Pulse Source Monitor Temp 97.1 F L Temp Source Temporal Pulse Oximetry (%) 99 Oxygen Delivery Method room air Intake Visit Reasons: FU Chief Complaint: Constipation. Daycare Provider Required: No Is patient in pain?: No Allergies No Known Allergies Allergy (Verified 01/08/25 15:55) Medications ???Medication ???Instructions ???Recorded ???Confirmed ???Type timolol maleate 0.5 % eye drops 1 drp ophthalmic (eye) BID glaucom a 10/26/24 01/08/25 History ascorbic acid (vitamin C) 500 mg 500 mg PO BID #60 tabs 10/29/24 Rx tablet ferrous sulfate 325 mg (65 mg 325 mg PO DAILY 30 days #30 tabs 0 10/29/24 01/08/25 Rx iron) tablet (FeroSul) folic acid 1 mg tablet 1 mg PO DAILY@0800 30 days #30 tab s 10/29/24 01/08/25 Rx pantoprazole 40 mg tablet,delayed 40 mg PO BID 30 days #60 tabs 01/08/25 Rx release thiamine HCl (vitamin B1) 100 mg 100 mg PO DAILYCM 30 days #30 tabs 10/29/24 01/08/25 Rx tablet Nurse's Note: States she does not feel bad but feels different since Gi ulcer. States she has been pretty constipated and has gone up to 3 days and Bm was hard, and painful. Is uncertain if she cant take laxtives. States she has been taking iron qd advised constipation was a side effect and could take qod. Needs mammogram order sent. [facility] Medical History Lumbar scoliosis Alcohol abuse Leg pain Surgical History H/O dilation and curettage Hx of cholecystectomy Social History household members: none current occupational status: employed current occupation: [employer] pets and animals: Yes (1) pets and animals: cat(s) Smoking Status: Current every day smoker tobacco type: cigarettes Tobacco: How many years used: 40 alcohol intake: current alcohol intake frequency: 3 or more drinks per day substance use type: does not use and former substance user caffeine: Yes (1) Type: carbonated beverages what type of physical activity do you participate in: none frequency: 1-2 times per week do you feel safe at home: Yes HPI HPI Chief Complaint: Constipation. Details: NESSA AMARAL, is a 64 F who presents to the office today for feeling of being fatigued and having trouble with constipation. Late last fall she had a severe GI bleed and was treated for the bleed and placed on oral iron. Over the last couple of months her constipation is getting worse and worse and she continues to take the oral iron. She has had no sign of any rectal bleeding and she has been working full-time and actually feels fairly well except for the severe constipation. ROS Const Constitutional: No body ache, chills, excessive sweating, fatigue, fever(s), frequent falls, headache(s), snoring, weakness, sleep problems or change in appetite Eyes Eyes: No blurry vision, change in vision, eye pain or Light sensitivity ENT ENT: No abnormal hearing, ear or mastoid pain, tinnitus, nasal congestion, headache(s), neck pain or sore throat Resp Respiratory: No cough, shortness of breath, snoring or wheezing Cardio Cardiology: No chest pain at rest, chest pain with exertion, excessive sweating, shortness of breath, dyspnea on exertion, lightheadedness, orthopnea or palpitations Gastro GI: No abdominal pain, change in bowel habits, constipation, cramping, diarrhea, nausea/dyspepsia or vomiting Genitourinary-Female: No burning urination, painful urination, urinary incontinence, urinary frequency, abnormal vaginal bleeding or pelvic pain Musc Musculoskeletal: No abnormal gait, joint pain, back pain, limited range of motion, neck pain or numbness Skin Skin: No dry skin, redness, lesions, itchy eyes, rash or wounds Neuro Neurology: No abnormal gait, abnormal hearing, weakness, frequent falls, headache(s), memory loss or numbness Psych Psychiatric: No anxiety, No change in appetite, No depression, No memory loss and No Thoughts of harming yourself/Others Endo Endocrine: No cold intolerance, excessive sweating, fatigue, flushing, heat intolerance, increased thirst/drinking or increased hunger Aller/Imm Allergy/Immunologic: No itchy eyes, seasonal allergy symptoms, (more content not included)... Normal [facility] Ironon 01-08-2025 Iron [Mass/Vol] 52 ug/dL Normal 50-170 [facility] Comment on above: Performed By: #### L 100.0600 #### [facility] [address] [place], [address] Iron (Unsp spec) [Mass/Mass] Ordered By: Shlomo Beasley on 01-08-2025 Iron [Mass/Vol] 52 ug/dL 50-170 [facility] Iron measurement (mass/mass) Ordered By: Shlomo Beasley on 01-08-2025 Iron (Unsp spec) [Mass/Mass] 52 ug/dL 50-170 [facility] Lymphocytes Auto (Unsp spec) [#/Vol]Ordered By: Shlomo Beasley on 01-08-2025 Lymphocytes (Bld) [#/Vol] 2.25 10*3/uL 0.83-4.51 [facility] Lymphocytes/100 WBC Auto (Un sp spec)Ordered By: Shlomo Beasley on 01-08-2025 Lymphocytes/100 WBC (Bld) 35.5 % 19-41 [facility] MCV (mean corpuscular volume ) determinationOrdered By: Shlomo Beasley on 01-08-2025 MCV (RBC) [Entitic vol] 89.8 fL 81-99 [facility] Mean corpuscular hemoglobin (MCH) determinationOrdered By: Shlomo Beasley on 01-08-2025 MCH (RBC) [Entitic mass] 29.7 pg 27.0-32.0 [facility] Mean corpuscular hemoglobin concentration (MCHC) determinationOrdered By: Shlomo Beasley on 01-08-2025 MCHC (RBC) [Mass/Vol] 33.1 g/dL 32-36 [facility] Mean platelet volume determi nationOrdered By: Shlomo Beasley on 01-08-2025 Platelet mean volume (Bld) [Entitic vol] 10.3 fL 6.2-12.0 [facility] Monocyte percentageOrdered B y: Shlomo Beasley on 01-08-2025 Monocytes/100 WBC (Bld) 6.9 % 0-10 [facility] Neutrophil percentageOrdered By: Shlomo Beasley on 01-08-2025 Neutrophils/100 WBC (Bld) 55.0 % 47-70 [facility] Nucleated red blood cell per centageOrdered By: Shlomo Beasley on 01-08-2025 Nucleated RBC/100 WBC (Bld) [Ratio] 0 % 0-5 [facility] Platelet countOrdered By: hai Ramos on 01-08-2025 Platelets (Bld) [#/Vol] 237 10*3/uL 150-450 [facility] RBC Auto (Bld) [#/Vol]Ordere d By: Shlomo Ramos on 01-08-2025 RBC (Bld) [#/Vol] 4.01 10*6/uL Low 4.2-5.4 [facility] White blood cell (WBC) count Ordered By: Shlomo Beasley on 01-08-2025 WBC (Bld) [#/Vol] 6.3 10*3/uL 4.4-11.0 [facility] Absolute neutrophil countOrd ered By: Oumou De La Rosa on 11-07-2024 Neutrophils (Bld) [#/Vol] 3.6 10*3/uL 2.0-7.7 [facility] Basophil percentageOrdered B y: Oumou De La Rosa on 11-07-2024 Basophils/100 WBC (Bld) 1.2 % High 0-1 [facility] CBC W/Diff, Automatedon 10-18 Absolute Lymph 1.71 X10 3/uL Normal 0.83-4.51 [facility] Comment on above: Performed By: #### L 501.5200, L500.2500, L501.2300 #### [facility] [address] [place], [address] Absolute Neut 3.6 X10 3/uL Normal 2.0-7.7 [facility] Comment on above: Performed By: #### L 501.5200, L500.2500, L501.2300 #### [facility] [address] [place], [address] Basophils/100 WBC (Bld) 1.2 % High 0-1 [facility] Comment on above: Performed By: #### L 501.5200, L500.2500, L501.2300 #### [facility] [address] [place], [address] Eosinophils/100 WBC (Bld) 1.5 % Normal 0-5 [facility] Comment on above: Performed By: #### L 501.5200, L500.2500, L501.2300 #### [facility] [address] [place], [address] Erythrocyte distribution width (RBC) [Ratio] 15.4 % High 11.6-14.6 [facility] Comment on above: Performed By: #### L 501.5200, L500.2500, L501.2300 #### [facility] [address] [place], [address] Hematocrit (Bld) [Volume fraction] 31.3 % Low 37-47 [facility] Comment on above: Performed By: #### L 501.5200, L500.2500, L501.2300 #### [facility] [address] [place], [address] Hemoglobin (Bld) [Mass/Vol] 10.1 g/dL Low 12.0-15.0 [facility] Comment on above: Performed By: #### L 501.5200, L500.2500, L501.2300 #### [facility] [address] [place], [address] IG% 0.500 Normal 0.0-0.9 [facility] Comment on above: Result Comment: IG% - Immature Granulocytes (promyelocytes, myelocytes and metamyelocytes) > 1% indicates that a LEFT SHIFT is Present. Performed By: #### L 501.5200, L500.2500, L501.2300 #### [facility] [address] [place], [address] Lymphocytes/100 WBC (Bld) 28.5 % Normal 19-41 [facility] Comment on above: Performed By: #### L 501.5200, L500.2500, L501.2300 #### [facility] [address] [place], [address] MCH (RBC) [Entitic mass] 29.0 pg Normal 27.0-32.0 [facility] Comment on above: Performed By: #### L 501.5200, L500.2500, L501.2300 #### [facility] [address] [place], [address] MCHC (RBC) [Mass/Vol] 32.3 g/dL Normal 32-36 [facility] Comment on above: Performed By: #### L 501.5200, L500.2500, L501.2300 #### [facility] [address] [place], [address] MCV (RBC) [Entitic vol] 89.9 fL Normal 81-99 [facility] Comment on above: Performed By: #### L 501.5200, L500.2500, L501.2300 #### [facility] [address] [place], [address] Monocytes/100 WBC (Bld) 8.3 % Normal 0-10 [facility] Comment on above: Performed By: #### L 501.5200, L500.2500, L501.2300 #### [facility] [address] [place], [address] Neutrophils/100 WBC (Bld) 60.0 % Normal 47-70 [facility] Comment on above: Performed By: #### L 501.5200, L500.2500, L501.2300 #### [facility] [address] [place], [address] Nucleated RBC (Bld) [#/Vol] 0 10*3/uL Normal 0-5 [facility] Comment on above: Performed By: #### L 501.5200, L500.2500, L501.2300 #### [facility] [address] [place], [address] Platelet mean volume (Bld) [Entitic vol] 9.7 fL Normal 6.2-12.0 [facility] Comment on above: Performed By: #### L 501.5200, L500.2500, L501.2300 #### [facility] [address] [place], [address] Platelets (Bld) [#/Vol] 399 10*3/uL Normal 150-450 [facility] Comment on above: Performed By: #### L 501.5200, L500.2500, L501.2300 #### [facility] [address] [place], [address] RBC (Bld) [#/Vol] 3.48 10*6/uL Low 4.2-5.4 [facility] Comment on above: Performed By: #### L 501.5200, L500.2500, L501.2300 #### [facility] [address] [place], [address] RDW SD 50.4 fl High 35.1-43.9 [facility] Comment on above: Performed By: #### L 501.5200, L500.2500, L501.2300 #### [facility] [address] [place], [address] WBC (Bld) [#/Vol] 6.0 10*3/uL Normal 4.4-11.0 [facility] Comment on above: Performed By: #### L 501.5200, L500.2500, L501.2300 #### [facility] [address] [place], [address] Eosinophil percentageOrdered By: Oumou De La Rosa on 11-07-2024 Eosinophils/100 WBC (Bld) 1.5 % 0-5 [facility] Erythrocyte distribution wid th ratioOrdered By: Oumou De La Rosa on 11-07-2024 Erythrocyte distribution width (RBC) [Ratio] 15.4 % High 11.6-14.6 [facility] Erythrocyte distribution wid th standard deviationOrdered By: Oumou De La Rosa on 11-07-2024 Erythrocyte distribution width (RBC) [Entitic vol] 50.4 fL High 35.1-43.9 [facility] Gastroenterology Visit Repor ton 11-07-2024 Gastroenterology Visit Report [facility] [address] [place] [address] OFFICE VISIT Date of Service: 11/07/24 MR#: [id number] Acct: [id number] Name: NESSA AMARAL Rep #: [id number] : 1960 Provider: KARLA Riley Age/Sex: 64/F Location: [facility] Status: Signed Intake Vital Signs 10/29/24 12:14 Height 5 ft 4 in Weight: 139 lb 8.842 oz Intake Visit Reasons: Hospital FU Chief Complaint: hospital f/u Allergies No Known Allergies Allergy (Verified 02/16/24 08:03) Nurse's Note: OV 11.07.24 Pt here for hospital f/u. Reports she is feeling well and has no complaints. Reports a formed BM every other day. Denies blood in stool, abdominal pain, and n/v/c/d. Pt had gallbladder removed many years ago. Reports prior hx of colonoscopy. PFSH Medical History Alcohol abuse Leg pain Surgical History H/O dilation and curettage Hx of cholecystectomy Social History household members: none current occupational status: employed current occupation: [employer] pets and animals: Yes (1) pets and animals: cat(s) Smoking Status: Current every day smoker tobacco type: cigarettes Tobacco: How many years used: 40 alcohol intake: current alcohol intake frequency: 3 or more drinks per day substance use type: does not use and former substance user caffeine: Yes (1) Type: carbonated beverages what type of physical activity do you participate in: none frequency: 1-2 times per week do you feel safe at home: Yes HPI HPI Chief Complaint: hospital f/u Details: NESSA AMARAL, is a 64 F who presents to the office today for hospital f/u. [facility] admission 10.26.24-10.29.24 after presentation to the ED with 5-10 episodes of loose stool that was dark in color. Pt was sob and lightheaded therefore EMS called. Blood work revealing hemoglobin of 3.3. Pt has hx of drinking 3-4 beers daily. Underwent EGD showing Mallery-Esperanza tear and a spurting duodenal ulcer. Transfused a total of 4 units during her stay. Hemoglobin at discharge stable at 8.6 EGD 10.26.24; - Nida-Cabrera tear. Treated with argon plasma coagulation (APC). - No gross lesions in the entire stomach. - Spurting duodenal ulcer with a visible vessel. Treatment not successful. Treated with a heater probe. Treated with argon plasma coagulation (APC). Clips were placed. 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 - No specimens collected. OV 11.07.24 Pt has been doing well since her discharge. She is having no GI symptoms. She is no longer drinking alchol but is still working on smoking cessation. She is feeling a little depressed and anxious since her discharge as she processes the events that led her there. ROS Const Constitutional: No fatigue, fever(s) or weight change ENT ENT: No difficulty swallowing Gastro GI: No abdominal pain, belching, bloating, change in bowel habits, change in stool character, coffee ground emesis, constipation, cramping, diarrhea, heartburn, difficulty swallowing, feeling full early, excessive flatus, incontinent of stools, Vomiting blood/hematemesis, Blood in stool, loose stools, Black,tarry stools, nausea/dyspepsia, pain with swallowing, vomiting or other Musc Musculoskeletal: Positive for back pain, Arthritis and leg pain at night; No joint pain Skin Skin: No yellowing of the eye or itchy eyes Psych Psychiatric: No anxiety and No depression Endo Endocrine: No fatigue or weight change Aller/Imm Allergy/Immunologic: No itchy eyes Viraj/Lymp Hematologic/Lymphatic: No easy bleeding or easy bruising Exam Const General: cooperative and comfortable Nutritional Appearance: average body habitus and well nourished HENMT Head: normal to inspection Ears: hearing grossly normal bilaterally Nose: external nose normal Face and sinus: normal facial exam Mouth: oral mucosae normal Throat: posterior oropharynx normal Eyes General: appearance normal, both eyes and all related structures Neck Neck: normal visual inspection Chest Chest palpation inspection: normal inspection of the chest Resp Effort Inspection: normal respiratory effort Cardio Palpation: normal PMI Rate: regular rate Rhythm: regular rhythm GI Inspection: normal to inspection Auscultation: normal bowel sounds Percussion: normal to percussion Palpation: no hepatosplenomegaly Skin General: no rashes or lesions noted Neuro General: patient alert Extrem General: normal to inspection Psych Affect: normal affect Assessment and Plan Assessment and Plan (1) Duodenal ulcer: Status: Acute (2) Anemia: Status: Acute Plan: This is a 64 yo female pt [facility] today [facility]more [facility] not included)... Normal [facility] Hematocrit Auto (Bld) [Volum e fraction]Ordered By: Oumou De La Rosa on 11-07-2024 Hematocrit (Bld) [Volume fraction] 31.3 % Low 37-47 [facility] Hemoglobin measurementOrdere d By: Oumou De La Rosa on 11-07-2024 Hemoglobin (Bld) [Mass/Vol] 10.1 g/dL Low 12.0-15.0 [facility] Immature granulocytes/100 WB C Auto (Bld)Ordered By: Oumou De La Rosa on 11-07-2024 Immature granulocytes/100 WBC (Bld) 0.500 % 0.0-0.9 [facility] Comment on above: IG% - Immature Granu locytes (promyelocytes, myelocytes and metamyelocytes) > 1% indicates that a LEFT SHIFT is Present. Lymphocytes Auto (Unsp spec) [#/Vol]Ordered By: Oumou De La Rosa on 11-07-2024 Lymphocytes (Bld) [#/Vol] 1.71 10*3/uL 0.83-4.51 [facility] Lymphocytes/100 WBC Auto (Un sp spec)Ordered By: Oumou De La Rosa on 11-07-2024 Lymphocytes/100 WBC (Bld) 28.5 % 19-41 [facility] MCV (mean corpuscular volume ) determinationOrdered By: Oumou De La Rosa on 11-07-2024 MCV (RBC) [Entitic vol] 89.9 fL 81-99 [facility] Mean corpuscular hemoglobin (MCH) determinationOrdered By: Oumou De La Rosa on 11-07-2024 MCH (RBC) [Entitic mass] 29.0 pg 27.0-32.0 [facility] Mean corpuscular hemoglobin concentration (MCHC) determinationOrdered By: Oumou De La Rosa on 11-07-2024 MCHC (RBC) [Mass/Vol] 32.3 g/dL 32-36 [facility] Mean platelet volume determi nationOrdered By: Oumou De La Rosa on 11-07-2024 Platelet mean volume (Bld) [Entitic vol] 9.7 fL 6.2-12.0 [facility] Monocyte percentageOrdered B y: Oumou De La Rosa on 11-07-2024 Monocytes/100 WBC (Bld) 8.3 % 0-10 [facility] Neutrophil percentageOrdered By: Oumou De La Rosa on 11-07-2024 Neutrophils/100 WBC (Bld) 60.0 % 47-70 [facility] Nucleated red blood cell per centageOrdered By: Oumou De La Rosa on 11-07-2024 Nucleated RBC/100 WBC (Bld) [Ratio] 0 % 0-5 [facility] Platelet countOrdered By: Akosua De La Rosa on 11-07-2024 Platelets (Bld) [#/Vol] 399 10*3/uL 150-450 [facility] RBC Auto (Bld) [#/Vol]Ordere d By: Oumou De La Rosa on 11-07-2024 RBC (Bld) [#/Vol] 3.48 10*6/uL Low 4.2-5.4 [facility] White blood cell (WBC) count Ordered By: Oumou De La Rosa on 11-07-2024 WBC (Bld) [#/Vol] 6.0 10*3/uL 4.4-11.0 [facility] Absolute neutrophil countOrd ered By: Jose Antonio Jack on 2024 Neutrophils (Bld) [#/Vol] 4.0 10*3/uL 2.0-7.7 [facility] Basic Metabolic Profile (BMP )on 2024 BUN/CRE 8.7 RATIO Low 10-20 [facility] Comment on above: Performed By: #### L 501.5200, L500.2500, L501.2300 #### [facility] [address] [place], [address] CA,Total 7.9 mg/dL Low 8.5-10.1 [facility] Comment on above: Performed By: #### L 501.5200, L500.2500, L501.2300 #### [facility] [address] [place], [address] ECRCL 85.73 ml/min Normal [facility] Comment on above: Performed By: #### L 501.5200, L500.2500, L501.2300 #### [facility] [address] [place], [address] EST GFR - AA 136 mL/min Normal >60 [facility] Comment on above: Result Comment: Afri can Armenian GFR Calc Performed By: #### L 501.5200, L500.2500, L501.2300 #### [facility] [address] [place], [address] GAP 4 Low 5-15 [facility] Comment on above: Performed By: #### L 501.5200, L500.2500, L501.2300 #### [facility] [address] [place], [address] GFR/1.73 sq M.predicted among non-blacks MDRD (S/P/Bld) [Vol rate/Area] 113 mL/min/{1.73_m2} Normal >60 [facility] Comment on above: Result Comment: Non- GFR Calc Performed By: #### L 501.5200, L500.2500, L501.2300 #### [facility] [address] [place], [address] Basophil percentageOrdered B y: Jose Antonio Jack on 2024 Basophils/100 WBC (Bld) 0.5 % 0-1 [facility] Blood urea nitrogen (BUN)/cr eatinine ratioOrdered By: Jose Antonio Jcak on 2024 Urea nitrogen/Creatinine [Mass ratio] 8.7 mg/mg Low 10-20 [facility] CBC W/Diff, Automatedon 10-17 PATH REV Reviewed Normal [facility] Comment on above: Result Comment: Leuk ocytosis. SEVERE Macrocytic anemia. Clinical correlation necessary. Sarath Alamo M.D. 10/29/24 AMENDED REPORT 10/29/24 0941 PATH REV previously reported as: February Performed By: #### L 500.2500, L100.0100 #### [facility] [address] [place], [address] Absolute Lymph 1.79 X10 3/uL Normal 0.83-4.51 [facility] Comment on above: Performed By: #### L 100.0100, L500.4050 #### [facility] [address] [place], [address] Absolute Neut 4.0 X10 3/uL Normal 2.0-7.7 [facility] Comment on above: Performed By: #### L 100.0100, L500.4050 #### [facility] [address] [place], [address] Basophils/100 WBC (Bld) 0.5 % Normal 0-1 [facility] Comment on above: Performed By: #### L 100.0100, L500.4050 #### [facility] [address] [place], [address] Eosinophils/100 WBC (Bld) 3.2 % Normal 0-5 [facility] Comment on above: Performed By: #### L 100.0100, L500.4050 #### [facility] [address] [place], [address] Erythrocyte distribution width (RBC) [Ratio] 17.1 % High 11.6-14.6 [facility] Comment on above: Performed By: #### L 100.0100, L500.4050 #### [facility] [address] [place], [address] Hematocrit (Bld) [Volume fraction] 25.7 % Low 37-47 [facility] Comment on above: Performed By: #### L 100.0100, L500.4050 #### [facility] [address] [place], [address] Hemoglobin (Bld) [Mass/Vol] 8.4 g/dL Low 12.0-15.0 [facility] Comment on above: Performed By: #### L 100.0100, L500.4050 #### [facility] [address] [place], [address] IG% 0.900 Normal 0.0-0.9 [facility] Comment on above: Result Comment: IG% - Immature Granulocytes (promyelocytes, myelocytes and metamyelocytes) > 1% indicates that a LEFT SHIFT is Present. Performed By: #### L 100.0100, L500.4050 #### [facility] [address] [place], [address] Lymphocytes/100 WBC (Bld) 27.3 % Normal 19-41 [facility] Comment on above: Performed By: #### L 100.0100, L500.4050 #### [facility] [address] [place], [address] MCH (RBC) [Entitic mass] 28.8 pg Normal 27.0-32.0 [facility] Comment on above: Performed By: #### L 100.0100, L500.4050 #### [facility] [address] [place], [address] MCHC (RBC) [Mass/Vol] 32.7 g/dL Normal 32-36 [facility] Comment on above: Performed By: #### L 100.0100, L500.4050 #### [facility] [address] [place], [address] MCV (RBC) [Entitic vol] 88.0 fL Normal 81-99 [facility] Comment on above: Performed By: #### L 100.0100, L500.4050 #### [facility] [address] [place], [address] Monocytes/100 WBC (Bld) 7.5 % Normal 0-10 [facility] Comment on above: Performed By: #### L 100.0100, L500.4050 #### [facility] [address] [place], [address] Neutrophils/100 WBC (Bld) 60.6 % Normal 47-70 [facility] Comment on above: Performed By: #### L 100.0100, L500.4050 #### [facility] [address] [place], [address] Nucleated RBC (Bld) [#/Vol] 0.3 10*3/uL Normal 0-5 [facility] Comment on above: Performed By: #### L 100.0100, L500.4050 #### [facility] [address] [place], [address] Platelet mean volume (Bld) [Entitic vol] 11.2 fL Normal 6.2-12.0 [facility] Comment on above: Performed By: #### L 100.0100, L500.4050 #### [facility] [address] [place], [address] Platelets (Bld) [#/Vol] 150 10*3/uL Normal 150-450 [facility] Comment on above: Performed By: #### L 100.0100, L500.4050 #### [facility] [address] [place], [address] RBC (Bld) [#/Vol] 2.92 10*6/uL Low 4.2-5.4 [facility] Comment on above: Performed By: #### L 100.0100, L500.4050 #### [facility] [address] [place], [address] RDW SD 51.0 fl High 35.1-43.9 [facility] Comment on above: Performed By: #### L 100.0100, L500.4050 #### [facility] [address] [place], [address] WBC (Bld) [#/Vol] 6.6 10*3/uL Normal 4.4-11.0 [facility] Comment on above: Performed By: #### L 100.0100, L500.4050 #### [facility] [address] [place], [address] Carbon dioxide measurementOr dered By: Jose Antonio Jack on 2024 CO2 [Moles/Vol] 26.0 mmol/L Normal 21.0-32.0 [facility] Comment on above: Performed By: #### L 501.5200, L500.2500, L501.2300 #### [facility] [address] [place], [address] Chloride measurementOrdered By: Jose Antonio Jack on 2024 Chloride [Moles/Vol] 113 mmol/L High 98-107 [facility] Comment on above: Performed By: #### L 501.5200, L500.2500, L501.2300 #### [facility] [address] [place] [place], [address] Discharge Instructionon 10-17 Discharge Instruction [facility] Medical Records Department [address] [place] [address] Instructions for Home/Discharge Instructions 10/29/24 1112 MR#: [id number] Acct: [id number] Name: NESSA AMARAL Rep #: [id number] : 1960 64 From: Yusuf Glaser MD PCP: Dr. Shlomo Beasley DO Status:ADM IN Discharge Instructions Diet Discharge Diet: Light diet - advance as tolerated and Soft diet DC O2, CPAP, BIPAP needs Home O2 Discharge instructions: No Dressing / Incision Discharge Activity: Return to Normal Activity Weight Bearing Status: Weight bearing as tolerated Dressing / Incision Call your doctor if you observe: Fever of 101 or Higher, Coldness, Increased Pain, Numbness or Tingling, Change in Color, Inability to urinate, Inability to have a bowel movement, Using more than 1 pad per hour, Shortness of breath, Dizziness, Fainting spells, Swelling in the ankles, Chest pain, Prolonged hiccupping, Increased palpitations (irregular heartbeat) and Calf discomfort Follow Up Care When: IN 2 WEEKS Test Results: Test results from this visit will be discussed in further detail at your follow-up appointment, if applicable. Discharge Plan Admission Admit Date/Time: 10/26/24 09:14 Primary Reason for Your Visit: Severe anemia, upper GI bleed, alcohol dependence Attending Provider: Yusuf Glaser Primary Care Provider: Shlomo Beasley Consulting Providers: Jose Antonio Jack Discharge Orders/Prescriptions Prescriptions: New potassium, sodium phosphates 280-160-250 mg Powder In Packet 1 packet PO BID 3 Days Qty: 6 0RF thiamine HCl (vitamin B1) 100 mg Tablet 100 mg PO DAILYCM 30 Days Qty: 30 2RF pantoprazole 40 mg Tablet,Delayed Release (Dr/Ec) 40 mg PO BID 30 Days Qty: 60 2RF nicotine 21 mg/24 hr Patch 24 Hour 21 mg transdermal DAILY Qty: 28 0RF folic acid 1 mg Tablet 1 mg PO DAILY@0800 30 Days Qty: 30 4RF Continued timolol maleate 0.5 % drops 1 drp ophthalmic (eye) BID Referrals / Follow Up: Shlomo Beasley DO [Primary Care Provider] - FriendJt DO [Med Staff - Active Staff] - Within 2 Weeks (Follow-up in GI office with PA/NEONATAL DOCTOR) Disposition Disposition (needs filled in before D/C Order can be placed): Home, Self Care 10/29/24 1218 Yusuf Glaser MD CC: Dr. Jose Antonio Jack MD; Dr. Shlomo Beasley DO Signed Normal [facility] Eosinophil percentageOrdered By: Jose Antonio Jack on 2024 Eosinophils/100 WBC (Bld) 3.2 % 0-5 [facility] Erythrocyte distribution wid th ratioOrdered By: Jose Antonio Jack on 2024 Erythrocyte distribution width (RBC) [Ratio] 17.1 % High 11.6-14.6 [facility] Erythrocyte distribution wid th standard deviationOrdered By: Jose Antonio Jack on 2024 Erythrocyte distribution width (RBC) [Entitic vol] 51.0 fL High 35.1-43.9 [facility] Estimated glomerular filtrat ion rate (GFR) AmericanOrdered By: Jose Antonio Jack on 2024 Estimated GFR (MDRD) Amer 136 mL/min >60 [facility] Comment on above: GFR Calc Estimation of creatinine fausto aranceOrdered By: Jose Antonio Jack on 2024 Estimated Creatinine Clearance Calc 85.73 ml/min [facility] Glomerular filtration rate ( GFR) estimationOrdered By: Jose Antonio Jack on 2024 Estimated GFR (MDRD) Non-Af Amer 113 mL/min >60 [facility] Comment on above: Non- GFR Calc Glucose measurementOrdered B y: Jose Antonio Jack on 2024 Glucose [Mass/Vol] 86 mg/dL Normal 74-106 [facility] Comment on above: Performed By: #### L 501.5200, L500.2500, L501.2300 #### [facility] [address] [place] [address]. [place], [place], [id number] Hematocrit Auto (Bld) [Volum e fraction]Ordered By: Jose Antonio Jack on 2024 Hematocrit (Bld) [Volume fraction] 25.7 % Low 37-47 [facility] Hemoglobin measurementOrdere d By: Jose Antonio Jack on 2024 Hemoglobin (Bld) [Mass/Vol] 8.4 g/dL Low 12.0-15.0 [facility] Immature granulocytes/100 WB C Auto (Bld)Ordered By: Jose Antonio Jack on 2024 Immature granulocytes/100 WBC (Bld) 0.900 % 0.0-0.9 [facility] Comment on above: IG% - Immature Granu locytes (promyelocytes, myelocytes and metamyelocytes) > 1% indicates that a LEFT SHIFT is Present. Lymphocytes Auto (Unsp spec) [#/Vol]Ordered By: Jose Antonio Jack on 2024 Lymphocytes (Bld) [#/Vol] 1.79 10*3/uL 0.83-4.51 [facility] Lymphocytes/100 WBC Auto (Un sp spec)Ordered By: Jose Antonio Jack on 2024 Lymphocytes/100 WBC (Bld) 27.3 % 19-41 [facility] MCV (mean corpuscular volume ) determinationOrdered By: Jose Antonio Jack on 2024 MCV (RBC) [Entitic vol] 88.0 fL 81-99 [facility] Mean corpuscular hemoglobin (MCH) determinationOrdered By: Jose Antonio Jack on 2024 MCH (RBC) [Entitic mass] 28.8 pg 27.0-32.0 [facility] Mean corpuscular hemoglobin concentration (MCHC) determinationOrdered By: Jose Antonio Jack on 2024 MCHC (RBC) [Mass/Vol] 32.7 g/dL 32-36 [facility] Mean platelet volume determi nationOrdered By: Jose Antonio Jack on 2024 Platelet mean volume (Bld) [Entitic vol] 11.2 fL 6.2-12.0 [facility] Monocyte percentageOrdered B y: Jose Antonio Jack on 2024 Monocytes/100 WBC (Bld) 7.5 % 0-10 [facility] Neutrophil percentageOrdered By: Jose Antonio Jack on 2024 Neutrophils/100 WBC (Bld) 60.6 % 47-70 [facility] Nucleated red blood cell per centageOrdered By: Jose Antonio Jack on 2024 Nucleated RBC/100 WBC (Bld) [Ratio] 0.3 % 0-5 [facility] Platelet countOrdered By: Celestino Jack on 2024 Platelets (Bld) [#/Vol] 150 10*3/uL 150-450 [facility] Potassium measurementOrdered By: Jose Antonio Jack on 2024 Potassium [Moles/Vol] 3.5 mmol/L Normal 3.5-5.1 [facility] Comment on above: Performed By: #### L 501.5200, L500.2500, L501.2300 #### [facility] [address] [place], [address] RBC Auto (Bld) [#/Vol]Ordere d By: Jose Antonio Jack on 2024 RBC (Bld) [#/Vol] 2.92 10*6/uL Low 4.2-5.4 [facility] Serum anion gap measurementO rdered By: Jose Antonio Jack on 2024 Anion gap [Moles/Vol] 4 mmol/L Low 5-15 [facility] Serum or plasma calcium ben urement (mass/volume)Ordered By: Jose Antonio Jack on 2024 Calcium [Mass/Vol] 7.9 mg/dL Low 8.5-10.1 [facility] Serum or plasma creatinine m easurement (mass/volume)Ordered By: Jose Antonio Jack on 2024 Creatinine [Mass/Vol] 0.58 mg/dL Normal 0.55-1.02 [facility] Comment on above: The validity of the calculated GFR & GFRAA in patients over 70 years has not been determined. Clinical correlation is essential. Result Comment: The validity of the calculated GFR GFRAA in patients over 70 years has not been determined. Clinical correlation is essential. Performed By: #### L 501.5200, L500.2500, L501.2300 #### [facility] [address] [place], [address] Serum or plasma urea nitroge n measurement (mass/volume)Ordered By: Jose Antonio Jack on 2024 Urea nitrogen [Mass/Vol] 5 mg/dL Low 7-18 [facility] Comment on above: Performed By: #### L 501.5200, L500.2500, L501.2300 #### [facility] [address] [place], [address] Sodium levelOrdered By: Aj Jack on 2024 Sodium [Moles/Vol] 142 mmol/L Normal 136-145 [facility] Comment on above: Performed By: #### L 501.5200, L500.2500, L501.2300 #### [facility] [address] [place], [address] White blood cell (WBC) count Ordered By: Jose Antonio Jack on 2024 WBC (Bld) [#/Vol] 6.6 10*3/uL 4.4-11.0 [facility] Basic Metabolic Profile (BMP )on 10-28-2024 BUN/CRE 8.8 RATIO Low 10-20 [facility] Comment on above: Performed By: #### L 500.2500, L100.0100 #### [facility] [address] [place], [address] CA,Total 7.9 mg/dL Low 8.5-10.1 [facility] Comment on above: Performed By: #### L 500.2500, L100.0100 #### [facility] [address] [place], [address] Chloride [Moles/Vol] 116 mmol/L High 98-107 [facility] Comment on above: Performed By: #### L 500.2500, L100.0100 #### [facility] [address] [place], [address] CO2 [Moles/Vol] 25.0 mmol/L Normal 21.0-32.0 [facility] Comment on above: Performed By: #### L 500.2500, L100.0100 #### [facility] [address] [place], [address] Creatinine [Mass/Vol] 0.56 mg/dL Normal 0.55-1.02 [facility] Comment on above: Result Comment: The validity of the calculated GFR GFRAA in patients over 70 years has not been determined. Clinical correlation is essential. Performed By: #### L 500.2500, L100.0100 #### [facility] [address] [place], [address] ECRCL 89.95 ml/min Normal [facility] Comment on above: Performed By: #### L 500.2500, L100.0100 #### [facility] [address] [place], [address] EST GFR - AA 139 mL/min Normal >60 [facility] Comment on above: Result Comment: Afri can Armenian GFR Calc Performed By: #### L 500.2500, L100.0100 #### [facility] [address] [place], [address] GAP 4 Low 5-15 [facility] Comment on above: Performed By: #### L 500.2500, L100.0100 #### [facility] [address] [place], [address] GFR/1.73 sq M.predicted among non-blacks MDRD (S/P/Bld) [Vol rate/Area] 115 mL/min/{1.73_m2} Normal >60 [facility] Comment on above: Result Comment: Non- GFR Calc Performed By: #### L 500.2500, L100.0100 #### [facility] [address] [place], [address] Glucose [Mass/Vol] 100 mg/dL Normal 74-106 [facility] Comment on above: Result Comment: Fast ing Glucose result from 100 to 125 mg/dL suggests IMPAIRED HOMEOSTASIS per A.D.A. criteria. Performed By: #### L 500.2500, L100.0100 #### [facility] [address] [place], [address] Potassium [Moles/Vol] 3.7 mmol/L Normal 3.5-5.1 [facility] Comment on above: Performed By: #### L 500.2500, L100.0100 #### [facility] [address] [place], [address] Sodium [Moles/Vol] 145 mmol/L Normal 136-145 [facility] Comment on above: Performed By: #### L 500.2500, L100.0100 #### [facility] [address] [place], [address] Urea nitrogen [Mass/Vol] 5 mg/dL Low 7-18 [facility] Comment on above: Performed By: #### L 500.2500, L100.0100 #### [facility] [address] [place], [address] CBC W/Diff, Automatedon 10-17 Absolute Lymph 2.19 X10 3/uL Normal 0.83-4.51 [facility] Comment on above: Performed By: #### L 500.2500, L100.0100 #### [facility] [address] [place], [address] Absolute Neut 5.5 X10 3/uL Normal 2.0-7.7 [facility] Comment on above: Performed By: #### L 500.2500, L100.0100 #### [facility] [address] [place], [address] Basophils/100 WBC (Bld) 0.5 % Normal 0-1 [facility] Comment on above: Performed By: #### L 500.2500, L100.0100 #### [facility] [address] [place], [address] Eosinophils/100 WBC (Bld) 1.8 % Normal 0-5 [facility] Comment on above: Performed By: #### L 500.2500, L100.0100 #### [facility] [address] [place], [address] Erythrocyte distribution width (RBC) [Ratio] 17.1 % High 11.6-14.6 [facility] Comment on above: Performed By: #### L 500.2500, L100.0100 #### [facility] [address] [place], [address] Hematocrit (Bld) [Volume fraction] 25.6 % Low 37-47 [facility] Comment on above: Performed By: #### L 500.2500, L100.0100 #### [facility] [address] [place], [address] Hemoglobin (Bld) [Mass/Vol] 8.6 g/dL Low 12.0-15.0 [facility] Comment on above: Performed By: #### L 500.2500, L100.0100 #### [facility] [address] [place], [address] IG% 1.500 High 0.0-0.9 [facility] Comment on above: Result Comment: IG% - Immature Granulocytes (promyelocytes, myelocytes and metamyelocytes) > 1% indicates that a LEFT SHIFT is Present. Performed By: #### L 500.2500, L100.0100 #### [facility] [address] [place], [address] Lymphocytes/100 WBC (Bld) 25.2 % Normal 19-41 [facility] Comment on above: Performed By: #### L 500.2500, L100.0100 #### [facility] [address] [place], [address] MCH (RBC) [Entitic mass] 29.3 pg Normal 27.0-32.0 [facility] Comment on above: Performed By: #### L 500.2500, L100.0100 #### [facility] [address] [place], [address] MCHC (RBC) [Mass/Vol] 33.6 g/dL Normal 32-36 [facility] Comment on above: Performed By: #### L 500.2500, L100.0100 #### [facility] [address] [place], [address] MCV (RBC) [Entitic vol] 87.1 fL Normal 81-99 [facility] Comment on above: Performed By: #### L 500.2500, L100.0100 #### [facility] [address] [place], [address] Monocytes/100 WBC (Bld) 8.0 % Normal 0-10 [facility] Comment on above: Performed By: #### L 500.2500, L100.0100 #### [facility] [address] [place], [address] Neutrophils/100 WBC (Bld) 63.0 % Normal 47-70 [facility] Comment on above: Performed By: #### L 500.2500, L100.0100 #### [facility] [address] [place], [address] Nucleated RBC (Bld) [#/Vol] 1.6 10*3/uL Normal 0-5 [facility] Comment on above: Performed By: #### L 500.2500, L100.0100 #### [facility] [address] [place], [address] Platelet mean volume (Bld) [Entitic vol] 11.0 fL Normal 6.2-12.0 [facility] Comment on above: Performed By: #### L 500.2500, L100.0100 #### [facility] [address] [place], [address] Platelets (Bld) [#/Vol] 114 10*3/uL Low 150-450 [facility] Comment on above: Performed By: #### L 500.2500, L100.0100 #### [facility] [address] [place], [address] RBC (Bld) [#/Vol] 2.94 10*6/uL Low 4.2-5.4 [facility] Comment on above: Performed By: #### L 500.2500, L100.0100 #### [facility] [address] [place], [address] RDW SD 53.2 fl High 35.1-43.9 [facility] Comment on above: Performed By: #### L 500.2500, L100.0100 #### [facility] [address] [place], [address] WBC (Bld) [#/Vol] 8.7 10*3/uL Normal 4.4-11.0 [facility] Comment on above: Performed By: #### L 500.2500, L100.0100 #### [facility] [address] [place], [address] Basic Metabolic Profile (BMP )on 10-27-2024 BUN/CRE 15.2 RATIO Normal 10-20 [facility] Comment on above: Performed By: #### L 501.5200, L500.2500, L501.2300 #### [facility] [address] [place], [address] CA,Total 8.0 mg/dL Low 8.5-10.1 [facility] Comment on above: Performed By: #### L 501.5200, L500.2500, L501.2300 #### [facility] [address] [place], [address] Chloride [Moles/Vol] 114 mmol/L High 98-107 [facility] Comment on above: Performed By: #### L 501.5200, L500.2500, L501.2300 #### [facility] [address] [place], [address] CO2 [Moles/Vol] 22.0 mmol/L Normal 21.0-32.0 [facility] Comment on above: Performed By: #### L 501.5200, L500.2500, L501.2300 #### [facility] [address] [place], [address] Creatinine [Mass/Vol] 0.66 mg/dL Normal 0.55-1.02 [facility] Comment on above: Result Comment: The validity of the calculated GFR GFRAA in patients over 70 years has not been determined. Clinical correlation is essential. Performed By: #### L 501.5200, L500.2500, L501.2300 #### [facility] [address] [place], [address] ECRCL 76.32 ml/min Normal [facility] Comment on above: Performed By: #### L 501.5200, L500.2500, L501.2300 #### [facility] [address] [place], [address] EST GFR - AA 116 mL/min Normal >60 [facility] Comment on above: Result Comment: Afri can Armenian GFR Calc Performed By: #### L 501.5200, L500.2500, L501.2300 #### [facility] [address] [place], [address] GAP 3 Low 5-15 [facility] Comment on above: Performed By: #### L 501.5200, L500.2500, L501.2300 #### [facility] [address] [place], [address] GFR/1.73 sq M.predicted among non-blacks MDRD (S/P/Bld) [Vol rate/Area] 96 mL/min/{1.73_m2} Normal >60 [facility] Comment on above: Result Comment: Non- GFR Calc Performed By: #### L 501.5200, L500.2500, L501.2300 #### [facility] [address] [place], [address] Glucose [Mass/Vol] 115 mg/dL High 74-106 [facility] Comment on above: Result Comment: Fast ing Glucose result from 100 to 125 mg/dL suggests IMPAIRED HOMEOSTASIS per A.D.A. criteria. Performed By: #### L 501.5200, L500.2500, L501.2300 #### [facility] [address] [place], [address] Potassium [Moles/Vol] 4.0 mmol/L Normal 3.5-5.1 [facility] Comment on above: Performed By: #### L 501.5200, L500.2500, L501.2300 #### [facility] [address] [place], [address] Sodium [Moles/Vol] 138 mmol/L Normal 136-145 [facility] Comment on above: Performed By: #### L 501.5200, L500.2500, L501.2300 #### [facility] [address] [place], [address] Urea nitrogen [Mass/Vol] 10 mg/dL Normal 7-18 [facility] Comment on above: Performed By: #### L 501.5200, L500.2500, L501.2300 #### [facility] [address] [place], [address] CBC W/Diff, Automatedon 10-17 PLT EST SLT DEC Normal ADEQ [facility] Comment on above: Performed By: #### L 100.0100 #### [facility] [address] [place], [address] SMEAR COMMENT SCANNED Normal [facility] Comment on above: Performed By: #### L 100.0100 #### [facility] [address] [place], [address] HH, Hemoglobin AND Hematocri ton 10-27-2024 Hematocrit (Bld) [Volume fraction] 20.4 % Low 37-47 [facility] Comment on above: Performed By: #### L 100.0600 #### [facility] [address] [place], [address] Hemoglobin (Bld) [Mass/Vol] 7.0 g/dL Low 12.0-15.0 [facility] Comment on above: Performed By: #### L 100.0600 #### [facility] [address] [place], [address] Magnesiumon 10-27-2024 Magnesium [Mass/Vol] 1.8 mg/dL Normal 1.6-2.6 [facility] Comment on above: Performed By: #### L 501.5200, L500.2500, L501.2300 #### [facility] [address] [place], [address] Magnesium measurementOrdered By: Jose Antonio Jack on 10-27-2024 Magnesium [Mass/Vol] 1.8 mg/dL 1.6-2.6 [facility] Manual differential comment Genaro (Bld) [Interp]Ordered By: Jose Antonio Jack on 10-27-2024 Differential Comment SCANNED [facility] Phosphoruson 10-27-2024 Phosphate [Mass/Vol] 1.7 mg/dL Low 2.5-4.9 [facility] Comment on above: Performed By: #### L 501.5200, L500.2500, L501.2300 #### [facility] [address] [place], [address] Phosphorus measurementOrdere d By: Jose Antonio Jack on 10-27-2024 Phosphorus Level 1.7 mg/dL Low 2.5-4.9 [facility] Platelets LM Ql (Bld)Ordered By: Jose Antonio Jack on 10-27-2024 Platelet Estimate SLT DEC ADEQ [facility] 12 Lead EKGon 10-26-2024 12 Lead EKG [facility] Cardiovascular Services [address] [place] [address] 12 Lead EKG 10/26/24 0713 MR#: [id number] Acct: [id number] Name: NESSA AMARAL Rep #: [id number] : 1960 63 From: Bernardino Cordero MD Attending Dr: Dr. Yusuf Glaser MD Status: ADM IN Ordering Dr: Daryn Paredes DO Date: 10/26/24 Location: CT3 Sex: F C Admitted: 10/26/24 Test Reason : DYSP Blood Pressure : */* mmHG Vent. Rate : 127 BPM Atrial Rate : 127 BPM P-R Int : 142 ms QRS Dur : 70 ms QT Int : 320 ms P-R-T Axes : 76 63 94 degrees QTcB Int : 465 ms Sinus tachycardia Marked ST abnormality, possible anterior subendocardial injury Abnormal ECG Confirmed by Bernardino Cordero ([id number]), editor producer JERONIMO EAGLE ([id number]) on 2024 10:17:33 AM Referred By: Confirmed By: Bernardino Cordero 10/29/24 1017 Date Bernardino Cordero MD CC: Dr. Shlomo Beasley DO; Dr. Yusuf Glaser MD; Daryn Paredes DO Signed Normal [facility] Alcohol, Blood (Medical)-Ser umon 10-26-2024 SERUM ETOH < 3.0 Normal [facility] Comment on above: Result Comment: The serum:whole blood ethanol ratio is approximately 1.14 and varies slightly with hematocrit. Medical Alcohol reference interval and critical value in non-tolerant individuals; 50 - 100 Impairment 100 Intoxication 100 - 250 Severe Poisoning 250 - 400 Deep/possible fatal coma Performed By: #### L 100.0600 #### [facility] [address] [place], [address] BRCon 10-26-2024 Normal [facility] Comment on above: Result Comment: [id number] ON RC TRANSFUSED 10/27/24 0853 [id number] ON RC TRANSFUSED 10/26/24 1359 Performed By: #### L 100.0600 #### [facility] [address] [place], [address] Result Comment: [id number] ON RC XM COMPATIBLE Performed By: #### L 100.0100, L500.4050 #### [facility] [address] [place], [address] Result Comment: [id number] ON RC TRANSFUSED 10/26/24 0850 [id number] ON RC TRANSFUSED 10/26/24 0821 Basic Metabolic Profile (BMP )on 10-26-2024 BUN/CRE 24.5 RATIO High 10-20 [facility] Comment on above: Performed By: #### L 500.2500, L100.0100 #### [facility] [address] [place], [address] CA,Total 8.0 mg/dL Low 8.5-10.1 [facility] Comment on above: Performed By: #### L 500.2500, L100.0100 #### [facility] [address] [place], [address] Chloride [Moles/Vol] 113 mmol/L High 98-107 [facility] Comment on above: Performed By: #### L 500.2500, L100.0100 #### [facility] [address] [place], [address] CO2 [Moles/Vol] 14.0 mmol/L Low 21.0-32.0 [facility] Comment on above: Performed By: #### L 500.2500, L100.0100 #### [facility] [address] [place], [address] Creatinine [Mass/Vol] 1.06 mg/dL High 0.55-1.02 [facility] Comment on above: Result Comment: The validity of the calculated GFR GFRAA in patients over 70 years has not been determined. Clinical correlation is essential. Performed By: #### L 500.2500, L100.0100 #### [facility] [address] [place], [address] ECRCL 47.52 ml/min Normal [facility] Comment on above: Performed By: #### L 500.2500, L100.0100 #### [facility] [address] [place], [address] EST GFR - AA 67 mL/min Normal >60 [facility] Comment on above: Result Comment: Afri can Armenian GFR Calc Performed By: #### L 500.2500, L100.0100 #### [facility] [address] [place], [address] GAP 13 Normal 5-15 [facility] Comment on above: Performed By: #### L 500.2500, L100.0100 #### [facility] [address] [place], [address] GFR/1.73 sq M.predicted among non-blacks MDRD (S/P/Bld) [Vol rate/Area] 56 mL/min/{1.73_m2} Low >60 [facility] Comment on above: Result Comment: Non- GFR Calc Performed By: #### L 500.2500, L100.0100 #### [facility] [address] [place], [address] Glucose [Mass/Vol] 226 mg/dL High 74-106 [facility] Comment on above: Result Comment: Gluc ose result greater than or equal to 200 mg/dL suggests DIABETES MELLITUS per A.D.A. criteria. Performed By: #### L 500.2500, L100.0100 #### [facility] [address] [place], [address] Potassium [Moles/Vol] 3.9 mmol/L Normal 3.5-5.1 [facility] Comment on above: Performed By: #### L 500.2500, L100.0100 #### [facility] [address] [place], [address] Sodium [Moles/Vol] 140 mmol/L Normal 136-145 [facility] Comment on above: Performed By: #### L 500.2500, L100.0100 #### [facility] [address] [place], [address] Urea nitrogen [Mass/Vol] 26 mg/dL High 7-18 [facility] Comment on above: Performed By: #### L 500.2500, L100.0100 #### [facility] [address] [place], [address] Bilirubin directOrdered By: Daryn Paredes on 10-26-2024 Bilirubin.direct [Mass/Vol] 0.05 mg/dL 0.00-0.30 [facility] Bilirubin, totalOrdered By: Daryn Paredes on 10-26-2024 Bilirubin [Mass/Vol] 0.20 mg/dL 0.20-1.00 [facility] Comment on above: For patients on eltr ombopag therapy, use of Dimension [place] TBIL is not recommended. CTA Abd/Pelvis W/WO Contrast on 10-26-2024 CTA Abd/Pelvis W/WO Contrast [facility] Imaging Services [address] [place] [address] CTA Abd/Pelvis W/WO Contrast MR#: [id number] Acct: [id number] Name: NESSA AMARAL Rep #: [id number] : 1960 F 63 From: [place] neri MD PCP: Dr. Shlomo Beasley DO Status: DIS IN Study: CTA Abd/Pelvis W/WO Contrast Date of Exam: 08/10 Exam# [id number] Ordering Dr: Daryn Paredes DO ADDENDUM by Dr. [place] Lim MD on 11/08/24 at 1113 ====== ADDENDUM ====== [id number] ADDENDUM report for billing purposes. 3-D post processing was performed as well. Electronically Signed: [place] Lim MD at 11:13 EST , 11/08/24 1113 Date cc: Dr. Shlomo Beasley DO; Daryn Paredes DO * Signed ADDENDUM by Dr. [place] Lim MD on 11/08/[address]/CTA Abd/Pelvis W/WO Contrast IMPRESSION: undefined 11/08/24 1120 Date cc: Dr. Shlomo Beasley DO; Daryn aPredes DO * Signed [id number] STUDY: CTA ABDOMEN AND PELVIS WITH CONTRAST REASON FOR EXAM: Female, 63 years old. GI bleed RADIATION DOSAGE (If Supplied By Facility): CTDIvol = ( 14.89 ) mGy, DLP = ( 429.22 ) mGycm TECHNIQUE: Transaxial images were obtained from the dome of the diaphragm to the symphysis pubis without oral contrast. IV 100mL Isovue-370 was administered. Sagittal and coronal images were reconstructed. Individualized dose optimization techniques were used for this CT. COMPARISON: Comparison is made with prior study dated July 26, 2013. FINDINGS: The visualized lung bases are unremarkable. The visualized portions of the heart are within normal limits. Normal liver. The patient is status post cholecystectomy. Mildly dilated common bile duct which is normal for the postcholecystectomy state. Normal spleen. Normal pancreas. Normal bilateral adrenal glands. Normal right kidney. Normal left kidney. There is a small hiatal hernia. Normal small intestine. Normal colon. The appendix is visualized and appears normal. Normal abdominal aorta. Normal inferior vena cava. Normal retroperitoneum. Normal urinary bladder. There is a 6.3 cm x 6.7 cm x 6 cm hypodense mass in the right lower quadrant. Correlation with a pelvic sonogram is recommended to rule out gynecological abnormality. There is a small umbilical hernia containing fat. There are degenerative changes of the visualized lumbar spine. CT/CTA Abd/Pelvis W/WO Contrast IMPRESSION: 6.3 cm x 6.7 cm x 6 cm hypodense mass in the right lower quadrant as described. Pelvic sonogram correlation recommended for further evaluation. Status post cholecystectomy. Electronically Signed: [place] Lim MD at 8:26 EST , CC: Dr. Shlomo Beasley DO; Daryn Paredes DO Sales Representative Facility Services: Signed Normal [facility] Chest 1 View (Portable)on Chest 1 View (Portable) [facility] Imaging Services [address] [place], [place] [address] Chest 1 View (Portable) MR#: [id number] Acct: [id number] Name: NESSA AMARAL Rep #: [id number] : 1960 F 63 From: [place] neri MD PCP: Dr. Shlomo Beasley DO Status: [facility] ER Study: Chest 1 View (Portable) Date of Exam: 10/26/24 Exam# [id number] Ordering Dr: Daryn Paredes DO [id number] STUDY: X-RAY CHEST REASON FOR EXAM: Female, 63 years old. Dyspnea TECHNIQUE: Single AP portable view of the chest. COMPARISON: None. FINDINGS: EKG electrodes are seen. Mild degree of vascular congestion and possible early CHF. There is no demonstrated pleural abnormality. Normal size heart. Normal mediastinum and desiree. Normal visualized pulmonary arteries. Normal visualized aortic arch and descending thoracic aorta. Normal visualized thoracic spine. Normal visualized ribs, clavicles, and shoulders. There is no demonstrated abnormality of the visualized soft tissue structures of the upper abdomen. RAD/Chest 1 View (Portable) IMPRESSION: Mild degree of vascular congestion and possible early CHF. Electronically Signed: [place] Lim MD at 8:30 EST Reading Location ID and State: [facility] / [place] , Service support , CC: Dr. Shlomo Beasley DO; Daryn Paredes DO Sales Representative Facility Services: Signed Normal [facility] EGD Reporton 10-26-2024 EGD Report [facility] Medical Records Department [address] [place] [address] EGD Report MR#: [id number] Acct: [id number] Name: NESSA AMARAL Rep #: [id number] : 1960 63 From: Jt Walker DO PCP: Dr. Shlomo Beasley DO Status:ADM IN Patient Name: Nessa Amaral Procedure Date: 10/26/2024 3:32 PM Date of : 1960 Age: 63 Procedure: Upper GI endoscopy Indications: Melena, Recent gastrointestinal bleeding Providers: Jt Walker DO Medicines: Monitored Anesthesia Care Patient Profile: Patient has symptoms of acute epigastric abdominal pain. Complications: No immediate complications. Procedure: Pre-Anesthesia Assessment: - Prior to the procedure, a History and Physical was performed, and patient medications and allergies were reviewed. The patient is competent. The risks and benefits of the procedure and the sedation options and risks were discussed with the patient. All questions were answered and informed consent was obtained. Patient identification and proposed procedure were verified by the physician in the pre-procedure area. Mental Status Examination: alert and oriented. Airway Examination: normal oropharyngeal airway and neck mobility. Respiratory Examination: clear to auscultation. CV Examination: normal. Prophylactic Antibiotics: The patient does not require prophylactic antibiotics. Prior Anticoagulants: The patient has taken no anticoagulant or antiplatelet agents except for NSAID medication. ASA Grade Assessment: II - A patient with mild systemic disease. After reviewing the risks and benefits, the patient was deemed in satisfactory condition to undergo the procedure. The anesthesia plan was to use monitored anesthesia care (MAC). Immediately prior to administration of medications, the patient was re-assessed for adequacy to receive sedatives. The heart rate, respiratory rate, oxygen saturations, blood pressure, adequacy of pulmonary ventilation, and response to care were monitored throughout the procedure. The physical status of the patient was re-assessed after the procedure. After obtaining informed consent, the endoscope was passed under direct vision. Throughout the procedure, the patient's blood pressure, pulse, and oxygen saturations were monitored continuously. The Endoscope was introduced through the mouth, and advanced to the second part of duodenum. The upper GI endoscopy was accomplished without difficulty. Scope In: 3:43:23 PM Scope Out: 4:09:03 PM Total Procedure Duration Time 0 hours 25 minutes 40 seconds Findings: A 19 mm bleeding Nida-Cabrera tear with stigmata of recent bleeding was found. Coagulation for hemostasis using argon plasma at 0.3 liters/minute and 20 orozco was successful. Estimated blood loss was minimal. No gross lesions were noted in the entire examined stomach. One spurting cratered duodenal ulcer with a visible vessel was found in the duodenal bulb. The lesion was 20 mm in largest dimension. Coagulation for hemostasis using heater probe was unsuccessful. Coagulation for hemostasis using argon plasma at 0.5 liters/minute and 30 orozco was successful. To prevent bleeding post-intervention, two hemostatic clips were successfully placed. 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 There was no bleeding at the end of the procedure. Impression: - Nida-Cabrera tear. Treated with argon plasma coagulation (APC). - No gross lesions in the entire stomach. - Spurting duodenal ulcer with a visible vessel. Treatment not successful. Treated with a heater probe. Treated with argon plasma coagulation (APC). Clips were placed. 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 - No specimens collected. Recommendation: - Return patient to [facility] for [facility] care. - Clear liquid diet. - Continue present medications. Procedure Code(s): --- Professional --- 08494, Esophagogastroduodenos copy, flexible, transoral; with control of bleeding, any method CPT copyright 2021 [employer]. All rights reserved. The codes documented in this report are preliminary and upon outpatient coder review may be revised to meet current compliance requirements. Jt Walker DO 10/26/2024 4:15:27 PM This report has been signed electronically. Number of Addenda: 0 Note Initiated On: 10/26/2024 3:32 PM 10/26/24 1615 Date Jt Walker DO Cosigner Signature: Date (if indicated) CC: Dr. Shlomo Beasley DO; Jt Walker DO Date Dictated: 10/26/24 1532 Date Transcribed: Sales Representative Facility Services: REYNALDO Signed Normal [facility] Emergency Department Summary on 10-26-2024 Emergency Department Summary [facility] Medical Records Department [address] [place] [address] Emergency Department Summary 10/26/24 MR#: [id number] Acct: [id number] Name: NESSA AMARAL Rep #: [id number] : 1960 63 From: Daryn Paredes DO PCP: Dr. Shlomo Beasley DO Status:REG ER Location: ED ADDENDUM by Dr. Kiet Vicente MD on 10/26/24 at 0918 Took over care of this patient. Lactic acid is elevated likely due to poor peripheral delivery of oxygen given her hemoglobin of 3.3, this explains her low bicarb although her gap is within normal limits right now. She is given blood and octreotide and fluids. Resting tachycardia has improved, blood pressure has remained stable, she is maintained alertness. No gross bleeding or hematemesis clinically. EKG suspicious for diffuse subendocardial ischemia, likely demand. She is having no angina/pain. I will add a troponin onto her labs. INR 1.2. She is on no anticoagulants. Her stool was testing negative, this is probably a false negative. But if it truly is negative, she would have had to lose 10 g of hemoglobin in the past 11 months due to folate or thiamine deficiency with her slightly macrocytic anemia, or hemolysis which is ruled out given normal bilirubin. Discussed with GI doctor friend will be available to scope her today and agrees with ICU admission peer discussed with Dr. Jack hospitalist. 10/26/2418 Cosigner Signature (if applicable): cc: Dr. Shlomo Beasley, DO * Signed HPI History of Present Illness Chief Complaint: Weakness Informant: patient and EMS Narrative Narrative: Patient is a 63-year-old female who reports that she is only on eyedrops and otherwise takes no daily medications. She states she has had 5-10 episodes of loose stool/diarrhea since Tuesday. She states that it does appear dark in color. She denies any history of bleeding disorder or blood thinner use. She reports she also had 1-2 episodes of vomiting associated with this but denies any known sick contacts. She states has been no recent antibiotic use or travel outside the country. She states that she is getting progressively weaker as her symptoms have persisted and she is short of breath with even simple actions such as sitting up or trying to walk. Secondary to her weakness she fell this morning and could not get up and with the progressive/persistent diarrhea and increasing weakness EMS was called and she was brought in for evaluation Of note patient does states she drinks 3-4 beers per day. She states that she had an EGD roughly 10 years ago for esophageal stricture but denies any history of esophageal varices. She also denies any history of intestinal disorder such as diverticulosis IBS ulcerative colitis or Crohn's disease. [facility] Medical History Alcohol abuse Leg pain Home Medications ???Medication ???Instructions ???Recorded ???Last Taken ???Type NK 02/16/24 Unknown History Allergy/AdvReac Type Severity Reaction Status Date / Time No Known Allergies Allergy Verified 02/16/24 08:03 Surgical History H/O dilation and curettage Hx of cholecystectomy Social History household members: none current occupational status: employed current occupation: formerly [employer] pets and animals: Yes (1) pets and animals: cat(s) Smoking Status: Current every day smoker tobacco type: cigarettes Tobacco: How many years used: 40 alcohol intake: current alcohol intake frequency: 3 or more drinks per day substance use type: does not use and former substance user caffeine: Yes (1) Type: carbonated beverages what type of physical activity do you participate in: none frequency: 1-2 times per week do you feel safe at home: Yes ROS ROS ED Constitutional Constitutional ED: Denies chills or fever(s) Eyes Eyes: Denies blurry vision or change in vision ENT ENT ED: Denies sore throat Cardiovascular Cardiovascular: Reports racing heartbeat; Denies chest pain or palpitations Respiratory/Chest Respiratory/Chest: Denies cough or dyspnea Gastrointestinal Gastrointestinal: Reports diarrhea, melena, nausea and vomiting; Denies abdominal pain Genitourinary Genitourinary ED: Denies dysuria Musculoskeletal Musculoskeletal: Denies myalgias Integumentary Denies rash Neurologic Neurologic: Reports weakness; Denies headache(s) Hematologic/Lymphatic Hematologic/Lymphatic: Denies easy bleeding or easy bruising EXAM Physical Exam Const Vital Signs: 10/26/24 06:31 10/26/24 06:31 10/26/24 07:00 Temperature 98.7 F 98.6 F Temperature Source Oral Oral Pulse Rate 138 H 133 H Respiratory Rate 19 H 20 H Respiratory Effort Normal Non-Labored Respirator (more content not included)... Normal [facility]&P Exam - Hospitalist [facility] Medical Records Department [address] [place] [address] H P Exam - Hospitalist 10/26/24 0919 MR#: [id number] Acct: [id number] Name: NESSA AMARAL Rep #: [id number] : 1960 63 From: Jose Antonio Jack MD PCP: Dr. Shlomo Beasley, DO Status:REG ER Location: ED HPI - General General Date of Admission: 10/26/24 Date of Service: 10/26/24 Chief Complaint: Generalized weakness HPI Narrative NESSA AMARAL, is a 63 F who presents to with past medical history signal for chronic pain syndrome, chronic alcohol dependence who presented with generalized weakness. Patient admitted to daily use of alcohol. She also did states she has chronic pain for which she undergoes steroid injection however in view of her recent exacerbation patient was taking [id number] NSAIDs. She did develop black tarry stools days prior to her admission. In view of progressive generalized weakness patient presented to the emergency department. Patient was reported to be hypotensive and route to the hospital by the EMS squad however blood pressure had stabilized at the time of her admission. Hemoglobin was found to be 3.3 patient was typed and crossmatched started on Protonix drip octreotide and consultation placed to GI. Admitted to the intensive care unit for further management. [facility] Medical History Alcohol abuse Leg pain Home Medications ???Medication ???Instructions ???Recorded ???Last Taken ???Type NK 02/16/24 Unknown History Allergy/AdvReac Type Severity Reaction Status Date / Time No Known Allergies Allergy Verified 02/16/24 08:03 Surgical History H/O dilation and curettage Hx of cholecystectomy Social History household members: none current occupational status: employed current occupation: [employer] pets and animals: Yes (1) pets and animals: cat(s) Smoking Status: Current every day smoker tobacco type: cigarettes Tobacco: How many years used: 40 alcohol intake: current alcohol intake frequency: 3 or more drinks per day substance use type: does not use and former substance user caffeine: Yes (1) Type: carbonated beverages what type of physical activity do you participate in: none frequency: 1-2 times per week do you feel safe at home: Yes ROS ROS Narrative GENERAL: denies fever, chills, night sweats, HEENT: denies headache, sinus congestion, RESPIRATORY: dyspnea on exertion CARDIAC: denies chest pain, palpitations, orthopnea, PND GASTROINTESTINAL: , melena, GENITOURINARY: denies dysuria, urgency, frequency, heamaturia EXTREMITY: denies swelling MUSCULOSKELETAL: Chronic back pain NEUROLOGIC: denies focal numbness, weakness, tingling HEMATOLOGIC: denies easy bruising and/or hemorrhage INTEGUMENT: denies rashes PSYCHIATRIC: denies suicidal or homicidal ideation Vital Signs Vital Signs Vital Signs: 10/26/24 06:31 10/26/24 06:31 10/26/24 07:00 Temperature 98.7 F 98.6 F Temperature Source Oral Oral Pulse Rate 138 H 133 H Respiratory Rate 19 H 20 H Respiratory Effort Normal Non-Labored Respiratory Pattern Normal Blood Pressure 118/60 107/46 L Blood Pressure Mean 79 66 Blood Pressure Source Blood Pressure Position Blood Pressure Location Pulse Ox 97 100 Oxygen Delivery Method Room Air Room Air 10/26/24 08:00 10/26/24 08:25 10/26/24 08:35 Temperature 98.4 F 98.7 F Temperature Source Temporal Oral Pulse Rate 127 H 125 H 130 H Respiratory Rate 22 H 22 H 22 H Respiratory Effort Respiratory Pattern Blood Pressure 102/67 102/66 111/93 H Blood Pressure Mean 78 78 99 Blood Pressure Source Monitor Monitor Blood Pressure Position Semi-Fowlers Blood Pressure Location Right Arm Pulse Ox 100 100 100 Oxygen Delivery Method Room Air Room Air Room Air 10/26/24 08:44 10/26/24 08:45 10/26/24 08:56 Temperature 98.6 F 97.5 F L Temperature Source Oral Temporal Pulse Rate 123 H 118 H 120 H Respiratory Rate 22 H 22 H 24 H Respiratory Effort Respiratory Pattern Blood Pressure 99/70 103/70 103/70 Blood Pressure Mean 79 81 81 Blood Pressure Source Monitor Monitor Blood Pressure Position Left Lateral Blood Pressure Location Right Arm Pulse Ox 100 100 100 Oxygen Delivery Method Room Air Room Air 10/26/24 09:00 10/26/24 09:11 Temperature 97.8 F 97.8 F Temperature Source Temporal Temporal Pulse Rate 121 H 119 H Respiratory Rate 21 H 22 H Respiratory Effort Respiratory Pattern Blood Pressure 103/70 129/95 H Blood Pressure Mean 81 106 Blood Pressure Source Monitor Blood Pressure Position Left Lateral Blood Pressure Locat (more content not included)... Normal [facility] HH, Hemoglobin AND Hematocri ton 10-26-2024 Hematocrit (Bld) [Volume fraction] 22.7 % Low 37-47 [facility] Comment on above: Performed By: #### L 100.0600 #### [facility] [address] [place], [address] Hemoglobin (Bld) [Mass/Vol] 7.5 g/dL Low 12.0-15.0 [facility] Comment on above: Performed By: #### L 100.0600 #### [facility] [address] [place], [address] Hematocrit (Bld) [Volume fraction] 18.0 % Low 37-47 [facility] Comment on above: Performed By: #### L 500.2500, L100.0100 #### [facility] [address] [place], [address] Hemoglobin (Bld) [Mass/Vol] 6.1 g/dL Low 12.0-15.0 [facility] Comment on above: Performed By: #### L 500.2500, L100.0100 #### [facility] [address] [place], [address] International normalized rat io (INR) calculationOrdered By: Daryn Paredes on 10-26-2024 INR Coag (Bld) [Relative time] 1.2 {INR} [facility] - Chemistry and C hemistry - challengeOrdered By: Daryn Paredes on 10-26-2024 AST [Catalytic activity/Vol] 10 U/L Low 15-37 [facility] Lactic Acidon 10-26-2024 Lactate [Moles/Vol] 2.4 mmol/L Invalid Interpretation Code 0.4-1.9 [facility] Comment on above: Result Comment: Crit ical Result(s) Called at: 12:57:57 10/26/2024 by: Adriana Vanegas to Oumou Mcnair. Results read back by same. Performed By: #### L 500.2500, L100.0100 #### [facility] [address] [place], [address] Lactate [Moles/Vol] 7.8 mmol/L Invalid Interpretation Code 0.4-1.9 [facility] Comment on above: Order Comment: Y Result Comment: Crit ical Result(s) Called at: 08:35:42 10/26/2024 by: Adriana Vanegas to Ash Larson. Results read back by same. Performed By: #### L 100.0600 #### [facility] [address] [place], [address] Lactic acid measurementOrder ed By: Daryn Paredes on 10-26-2024 Lactate [Moles/Vol] 2.4 mmol/L High 0.4-2.0 [facility] Comment on above: Critical Result(s) C alled at: 12:57:57 10/26/2024 by: Adriana Vanegas to Oumou Mcnair. Results read back by same. Lipaseon 10-26-2024 Lipase [Catalytic activity/Vol] 85 U/L High 13-75 [facility] Comment on above: Result Comment: Plea se note: LIPASE revised reference range effective 23. New Lipase methodology. Expected to produce lower values than the previous assay method. NEW Reference Range: 13 - 75 U/L Performed By: #### L 500.2500, L100.0100 #### [facility] [address] [place], [address] Lipase measurementOrdered By : Daryn Paredes on 10-26-2024 Lipase [Catalytic activity/Vol] 85 U/L High 13-75 [facility] Comment on above: Please note:LIPASE r evised reference range effective 23. New Lipase methodology. Expected to produce lower values than the previous assay method. NEW Reference Range: 13 - 75 U/L Liver Profileon 10-26-2024 ALB Normal 3.2-5.0 [facility] Comment on above: Result Comment: DUPL ICATE ORDER Performed By: #### L 501.5200, L500.2500, L501.2300 #### [facility] [address] [place], [address] ALK P Normal 45-117 [facility] Comment on above: Result Comment: DUPL ICATE ORDER Performed By: #### L 501.5200, L500.2500, L501.2300 #### [facility] [address] [place], [address] ALT Normal 13-56 [facility] Comment on above: Result Comment: DUPL ICATE ORDER Performed By: #### L 501.5200, L500.2500, L501.2300 #### [facility] [address] [place], [address] AST Normal 15-37 [facility] Comment on above: Result Comment: DUPL ICATE ORDER Performed By: #### L 501.5200, L500.2500, L501.2300 #### [facility] [address] [place], [address] D BILI Normal 0.00-0.30 [facility] Comment on above: Result Comment: DUPL ICATE ORDER Performed By: #### L 501.5200, L500.2500, L501.2300 #### [facility] [address] [place], [address] T BILI Normal 0.20-1.00 [facility] Comment on above: Result Comment: DUPL ICATE ORDER Performed By: #### L 501.5200, L500.2500, L501.2300 #### [facility] [address] [place], [address] T PROT Normal 6.4-8.2 [facility] Comment on above: Result Comment: DUPL ICATE ORDER Performed By: #### L 501.5200, L500.2500, L501.2300 #### [facility] [address] [place], [address] Albumin [Mass/Vol] 2.4 g/dL Low 3.2-5.0 [facility] Comment on above: Performed By: #### L 500.2500, L100.0100 #### [facility] [address] [place], [address] ALK P 48 U/L Normal 45-117 [facility] Comment on above: Performed By: #### L 500.2500, L100.0100 #### [facility] [address] [place], [address] ALT [Catalytic activity/Vol] 8 U/L Low 13-56 [facility] Comment on above: Performed By: #### L 500.2500, L100.0100 #### [facility] [address] [place], [address] AST [Catalytic activity/Vol] 10 U/L Low 15-37 [facility] Comment on above: Performed By: #### L 500.2500, L100.0100 #### [facility] [address] [place], [address] Bilirubin [Mass/Vol] 0.20 mg/dL Normal 0.20-1.00 [facility] Comment on above: Result Comment: For patients on eltrombopag therapy, use of Dimension [place] TBIL is not recommended. Performed By: #### L 500.2500, L100.0100 #### [facility] [address] [place], [address] Bilirubin.direct [Mass/Vol] 0.05 mg/dL Normal 0.00-0.30 [facility] Comment on above: Performed By: #### L 500.2500, L100.0100 #### [facility] [address] [place], [address] Globulin (S) [Mass/Vol] 1.8 g/dL Low 2.2-4.2 [facility] Comment on above: Performed By: #### L 500.2500, L100.0100 #### [facility] [address] [place], [address] T PROT 4.2 g/dL Low 6.4-8.2 [facility] Comment on above: Performed By: #### L 500.2500, L100.0100 #### [facility] [address] [place], [address] Lower GI hemoglobin IA Ql (S tl)Ordered By: Daryn Paredes on 10-26-2024 Stool Occult Blood (JERRY) [facility] MR/CON.PCM.GIon 10-26-2024 MR/CON.PCM.GI [facility] Medical Records Department [address] [place] [address] Consultation - GI 10/26/24 1533 MR#: [id number] Acct: [id number] Name: NESSA AMARAL Rep #: [id number] : 1960 63 From: Jt Walker DO PCP: Dr. Shlomo Beasley, DO Status:ADM IN Location: ICU ICU02-1 HPI Consult Data Date of Consult: 10/26/24 HPI Narrative Reason for Consultation: GI bleed HPI Narrative: NESSA AMARAL, is a 63-year-old female who reports that she is only on eyedrops and otherwise takes no daily medications. She states she has had 5-10 episodes of loose stool/diarrhea since Tuesday. She states that it does appear dark in color. She denies any history of bleeding disorder or blood thinner use. She reports she also had 1-2 episodes of vomiting associated with this but denies any known sick contacts. She states has been no recent antibiotic use or travel outside the country. She states that she is getting progressively weaker as her symptoms have persisted and she is short of breath with even simple actions such as sitting up or trying to walk. Secondary to her weakness she fell this morning and could not get up and with the progressive/persistent diarrhea and increasing weakness EMS was called and she was brought in for evaluation Of note patient does states she drinks 3-4 beers per day. She states that she had an EGD roughly 10 years ago for esophageal stricture but denies any history of esophageal varices. She also denies any history of intestinal disorder such as diverticulosis IBS ulcerative colitis or Crohn's disease. Her hemoglobin was discovered to be 3.3 in the ED. [facility] Medical History Alcohol abuse Leg pain Home Medications ???Medication ???Instructions ???Recorded ???Last Taken ???Type timolol maleate 0.5 % eye drops 1 drp ophthalmic (eye) BID glaucoma 10/26/24 10/25/24 History Allergy/AdvReac Type Severity Reaction Status Date / Time No Known Allergies Allergy Verified 02/16/24 08:03 Surgical History H/O dilation and curettage Hx of cholecystectomy Social History household members: none current occupational status: employed current occupation: formerly [employer] pets and animals: Yes (1) pets and animals: cat(s) Smoking Status: Current every day smoker tobacco type: cigarettes Tobacco: How many years used: 40 alcohol intake: current alcohol intake frequency: 3 or more drinks per day substance use type: does not use and former substance user caffeine: Yes (1) Type: carbonated beverages what type of physical activity do you participate in: none frequency: 1-2 times per week do you feel safe at home: Yes ROS ROS Narrative GENERAL: denies fever, chills, night sweats, HEENT: denies headache, sinus congestion, RESPIRATORY: dyspnea on exertion CARDIAC: denies chest pain, palpitations, orthopnea, PND GASTROINTESTINAL: , melena, GENITOURINARY: denies dysuria, urgency, frequency, heamaturia EXTREMITY: denies swelling MUSCULOSKELETAL: Chronic back pain NEUROLOGIC: denies focal numbness, weakness, tingling HEMATOLOGIC: denies easy bruising and/or hemorrhage INTEGUMENT: denies rashes PSYCHIATRIC: denies suicidal or homicidal ideation Physical Exam Narrative GENERAL: cooperative HEENT: Atraumatic; normocephalic EYES; Anicteric, Normal Conjunctiva NECK; supple, normal thyroid, RESPIRATORY: Diminished to auscultation CARDIOVASCULAR: Regular S1 S2, GI: soft, normoactive bowel sounds, : No Renal angle tenderness; EXTREMITIES: No edema, no clubbing, MUSCULOSKELETAL: no muscle wasting NEURO: Awake; no lateralizing signs. SKIN: No Rash PSYCH; Flat affect Lab / Micro Data 10/26/24 12:15 10/26/24 06:23 Labs: Laboratory Results - last 24 hr 10/26/24 06:23: WBC 20.0 H, RBC 1.06 L, Hgb 3.3 L*, Hct 10.5 L, MCV 99.1 H, MCH 31.1, MCHC 31.4 L, RDW Std Deviation 43.8, RDW Coeff of Otilia 12.8, Plt Count 186, MPV 11.9, Immature Gran % (Auto) 2.200 H, Neut % (Auto) 66.6, Lymph % (Auto) 25.6, Hancock % (Auto) 5.5, Eos % (Auto) 0.1, Baso % (Auto) 0.0, Absolute Neuts (auto) 13.3 H, Absolute Lymphs (auto) 5.13 H, Nucleated RBC % 0.4, Differential Comment , Diff Path Review February, PT 15.0 H, INR 1.2, APTT 25.4, Sodium 140, Potassium 3.9, C hloride 113 H, Carbon Dioxide 14.0 L, Anion Gap 13, BUN 26 H, Creatinine 1.06 H, Estim Creat Clear Calc 47.52, Est GFR (MDRD) Af Amer 67, Est GFR (MDRD) Non-Af 56 L, BUN/Creatinine Ratio 24.5 H, G lucose 226 H, Calcium 8.0 L, Total Bilirubin 0.20, Direct Bilirubin 0.05, AST 10 L, ALT 8 L, Alkaline Phosphatase 48, Total Protein 4.2 L, Albumin 2.4 L, Globulin 1.8 L, Lipase 85 H 10/26/24 06:44: Blood Type O NEGATIVE, Antibody Screen NEGATIVE, Crossm (more content not included)... Normal [facility] MR/POSTOP.ANEon 10-26-2024 MR/POSTOP.ANE [facility] Medical Records Department [address] [place] [address] Anesthesia Postop Eval I 10/26/24 1647 MR#: [id number] Acct: [id number] Name: NESSA AMARAL Rep #: [id number] : 1960 63 From: Marcin Conn CRNA PCP: Dr. Shlomo Beasley, DO Status:ADM IN Y Race: C Location: ICU ICU02- Anesthesia: Postop Eval I Current Vital Signs Temperature: 97 F Pulse Rate: 85 Blood Pressure: 117/75 Respiratory Rate: 20 Pulse Ox: 100 Oxygen Delivery Method: Room Air Assessment Airway patent: Yes Spontaneous unlabored respirations: Yes Mental status: Awake and Calm nausea: No Vomiting: No Anesthesia Complication: No Fluid Hydration Crystalloid volume administer (ml): 30 Total IV fluid infused: 30 Progress Note Anesthesia document: Postop Eval 1 completed: Yes 10/26/241649 Date Marcin Conn ADMINISTRATIVE AND PROGRAM SPECIALIST Cosigner Signature: Date CC: Signed Normal [facility] MR/ADNVECZC1tv 10-26-2024 [facility] Medical Records Department [address] [place] [address] Anesthesia Postop Eval II 10/26/24 215 MR#: [id number] Acct: [id number] Name: NESSA AMARAL Rep #: [id number] : 1960 63 From: Landry Nicole MD PCP: Dr. Shlomo Beasley, DO Status:ADM IN Y Race: C Location: ICU ICU02- Anesthesia Postop Eval I Sum Postop Eval Completion status Anesthesia document: Postop Eval 1 completed: Yes Anesthesia Postop Eval I Summary Anesthesia Postop Eval I Summary: Anesthesia Postop Eval I: Assessment Summary Airway patent Yes 10/26/24 16:50 ADMINISTRATIVE AND PROGRAM SPECIALIST.[email or web address] Spontaneous unlabored Yes 10/26/24 16:50 ADMINISTRATIVE AND PROGRAM SPECIALIST.[email or web address] respirations Mental status Awake,Calm 10/26/24 16:50 ADMINISTRATIVE AND PROGRAM SPECIALIST.JBLOU nausea No 10/26/24 16:50 ADMINISTRATIVE AND PROGRAM SPECIALIST.JBLOU Vomiting No 10/26/24 16:50 ADMINISTRATIVE AND PROGRAM SPECIALIST.JBLOU Anesthesia Postop Eval I: Fluid Summary Crystalloid volume administer 30 10/26/24 16:50 ADMINISTRATIVE AND PROGRAM SPECIALIST.JBLOU (ml) Colloids volume administered ( ml) Blood Product volume administered (ml) Total IV fluid infused 30 10/26/24 16:50 ADMINISTRATIVE AND PROGRAM SPECIALIST.JBLOU Anesthesia Postop Eval I: Summary Notes Anesthesia Complication No 10/26/24 16:50 ADMINISTRATIVE AND PROGRAM SPECIALIST.JBLOU Anesthesia Complication Comment: Post-operative progress note Anesthesia: Postop Eval II Evaluation Mental status: Awake and Calm Pain Level: 0 nausea: No Vomiting: No Complications Anesthesia Complication: No 10/26/242150 Date Landry Nicole MD Cosigner Signature: Date CC: Signed Normal [facility] Partial Thromboplast Timeon 10-26-2024 aPTT Coag (Bld) [Time] 25.4 s Normal 24.1-36.2 [facility] Comment on above: Performed By: #### L 100.0600 #### [facility] [address] [place], [address] Pathologist review Genaro (Unsp spec) [Interp]Ordered By: Daryn Paredes on 10-26-2024 Differential Pathologist's Review Reviewed [facility] Comment on above: Previous reported re sult: Ginette mae Edited by: TAYLA on 10/29/24:0941Leukocytosis.SEVERE Macrocytic anemia.Clinical correlation necessary.Sarath Alamo M.D. 10/29/24 AMENDED REPORT 10/29/24 0941 PATH REV previously reported as: February foll Prothrombin Time w/INRon INR Normal [facility] Comment on above: Result Comment: DUPL ICATE ORDER Performed By: #### L 501.5200, L500.2500, L501.2300 #### [facility] [address] [place], [address] PROTIME Normal 11.7-14.9 [facility] Comment on above: Result Comment: DUPL ICATE ORDER Performed By: #### L 501.5200, L500.2500, L501.2300 #### [facility] [address] [place], [address] INR Coag (PPP) [Relative time] 1.2 {INR} Normal [facility] Comment on above: Performed By: #### L 100.0600 #### [facility] [address] [place], [address] PT Coag (PPP) [Time] 15.0 s High 11.7-14.9 [facility] Comment on above: Performed By: #### L 100.0600 #### [facility] [address] [place], [address] Prothrombin timeOrdered By: Daryn Paredes on 10-26-2024 PT Coag (PPP) [Time] 15.0 s High 11.7-14.9 [facility] Serum ethanol measurementOrd ered By: Daryn Paredes on 10-26-2024 Ethyl Alcohol Level < 3.0 mg/dL [facility] Comment on above: The serum:whole bloo d ethanol ratio is approximately 1.14and varies slightly with hematocrit. Medical Alcohol reference interval and critical value innon-tolerant individuals; 50 - 100 Impairment 100 Intoxication 100 - 250 Severe Poisoning 250 - 400 Deep/possible fatal coma Serum globulin measurementOr dered By: Daryn Paredes on 10-26-2024 Globulin (S) [Mass/Vol] 1.8 g/dL Low 2.2-4.2 [facility] Serum or plasma alanine angelo otransferase (ALT) measurementOrdered By: Daryn Paredes on 10-26-2024 ALT [Catalytic activity/Vol] 8 U/L Low 13-56 [facility] Serum or plasma albumin ben urement (mass/volume)Ordered By: Daryn Paredes on 10-26-2024 Albumin [Mass/Vol] 2.4 g/dL Low 3.2-5.0 [facility] Serum or plasma alkaline nicholas sphatase measurementOrdered By: Daryn Paredes on 10-26-2024 ALP [Catalytic activity/Vol] 48 U/L 45-117 [facility] Stool Occult Blood iFOBon STOB Negative Normal [facility] Comment on above: Performed By: #### L 500.2500, L100.0100 #### [facility] [address] [place], [place], [address] Total proteinOrdered By: Kaz Paredes on 10-26-2024 Protein [Mass/Vol] 4.2 g/dL Low 6.4-8.2 [facility] Type AND Screenon 10-26-2024 ABO and Rh group Nom (Bld) Blood group O Rh(D) negative Normal [facility] Comment on above: Order Comment: HGI Performed By: #### L 100.0600 #### [facility] [address] [place], [place], [address] aPTT Coag (PPP) [Time]Ordere d By: Daryn Paredes on 10-26-2024 aPTT Coag (Bld) [Time] 25.4 s 24.1-36.2 [facility] Office Visit Reporton 2023 Office Visit Report [facility] [address] [place] [address] OFFICE VISIT Date of Service: 07/20/24 MR#: [id number] Acct: [id number] Patient: NESSA AMARAL Rep #: [id number] : 1960 Provider: KARLA Anne Age/Sex: 63/F Location: [facility] Status: Signed Intake Vital Signs 02/16/24 08:03 Height 5 ft 4 in Weight: 132 lb 2 oz BMI 22.6 Intake Visit 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, [address] [place] [address] OFFICE VISIT Date of Service: 07/20/24 MR#: [id number] Acct: [id number] Name: NESSA AMARAL Rep #: [id number] : 1960 Provider: KARLA Anne Age/Sex: 63/F Location: [facility] Status: Signed Intake Vital Signs 02/16/24 08:03 Height 5 ft 4 in Weight: 132 lb 2 oz BMI 22.6 Intake Visit Reasons: PE NON DOT PHYSICAL/ [employer] Chief Complaint: Preemployment physical Allergies No Known Allergies Allergy (Verified 02/16/24 08:03) PFSH Medical History Leg pain Surgical History H/O dilation and curettage Hx of cholecystectomy Social History household members: none current occupational status: employed current occupation: [employer] pets and animals: Yes (1) pets and animals: cat(s) Smoking Status: Current every day smoker tobacco type: cigarettes Tobacco: How many years used: 40 alcohol intake: current alcohol intake frequency: 3 or more drinks per day substance use type: does not use and former substance user caffeine: Yes (1) Type: carbonated beverages what type of physical activity do you participate in: none frequency: 1-2 times per week do you feel safe at home: Yes HPI HPI Chief Complaint: Preemployment physical Details: NESSA AMARAL, is a 63 F who presents to the office today for preemployment physical. Please see correspond scanned documents with today's date. Office Procedures Physical Exam Coding PE Coding Pre-employment PE: Yes Coding Level of Care Code No Charge Diagnoses Encounter for pre-employment health screening examination Z02.1 Assessment and Plan Assessment and Plan (1) Encounter for pre-employment health screening examination: Status: Acute 07/20/24 1531 Date Jonas Jade Signature: Date (if applicable) CC: Normal [facility] HIP, UNI W/ Pelvis 2-3 Views on 07-09-2024 HIP, UNI W/ Pelvis 2-3 Views [facility] Services [address] [place] [address] [id number] HIP, UNI W/ Pelvis 2-3 Views MR#: [id number] Acct: [id number] Name: NESSA AMARAL Rep #: [id number] : 1960 F 63 From: Mayco guzman DO PCP: Dr. Shlomo Beasley, DO Status: REG CLI Study: HIP, UNI W/ Pelvis 2-3 Views Date of Exam: Exam# [id number] Ordering Dr: Angel Ring MD [id number] EXAM: XR RIGHT HIP WITH PELVIS WHEN PERFORMED, 2 OR 3 VIEWS CLINICAL INDICATION: PAIN TECHNIQUE: Two or three views of the right hip with pelvis when performed. COMPARISON: Abdomen, 07/23/[address] abdomen and pelvis, 07/26/2013. FINDINGS: BONES/JOINTS: Severe bilateral hip joint arthrosis with superior acetabular sclerosis and hypertrophy and superior joint space narrowing. Degenerative changes in the lower lumbar spine and symmetrically at the bilateral SI joints. No widening of the pubic symphysis. No acute fracture or dislocation. SOFT TISSUES: No significant abnormality. No soft tissue swelling or gas. RAD/HIP, UNI W/ Pelvis 2-3 Views IMPRESSION: No acute fracture or dislocation. Severe bilateral hip joint arthrosis. Electronically Signed: Mayco Wheatley DO at 21:13 EDT , CC: Dr. Angel Ring MD; Dr. Shlomo Beasley DO Sales Representative Facility Services: Signed Normal [facility] Absolute lymphocyte countOrd ered By: Shlomo Beasley on 12-12-2023 Lymphocytes Auto (Unsp spec) [#/Vol] 1.78 10*3/uL 0.83-4.51 [facility] Automated lymphocyte count a s percentage of total leukocytesOrdered By: Shlomo Beasley on 12-12-2023 Lymphocytes/100 WBC Auto (Unsp spec) 18.9 % 19-41 [facility] Basophil percentageOrdered B y: Shlomo Beasley on 12-12-2023 Basophils/100 WBC (Bld) 0.2 % 0-1 [facility] Bilirubin [Mass/Vol] 0.50 mg/dL 0.20-1.00 [facility] Comment on above: For patients on eltr ombopag therapy, use of Dimension [place] TBIL is not recommended. Chloride [Moles/Vol] 109 mmol/L 98-107 [facility] Cholesterol [Mass/Vol] 265 mg/dL <200 [facility] Comment on above: <200 mg/dL Desirable 200-240 mg/dL Borderline >240 mg/dL High Risk Eosinophils/100 WBC (Bld) 0.3 % 0-5 [facility] Glucose [Mass/Vol] 100 mg/dL 74-106 [facility] Comment on above: Fasting Glucose resu lt from 100 to 125 mg/dL suggests IMPAIRED HOMEOSTASIS per A.D.A. criteria. Hemoglobin (Bld) [Mass/Vol] 13.6 g/dL 12.0-15.0 [facility] Monocytes/100 WBC (Bld) 5.6 % 0-10 [facility] Neutrophils (Bld) [#/Vol] 7.0 10*3/uL 2.0-7.7 [facility] Neutrophils/100 WBC (Bld) 74.5 % 47-70 [facility] Potassium [Moles/Vol] 4.6 mmol/L 3.5-5.1 [facility] Protein [Mass/Vol] 7.0 g/dL 6.4-8.2 [facility] Sodium [Moles/Vol] 140 mmol/L 136-145 [facility] Triglyceride [Mass/Vol] 113 mg/dL <199 [facility] Comment on above: The drugs N-Acetylcy steine and Metamizole may falsely depress this assay.Serum Triglycerides Reference Interval Normal <150 mg/dL Borderline high 150 - 199 mg/dL High 200 - 499 mg/dL Very High > or = 500 mg/dL WBC (Bld) [#/Vol] 9.4 10*3/uL 4.4-11.0 [facility] Determination of erythrocyte mean corpuscular volume (MCV)Ordered By: Shlomo Beasley on 12-12-2023 MCV (RBC) [Entitic vol] 94.3 fL 81-99 [facility] Erythrocyte distribution wid th ratioOrdered By: Shlomo Beasley on 12-12-2023 Erythrocyte distribution width (RBC) [Ratio] 12.3 % 11.6-14.6 [facility] Erythrocyte distribution wid th standard deviationOrdered By: Shlomo Beasley on 12-12-2023 Erythrocyte distribution width (RBC) [Entitic vol] 43.2 fL 35.1-43.9 [facility] Hematocrit Auto (Bld) [Volum e fraction]Ordered By: Shlomo Beasley on 12-12-2023 Hematocrit (Bld) [Volume fraction] 41.5 % 37-47 [facility] Immature granulocytes/100 WB C Auto (Bld)Ordered By: Shlomo Beasley on 12-12-2023 Immature granulocytes/100 WBC (Bld) 0.500 % 0.0-0.9 [facility] Comment on above: IG% - Immature Granu locytes (promyelocytes, myelocytes and metamyelocytes) > 1% indicates that a LEFT SHIFT is Present. Laboratory - Chemistry and C hemistry - challengeOrdered By: Shlomo Beasley on 12-12-2023 Albumin/Globulin [Mass ratio] 1.3 {ratio} 0.9-2.4 [facility] ALP [Catalytic activity/Vol] 106 U/L 45-117 [facility] ALT [Catalytic activity/Vol] 28 U/L 13-56 [facility] Cholesterol in HDL [Mass/Vol] 80 mg/dL >40 [facility] Comment on above: The drugs N-Acetylcy steine and Metamizole may falsely depress this assay. Reference Range HDL <40 mg/dL Low HDL Cholesterol HDL >or= 60 mg/dL High HDL Cholesterol Cholesterol in LDL [Mass/Vol] 162 mg/dL 0-130 [facility] CO2 [Moles/Vol] 28.0 mmol/L 21.0-32.0 [facility] Globulin (S) [Mass/Vol] 3.1 g/dL 2.2-4.2 [facility] Urea nitrogen/Creatinine [Mass ratio] 31.0 mg/mg 10-20 [facility] - Hematology and Cell countsOrdered By: Shlomo Beasley on 12-12-2023 MCH (RBC) [Entitic mass] 30.9 pg 27.0-32.0 [facility] MCHC (RBC) [Mass/Vol] 32.8 g/dL 32-36 [facility] Nucleated RBC/100 WBC (Bld) [Ratio] 0 % 0-5 [facility] Platelet mean volume (Bld) [Entitic vol] 10.9 fL 6.2-12.0 [facility] Platelets (Bld) [#/Vol] 255 10*3/uL 150-450 [facility] No Panel InformationOrdered By: Shlomo Beasley on 12-12-2023 Estimated GFR (MDRD) Amer 97 mL/min >60 [facility] Comment on above: GFR Calc Estimated GFR (MDRD) Non-Af Amer 80 mL/min >60 [facility] Comment on above: Non- GFR Calc VLDL Cholesterol 23 mg/dL 5-40 [facility] RBC Auto (Bld) [#/Vol]Ordere d By: Shlomo Beasley on 12-12-2023 RBC (Bld) [#/Vol] 4.40 10*6/uL 4.2-5.4 [facility] Serum or plasma calcium ben urement (mass/volume)Ordered By: Shlomo Beasley on 12-12-2023 Calcium [Mass/Vol] 10.0 mg/dL 8.5-10.1 [facility] Serum or plasma creatinine m easurement (mass/volume)Ordered By: Shlomo Beasley on 12-12-2023 Creatinine [Mass/Vol] 0.77 mg/dL 0.55-1.02 [facility] Comment on above: The validity of the calculated GFR & GFRAA in patients over 70 years has not been determined. Clinical correlation is essential. Serum or plasma urea nitroge n measurement (mass/volume)Ordered By: Shlomo Beasley on 12-12-2023 Urea nitrogen [Mass/Vol] 24 mg/dL 7-18 [facility] Thin prep Papanicolaou smear with manual screeningOrdered By: Shlomo Beasley on 12-12-2023 Thin prep Papanicolaou smear with manual screening 3.9 g/dL 3.2-5.0 [facility] Thin prep Papanicolaou smear with manual screening 10 U/L 15-37 [facility] Thin prep Papanicolaou smear with manual screening 3 5-15 [facility] CNOVon 08-08-2023 CNOV Office Visit (UCWSTR ) NESSA AMARAL ([id number]) 1960 F NFR Date Time Provider Department 08/08/23 10:45 AM CONRADO QUINTANILLA UCWSTR During your visit today, we recorded the following information about you: Temperature Pulse Respiration Blood pressure 98.6 degrees 102/minute 21/minute 128/90 Weight 56.7 kg Conrado Quintanilla APRN.CNP 08/08/2023 11:10 AM Signed CC: Patient presents with: Cough: Coughing up mucus, sore throat, fatigue, chills x 1 day HPI: Nessa Amaral is a 62 year old female who [...] this time. Did tell patient to do [id number] medication for symptom management Potential red flag symptoms discussed with the patient. Reviewed appropriate action plan to take if red flag symptoms occur. Patient agreeable to treatment plan. Conrado Quintanilla APRN.PROTECTIVE SIGNAL REPAIRER HELPER Allergies As of Date: 08/08/2023 (No Known Allergies) Date Reviewed: 08/08/2023 Reviewed by: Denise Braswell MA - Fully Assessed Reason for Visit: Cough [28] Cmt: Coughing up mucus, sore throat, fatigue, chills x 1 day Primary Visit Diagnosis:Sore throat [J02.9] Order(s):STREP A MOLECULAR (POC) [4635585] Order #: [id number]. #:[id number] Prescriptions as of 08/08/2023 - Timolol Maleate 0.25 % dpet Use 1 Drop in both eyes once daily. Problem List As Of Date 08/08/2023 Noted Resolved Swelling of hand [M79.89] 08/18/2012 Abdominal pain, unspecified site [R10.9] 07/30/2013 Duodenitis [K29.80] 07/30/2013 Constipation [K59.00] 07/30/2013 Gallbladder polyp [K82.4] 08/28/2013 Duodenal ulcer [K26.9] 08/28/2013 Tobacco use disorder [F17.200] Letter Text Encounter Status:Closed by CONRADO QUINTANILLA on 08/08/23 Normal [facility] STREP A MOLECULAR (POC)on Procedural Control Valid [facility] Strep A (POCT) Negative Negative [facility] XR Ribs - right Views and Ch est PAon 02-25-2021 IMPRESSION: No acute displaced right rib fracture identified. Sales Representative Facility Services: MONICA Transcribe Date/Time: Feb 25 2021 4:51P Dictated by : KAROLYN OLIVA MD This examination was interpreted and the report reviewed and electronically signed by: KAROLYN OLIVA MD on Feb 25 2021 4:54PM [facility] DIVISION OF RADIOLOGY * * *Final Report* * * DATE OF EXAM: Feb 25 2021 4:48PM WOX [id number] - XR RIB/CHST 3V AP RIB/OBL/CHST R / PROCEDURE REASON: Rib injury * * * * Physician Interpretation * * * * CLINICAL INDICATION: Status post fall downstairs TECHNIQUE: 3 view right that are radiographic rib series with inclusion of a single frontal view of the chest for purposes of comparison/symmetry. COMPARISON: None FINDINGS: No acute displaced right rib fracture identified. Normal cardiomediastinal silhouette. No focal consolidation. No discernible pleural effusion or pneumothorax. DIVISION OF RADIOLOGY Provider, [facility] - 02/25/2021 * * *Final Report* * * DATE OF EXAM: Feb 25 2021 4:48PM WOX 5244 - XR RIB/CHST 3V AP RIB/OBL/CHST R / PROCEDURE REASON: Rib injury * * * * Physician Interpretation * * * * CLINICAL INDICATION: Status post fall downstairs TECHNIQUE: 3 view right that are radiographic rib series with inclusion of a single frontal view of the chest for purposes of comparison/symmetry. COMPARISON: None FINDINGS: No acute displaced right rib fracture identified. Normal cardiomediastinal silhouette. No focal consolidation. No discernible pleural effusion or pneumothorax. IMPRESSION IMPRESSION: No acute displaced right rib fracture identified. Sales Representative Facility Services: [facility] Transcribe Date/Time: Feb 25 2021 4:51P Dictated by : KAROLYN OLIVA MD This examination was interpreted and the report reviewed and electronically signed by: KAROLYN OLIVA MD on Feb 25 2021 4:54PM EST [facility] Radiology Study [facility]narrative[facility] X[facility] Ribs - right Views and Ch est PAOrdered By: Ccf Provider on 02-25-[address] [facility] Vital Signs Date Time Vital Sign Value Performing Clinician Faci lity 04-17-2025 16:32-0400 Body height 162.[address] Shlomo Beasley DO Work Phone: [facility] 04-17-2025 16:32-0400 Body temperature 98.1 [degF] Dr. Shlomo Beasley DO Work Phone: [facility] 04-17-2025 16:32-0400 Diastolic blood pressure 90 mm[Hg] Dr. Shlomo Beasley DO Work Phone: [facility] 04-17-2025 16:32-0400 Heart rate 84 /min Dr. Shlomo Beasley DO Work Phone: [facility] 04-17-2025 16:32-0400 Respiratory rate 17 /min Dr. Shlomo Beasley DO Work Phone: [facility] 04-17-2025 16:32-0400 SaO2% (BldA) [Mass fraction] 98 % Dr. Shlomo Beasley DO Work Phone: [facility] 04-17-2025 16:32-0400 Systolic blood pressure 136 mm[Hg] Dr. Shlomo Beasley DO Work Phone: [facility] 01-08-2025 15:58-0400 Body height 162.[address] Shlomo Beasley DO Work Phone: [facility] 01-08-2025 15:58-0400 Body mass index (BMI) [Ratio] 20.5 kg/m2 Dr. Shlomo Beasley DO Work Phone: [facility] 01-08-2025 15:58-0400 Body temperature 97.1 [degF] Dr. Shlomo Beasley DO Work Phone: [facility] 01-08-2025 15:58-0400 Body weight 54.[address] Shlomo Beasley DO Work Phone: [facility] 01-08-2025 15:58-0400 Diastolic blood pressure 80 mm[Hg] Dr. Shlomo Beasley DO Work Phone: [facility] 01-08-2025 15:58-0400 Heart rate 72 /min Dr. Shlomo Beasley DO Work Phone: [facility] 01-08-2025 15:58-0400 Respiratory rate 16 /min Dr. Shlomo Beasley DO Work Phone: [facility] 01-08-2025 15:58-0400 SaO2% (BldA) [Mass fraction] 99 % Dr. Shlomo Beasley DO Work Phone: [facility] 01-08-2025 15:58-0400 Systolic blood pressure 126 mm[Hg] Dr. Shlomo Beasley DO Work Phone: [facility] 2024 13:10-0500 Body temperature 98.2 [degF] Dr. Shlomo Beasley DO Work Phone: [facility] 2024 13:10-0500 Diastolic blood pressure 77 mm[Hg] Dr. Shlomo Beasley DO Work Phone: [facility] 2024 13:10-0500 Heart rate 86 /min Dr. Shlomo Beasley DO Work Phone: [facility] 2024 13:10-0500 Respiratory rate 16 /min Dr. Shlomo Beasley DO Work Phone: [facility] 2024 13:10-0500 SaO2% (BldA) [Mass fraction] 100 % Dr. Shlomo Beasley DO Work Phone: [facility] 2024 13:10-0500 Systolic blood pressure 130 mm[Hg] Dr. Shlomo Beasley DO Work Phone: [facility] 2024 12:14-0500 Body weight 63.[address] Shlomo Beasley DO Work Phone: [facility] 2024 05:27-0500 Body mass index (BMI) [Ratio] 23.8 kg/m2 Dr. Shlomo Beasley DO Work Phone: [facility] 10-27-2024 03:00-0500 Inhaled oxygen flow rate 2 L/min Dr. Shlomo Beasley DO Work Phone: [facility] 02-01-2024 09:59-0400 Body mass index (BMI) [Ratio] 21.6 kg/m2 Dr. John Carias Work Phone: [facility] 02-01-2024 09:59-0400 Body temperature 97.6 [degF] Dr. John Carias Work Phone: [facility] 02-01-2024 09:59-0400 Body weight 57.[address] John Carias Work Phone: [facility] 02-01-2024 09:59-0400 Diastolic blood pressure 74 mm[Hg] Dr. John Carias Work Phone: [facility] 02-01-2024 09:59-0400 Heart rate 74 /min Dr. John Carias Work Phone: [facility] 02-01-2024 09:59-0400 Respiratory rate 16 /min Dr. John Carias Work Phone: [facility] 02-01-2024 09:59-0400 SaO2% (BldA) [Mass fraction] 98 % Dr. John Carias Work Phone: [facility] 02-01-2024 09:59-0400 Systolic blood pressure 118 mm[Hg] Dr. John Carias Work Phone: [facility] 12-09-2023 08:52-0500 Body height 162.[address] John Carias Work Phone: [facility] 12-09-2023 08:52-0500 Body mass index (BMI) [Ratio] 21.9 kg/m2 Dr. John Carias Work Phone: [facility] 12-09-2023 08:52-0500 Body temperature 97.6 [degF] Dr. John Carias Work Phone: [facility] 12-09-2023 08:52-0500 Body weight 58.[address] John Carias Work Phone: 1(588)677-895263 [place] [address] 12-09-2023 08:52-0500 Diastolic blood pressure 74 mm[Hg] Dr. John Carias Work Phone: 5(038)653-434457 [place] [address] 12-09-2023 08:52-0500 Heart rate 80 /min Dr. John Carias Work Phone: 1(370)009-589863 [place] [address] 12-09-2023 08:52-0500 Respiratory rate 16 /min Dr. John Carisa Work Phone: 0(589)010-844563 [place] [address] 12-09-2023 08:52-0500 SaO2% (BldA) [Mass fraction] 98 % Dr. John Carias Work Phone: [facility] 12-09-2023 08:52-0500 Systolic blood pressure 120 mm[Hg] Dr. John Carias Work Phone: [facility] 12-06-2023 16:31-0500 Body mass index (BMI) [Ratio] 21.9 kg/m2 Dr. John Carias Work Phone: 0(034)765-457463 [place] [address] 12-06-2023 16:31-0500 Body temperature 98 [degF] Dr. John Carias Work Phone: [facility] 12-06-2023 16:31-0500 Body weight 58.[address] John Carias Work Phone: [facility] 12-06-2023 16:31-0500 Diastolic blood pressure 72 mm[Hg] Dr. John Carias Work Phone: [facility] 12-06-2023 16:31-0500 Heart rate 76 /min Dr. John Carias Work Phone: [facility] 12-06-2023 16:31-0500 Respiratory rate 16 /min Dr. John Carias Work Phone: [facility] 12-06-2023 16:31-0500 SaO2% (BldA) [Mass fraction] 98 % Dr. John Carias Work Phone: 5(639)726-536563 [place] [address] 12-06-2023 16:31-0500 Systolic blood pressure 112 mm[Hg] Dr. John Carias Work Phone: 5(876)042-393963 [place] [address] 12-02-2023 07:34-0500 Body height 162.[address] John Carias Work Phone: 7(106)114-812431 [address] 12-02-2023 07:34-0500 Body mass index (BMI) [Ratio] 22.1 kg/m2 Dr. John Carias Work Phone: 0(989)376-275163 [place] [address] 12-02-2023 07:34-0500 Body temperature 97.9 [degF] Dr. John Carias Work Phone: 6(962)673-555263 [place] [address] 12-02-2023 07:34-0500 Body weight 58.[address] John Carias Work Phone: 0(282)499-236963 [place] [address] 12-02-2023 07:34-0500 Diastolic blood pressure 92 mm[Hg] Dr. John Carias Work Phone: [facility] 12-02-2023 07:34-0500 Heart rate 72 /min Dr. John Carias Work Phone: 6(909)585-990563 [place] [address] 12-02-2023 07:34-0500 Respiratory rate 16 /min Dr. John Carias Work Phone: [facility] 12-02-2023 07:34-0500 SaO2% (BldA) [Mass fraction] 99 % Dr. John Carias Work Phone: [facility] 12-02-2023 07:34-0500 Systolic blood pressure 154 mm[Hg] Dr. John Carias Work Phone: [facility] 11-18-2023 07:28-0500 Body mass index (BMI) [Ratio] 21.8 kg/m2 Dr. John Carias Work Phone: [facility] 11-18-2023 07:28-0500 Body temperature 98 [degF] Dr. John Carias Work Phone: [facility] 11-18-2023 07:28-0500 Body weight 57.[address] John Carias Work Phone: [facility] 11-18-2023 07:28-0500 Diastolic blood pressure 80 mm[Hg] Dr. John Carias Work Phone: [facility] 11-18-2023 07:28-0500 Heart rate 71 /min Dr. John Carias Work Phone: [facility] 11-18-2023 07:28-0500 Respiratory rate 16 /min Dr. John Carias Work Phone: [facility] 11-18-2023 07:28-0500 SaO2% (BldA) [Mass fraction] 99 % Dr. John Carias Work Phone: [facility] 11-18-2023 07:28-0500 Systolic blood pressure 134 mm[Hg] Dr. John Carias Work Phone: [facility] 08-08-2023 10:39-0400 Body temperature 98.6 [degF] Conrado Quintanilla APRN.PROTECTIVE SIGNAL REPAIRER HELPER Work Phone: [facility] 08-08-2023 10:39-0400 Body weight 56.7 kg Conrado Quintanilla APRN.PROTECTIVE SIGNAL REPAIRER HELPER Work Phone: [facility] 08-08-2023 10:39-0400 Diastolic blood pressure 90 mm[Hg] Conrado Quintanilla APRN.PROTECTIVE SIGNAL REPAIRER HELPER Work Phone: [facility] 08-08-2023 10:39-0400 Heart rate 102 /min Conrado Quintanilla WOOL CLASSER.PROTECTIVE SIGNAL REPAIRER HELPER Work Phone: [facility] 08-08-2023 10:39-0400 Respiratory rate 21 /min Conrado Quintanilla WOOL CLASSER.PROTECTIVE SIGNAL REPAIRER HELPER Work Phone: [facility] 08-08-2023 10:39-0400 SaO2% (BldA) [Mass fraction] 98 % Conrado Quintanilla WOOL CLASSER.PROTECTIVE SIGNAL REPAIRER HELPER Work Phone: [facility] 08-08-2023 10:39-0400 Systolic blood pressure 128 mm[Hg] Conrado Quintanilla WOOL CLASSER.PROTECTIVE SIGNAL REPAIRER HELPER Work Phone: [facility] Encounters Encounter Date Encounter Type Care Provider Facility Start: 05-09-2025 End: 05-09-2025 Patient encounter procedure Oumou ACOSTA -[facility] Work Phone: Start: 05-09-2025 End: 05-09-[address] Shlomo Beasley DO Work Phone: -[facility] Start: 04-17-2025 End: 04-17-2025 Patient encounter procedure Sebastian Linares NP-C -[facility] Work Phone: Start: 04-17-2025 End: 04-17-[address] Shlomo Beasley DO Work Phone: -[facility] Start: 02-07-2025 End: 02-07-2025 Patient encounter procedure Oumou ACOSTA -[facility] Work Phone: Start: 02-07-2025 End: 02-07-2025 ambulatory Shlomo Beasley Facility:[facility] Start: 02-07-2025 End: 02-07-2025 ambulatory Shlomo eBasley Facility:[facility] Start: 01-08-2025 End: 01-08-[address] Shlomo Powell DO -[facility] Work Phone: Start: 01-08-2025 End: 01-08-[address] Shlomo Beasley DO Work Phone: [facility] Work Phone: Start: 01-08-2025 End: 01-08-2025 ambulatory Shlomo Beasley Facility:[facility] Start: 11-07-2024 End: 11-07-2024 Patient encounter procedure Oumou ACOSTA -[facility] Work Phone: Start: 11-07-2024 End: 11-07-2024 ambulatory Shlomo Beasley Facility:[facility] Start: 11-07-2024 End: 11-07-2024 ambulatory Shlomo Beasley Facility:[facility] Start: 2024 Non-patient / Non-visit Dr. Yusuf Glaser MD -[facility] Work Phone: Start: 10-28-2024 Non-patient / Non-visit Dr. Jose Antonio Jack MD -[facility] Work Phone: Start: 10-27-2024 Non-patient / Non-visit Dr. Jose Antonio Jack MD -[facility] Work Phone: Start: 10-26-2024 Non-patient / Non-visit Jt Walker DO [facility] Start: 10-26-2024 Non-patient / Non-visit Dr. Jose Antonio Jack MD -[facility] Work Phone: Start: 10-26-2024 ambulatory Shlomo Beasley Facilit y:[facility] Start: 10-26-2024 End: 2024 Evaluation and management of inpatient Dr. Yusuf Glaser MD -[facility] Work Phone: Start: 07-20-2024 End: 07-20-2024 ambulatory Jonas ACOSTA Facility:[facility] Start: 07-09-2024 End: 07-09-2024 ambulatory Angel Ring Facility:[facility] Start: 02-13-[address] John mckeon Work Phone: [facility]-Physical Therapy Work Phone: Start: 02-11-2024 End: 02-11-[address] John Carias Work Phone: [facility] Work Phone: Start: 02-11-2024 End: 02-11-[address] John Carias Work Phone: [facility]-MRI - [facility] Work Phone: Start: 02-01-2024 End: 02-01-[address] John Carias Work Phone: [facility] Work Phone: Start: 12-15-2023 End: 12-15-[address] John Carias Work Phone: [facility] Work Phone: Start: 12-15-2023 End: 12-15-[address] John Carias Work Phone: [facility]-Outpatient Breast Imaging Work Phone: Start: 12-12-2023 End: 12-12-[address] John Carias Work Phone: [facility] Work Phone: Start: 12-12-2023 End: 12-12-[address] John Carias Work Phone: [facility]-Laboratory, [facility] Start: 12-09-2023 End: 12-09-[address] John Carias Work Phone: [facility] Internal [facility] Work Phone: Start: 12-06-2023 End: 12-06-[address] John Carias Work Phone: [facility] Work Phone: Start: 12-02-2023 End: 12-02-[address] John Carias Work Phone: [facility] Work Phone: Start: 11-30-2023 Non-patient / Non-visit Dr. John Carias Work Phone: [facility] Start: 11-30-2023 End: 11-30-[address] John Carias Work Phone: [facility] Work Phone: Start: 11-30-2023 End: 11-30-[address] [facility] Start: 11-18-2023 End: 11-18-[address] John Carias Work Phone: [facility] Radiology Start: 11-18-2023 End: 11-18-[address] John Carias Work Phone: [facility] Work Phone: Start: 08-08-2023 End: 08-08-2023 ambulatory MARIELA WHATLEY Facility:[facility] Start: 08-08-2023 End: 08-08-2023 Patient encounter procedure Conrado Quintanilla APRN.CNP Work Phone: [facility] Comment on above: Sore throat (Primary Dx) Start: 03-16-2023 ambulatory Mariela Whatley MD Work Phone: Internal Medicine [facility] Start: 03-24-2022 ambulatory Mariela Whatley MD Work Phone: Internal Medicine [facility] Start: 02-25-2021 End: 02-25-2021 Subsequent hospital visit by physician Xr [facility] Work Phone: Radiology Comment on above: Rib injury [S29.9XXA ] Procedures Date Procedure Procedure Detail Performing Clinician Start: 10-26-[address] Shlomo jonas DO Work Phone: Start: 10-26-2024 Measurement of occult blood in stool specimen using immunoassay Dr. Shlomo Beasley DO Work Phone: Start: 10-26-2024 Plain chest X-ray Dr. Shlomo Beasley DO Work Phone: Start: 10-26-2024 Computed tomography of abdomen and pelvis with contrast Dr. Shlomo Beasley DO Work Phone: Start: 02-11-2024 MRI of lumbar spine Dr. John Carias Work Phone: Start: 12-15-[address] John Carias Work Phone: Start: 11-18-2023 X-ray of lumbar spine, two or three views Dr. John Carias Work Phone: Start: 08-08-2023 STREP A MOLECULAR (POC) Conrado Quintanilla APRN.PROTECTIVE SIGNAL REPAIRER HELPER Work Phone: Start: 02-25-2021 Radex ribs uni w/posteroant ch minimum 3 views Nathanael Rudolph APRN.PROTECTIVE SIGNAL REPAIRER HELPER Work Phone: Start: 02-17-2021 Mammography Mariela Whatley MD Work Phone: Start: 01-24-2021 Adult depression screening assessment Mariela Whatley MD Work Phone: Start: 01-24-2021 Lipid 1996 panel - Serum or Plasma Claudine Quintanilla APRN.PROTECTIVE SIGNAL REPAIRER HELPER Work Phone: Start: 08-07-2013 Colonoscopy Mariela Whatley MD Work Phone: Plan of Treatment Date Care Activity Detail Author Start: 2036 RSV Vaccine (1 - 1-d ose 75+ series) RSV Vaccine (1 - 1-dose 75+ series) [facility] Start: 01-24-2026 Lipid 1996 panel - S afsaneh or Plasma Lipid Screening [facility] Start: 01-24-2026 Lipid panel Lipid Screening [facility] Start: 01-24-2026 LIPID SCREEN LIPID SCREEN [facility] Start: 2024 Patient discharge [facility] Start: 10-28-2024 Enteric precautions [place] Start: 10-27-2024 Care planning and pr oblem solving actions [facility] Start: 10-27-2024 Administration of bl ood product [facility] Start: 10-26-2024 End: 10-27-2024 [facility] Start: 10-26-2024 Administration of bl ood product [facility] Start: 10-26-2024 Application of intermittent pneumatic compression device [facility] Start: 10-26-2024 Following clinical p athway protocol [facility] Start: 10-26-2024 Ambulation without limitation [facility] Start: 10-26-2024 Assessment of risk o f venous thromboembolism [facility] Start: 10-26-2024 Documentation procedure [facility] Start: 10-26-2024 Inhalation therapy procedure [facility] Start: 10-26-2024 Insertion of cathete r into peripheral vein [facility] Start: 10-26-2024 Measuring intake and output [facility] Start: 10-26-2024 Notification of physician [facility] Start: 10-26-2024 Providing care accor ding to standard [facility] Start: 10-26-2024 Referral to gastroenterology service [facility] Start: 10-26-2024 Vital signs measurements [facility] Start: 10-26-2024 Admission procedure [facility] Start: 10-26-2024 End: 10-26-2024 Administration of blood product [facility] Start: 10-26-2024 Transfusion of red b lood cells [facility] Start: 10-26-2024 Enteric precautions [facility] Start: 10-26-2024 Patient referral to dietitian [facility] Start: 10-26-2024 [facility] Start: 06-17-2024 Covid-19 Vaccine ( season) Covid-19 Vaccine ( season) [facility] Start: 06-17-2024 Influenza vaccination Influenza Vacc ine (#1) [facility] Start: 02-01-2024 Patient referral [facility] Work Phone: Start: 01-25-2024 DIABETES SCREEN DIABETES SCREEN [facility] Start: 01-25-2024 Diabetes Screening Diabetes Screenin g [facility] Start: 08-07-2023 Colonoscopy COLONOSCOPY [facility] Start: 08-07-2023 COLORECTAL CANCER SCREENING COLORECTAL CANCER SCREENING [facility] Start: 08-07-2023 Screening for malign ant neoplasm of colon [facility] Start: 06-17-2023 Influenza vaccination [facility] Start: 10-17-2022 DEPRESSION ASSESSMENT DEPRESSION ASS ESSMENT [facility] Start: 06-17-2022 Influenza vaccination INFLUENZ A (Season Ended) [facility] Start: 02-17-[address] [facility] Start: 02-17-2022 Screening for malign ant neoplasm of breast Mammogram Screening [facility] Start: 01-24-2022 Adult depression scr eening assessment DEPRESSION SCREENING [facility] Start: 2021 RSV Vaccine (1 - 1-d ose 60+ series) RSV Vaccine (1 - 1-dose 60+ series) [facility] Start: 2011 Influenza vaccination Lung Cancer Sc reening [facility] Start: 2011 Screening for malign ant neoplasm of lung Lung Cancer Screening [facility] Start: 2011 SHINGRIX VACCINE (1 of 2) BOOKER GRIX VACCINE (1 of 2) [facility] Start: 2006 COLOGUARD (FIT-DNA) COLOGUARD (FIT-D NA) [facility] Start: [address] COLONOGRAPHY [facility] Start: 2006 FECAL OCCULT BLOOD FECAL OCCULT BLOO D [facility] Start: 2006 Screening for malign ant neoplasm of colon [facility] Start: 2006 SIGMOIDOSCOPY SIGMOIDOSCOPY [facility] Start: 1991 HPV TESTING HPV TESTING [facility] Start: 1982 PAP TESTING PAP TESTING [facility] Start: 1982 Screening for malign ant neoplasm of cervix Cervical Cancer Screening [facility] Start: 1980 Urine microalbumin profile [facility] Start: 1979 Anxiety Screening Anxiety Screening [facility] Start: 1979 Depression Screening Depression Scre ening [facility] Start: 1967 PNEUMOCOCCAL (1 - PCV) PNEUMOCOCCAL (1 - PCV) [facility] Start: 1967 Pneumococcal vaccination [facility] Start: 1966 COVID-19 VACCINE (#1) COVID-19 VACCI NE (#1) [facility] Start: 04-28-1962 COVID-19 VACCINE (#1) COVID-19 VACCI NE (#1) [facility] Ankle brachial press ure index [facility] CBC W Auto Different ial panel - Blood [facility] Comprehensive metabo lic 2000 panel - Serum or Plasma [facility] End: 04-23-2023 ARLETH SCREENING W LUZ ARLETH SCREENING W [facility] Radiology Routine Encounter for screening mammogram for breast cancer 1 Occurrences starting 03/24/2022 until 04/23/2023 [facility] Work Phone: Comment on above: 1 Occurrences starti ng 03/24/2022 until 04/23/2023 End: 04-14-2024 ARLETH SCREENING W LUZ ARLETH SCREENING W [facility] Radiology Routine Encounter for screening mammogram for breast cancer 1 Occurrences starting 03/16/2023 until 04/14/2024 [facility] Work Phone: Comment on above: 1 Occurrences starti ng 03/16/2023 until 04/14/2024 Patient referral [facility] Work Phone: Prothrombin time [facility] Immunizations Immunization Date Immunization Notes Care Provider Fa yanely 08-02-2017 influenza virus vacc ine, unspecified formulation Conrado Quintanilla APRN.CNP Work Phone: [facility] Payers Date Payer Category Payer Unknown [id number] 2024 Self-pay [id number] 2013 Unknown [employer] BL[employer] CARD PPO OOS [id number] 2013-Present [phone] [address] [place] [id number] PPO [id number] 2013 Unknown [employer] BLUE CARD PPO OOS [id number] 2013-Present [id number] [place] [id number] PPO [id number] 2013 Unknown [id number] Unknown [id number] Unknown [id number] Unknown [id number] Unknown [id number] [id number] Unknown [id number] [id number] Unknown [id number] [id number] Unknown [id number] [id number] Unknown [id number] [id number] Unknown [id number] [id number] Unknown [id number] [id number] Unknown [id number] [id number] Unknown [id number] [id number] Unknown [id number] [id number] Unknown [id number] [id number] Unknown [id number] [id number] Unknown [id number] [id number] Unknown [id number] Unknown [id number] Social History Date Type Detail Facility Start: 08-17-2012 End: 04-17-2025 Tobacco smoking status NHIS Smokes tobacco daily [facility] History of tobacco use Cigarette Smoker [facility] Start: 08-17-2012 End: 09-21-2020 Cigarettes smoked current (pack per day) - Reported 0.[address] [facility] Start: 08-17-2012 End: 01-24-2021 Tobacco use and exposure Smokeless tobacco non-user [facility] Start: 02-25-2021 End: 08-08-2023 Alcohol intake Current drinker of alcohol (finding) [facility] Start: 01-24-2021 History SDOH Alcohol Comment 5-6 beers on Tuesday [facility] Start: 09-20-2013 End: 08-08-2023 Tobacco Comment quit for 2 months (april and May) resumed and currently smoking 8-10 cigarrettes a day [facility] Start: 1960 Sex Assigned At Not on file [facility] Start: 09-21-2020 End: 08-08-2023 Tobacco use panel [facility] Adult Depression Screening Assessment [address] [facility] Start: 12-02-2023 End: 02-13-2024 Tobacco smoking status WIIS Unknown if ever smoked [facility] Start: 1960 Sex Assigned At Female [facility] Start: 01-26-2021 End: 02-25-2021 Exposure to SARS-CoV-2 (event) Not sure [facility] Start: 01-14-2025 Sex Female (finding) [facility] Medical Equipment Procedure Code Equipment Code Equipment Origin al Text Equipment Identifier Dates EGD, with monitored anesthesia care CLIP,RESO 360 ULTRA 235_17 FDA Start: 10-26-2024 EGD, with monitored anesthesia care CLIP,RESO 360 ULTRA 235_17 FDA Start: 10-26-2024 EGD, with monitored anesthesia care MANTIS CLIP FDA Start: 10-26-2024 EGD, with monitored anesthesia care CLIP,RESO 360 ULTRA 235_17 FDA Start: 10-26-2024 EGD, with monitored anesthesia care CLIP,RESO 360 ULTRA 235_17 FDA Start: 10-26-2024 EGD, with monitored anesthesia care MANTIS CLIP FDA Start: 10-26-2024 EGD, with monitored anesthesia care CLIP,RESO 360 ULTRA 235_17 FDA Start: 10-26-2024 EGD, with monitored anesthesia care CLIP,RESO 360 ULTRA 235_17 FDA Start: 10-26-2024 EGD, with monitored anesthesia care MANTIS CLIP FDA Start: 10-26-2024 Goals Date Patient Goal Desired Activity /State Functional Status Date Assessment Result Facility 2024 Functional status Up ad frank [facility] Work Phone: 2024 Functional status Tolerates Activity Well [facility] Work Phone: Mental Status Date Assessment Result Facility 2024 Cognitive function Voice/Name [facility] Work Phone: Clinical Notes 02-25-2021 to 02-07-2025 Note Date & Type Note Facility 02-07-2025 Evaluation note Diagnosis Onset Date Resolution Alcohol abuse acute February 07, 2025 2:54pm Anemia acute February 07 2:54pm Duodenal ulcer acute January 2:54pm Poison lasha dermatitis acute Apr 4:34pm Alcohol abuse acute May 09, 2025 3:26pm Anemia acute May 09 3:26pm Duodenal ulcer acute May 09, 2025 3:26pm [facility] Work Phone: 1(134) 170-646903-25-2025 Evaluation note* Diagnosis Onset Date Resolution Status Admit Date Alcohol abuse acute January 08, 2025 3:46pm Constipation acute January 08, 2025 3:46pm Duodenal ulcer acute December 3:46pm Alcohol abuse acute February 07, 2025 2:54pm Anemia acute February 07 2:54pm Duodenal ulcer acute January 2:54pm [facility] Work Phone: 1(636) 184-490401-13-2025 [facility] Medical Records Department [address] [place] [address] Discharge Summary 10/29/24 1218 MR#: [id number] Acct: [id number] Name: NESSA AMARAL Rep #: [id number] : 1960 64 From: Yusuf Glaser MD PCP: Dr. Shlomo Beasley, DO Status:ADM IN Location: [facility] CG103-8 Providers Date of Admission: 10/26/24 Date of Discharge: 10/29/24 Primary Care Physician: Dr. Shlomo Beasley, DO Consultations 10/26/24 11:45 Consult: Gastroenterology Routine Consulting Provider: [facility] Reason for Consult: GI bleed EMERGENT Consult: Yes MD Notified: Yes Date Notified: 10/26/24 Time Notified: 09:18 Method of Notification: ED Physician Initiated Reason For Visit: GI BLEED Diagnosis Discharge Diagnosis (1) Alcohol abuse: Status: Acute Code(s): F10.10 - Alcohol abuse, uncomplicated (2) Acute blood loss anemia: Status: Acute Code(s): D62 - Acute posthemorrhagic anemia (3) Lumbar scoliosis: Status: Acute Code(s): M41.9 - Scoliosis, unspecified Qualifiers: Scoliosis type: other secondary scoliosis Qualified Code(s): M41.56 - Other secondary scoliosis, lumbar region Plan Patient is a 63-year-old lady presented with progressive generalized weakness found to have hemoglobin of 3.3 with black tarry stool prior to admission. She also had 5-10 episodes of loose pulm/diarrhea, spontaneously resolved, did not had BM for last 3 days. 1. Acute upper gastrointestinal bleeding She was admitted in the ICU. ??? Suspected to be secondary to gastritis versus peptic ulcer disease patient reports heavy use of alcohol as well as kyrr-lcl-cdrjmam NSAIDs. Patient was started on Protonix drip octreotide antibiotic therapy with ceftriaxone admitted to the intensive care unit consultation placed to GI DrHannah Walker was notified from the ED prior to patient being admitted 10/27/2024 ;Underwent EGD Impressions : - Nida-Cabrera tear. Treated with argon plasma coagulation (APC). - No gross lesions in the entire stomach. - Spurting duodenal ulcer with a visible vessel. Treatment not successful. Treated with a heater probe. Treated with argon plasma coagulation (APC). Clips were placed. 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 - No specimens collected. 10/29: H H 8.4/25.7%. Platelet count 150,000, improved from 96K. Patient discharged on pantoprazole 40 mg twice daily. Advised to follow-up with GI office in 2 weeks. Advised not to take NSAIDs. 2. Acute blood loss anemia ??? Secondary to above patient was typed and crossmatched and order was given for patient to be transfused with 2 unit PRBC - 10/27/2024; transfused 2 additional units ??? 10/28/2023; patient has been transfused total of 4 unit PRBC since admission hemoglobin as of this a.m. is 8.6 10/29: Discharged on ferrous sulfate and ascorbic acid. 3. Chronic alcohol dependence ??? Patient was found to be tremulous in the ED started patient on alcohol CIWA withdrawal protocol with phenobarb taper 10/29: Withdrawal symptoms are well-controlled. Discharged on thiamine and folic acid. Mild hypophosphatemia and hypokalemia: Treated with Neutra-Phos and prescription given for the same. 4. Diarrhea send stool for enteric pathogen as well as C. difficile patient placed in enteric precautions pending results of stool studies 5. Chronic back pain ??? Patient was taking vzws-ioo-kzkuujs NSAIDs for pain relief. Cessation advised. Patient was placed on acute pain management protocol 6. Tobacco dependence ??? Counseled on cessation, offered nicotine patch for tobacco cravings 10/29: Prescription given for nicotine patch. 7. DVT prophylaxis ??? Bilateral SCDs, chemoprophylaxis contraindicated in view of patient presentation Discharge medication reconciliation done. Discharge follow-up instructions completed. Discharge process discussed with the patient and all questions were answered to patient's satisfaction. Follow with PCP in 1 to 2 weeks Total time spent, exact 35 minutes on discharge meds reconciliation, examination, coordination of care with nurses and ancillary staff, review of imaging and blood test and discussion with the patient on follow-up instructions. Medications at Discharge Home Medications timolol maleate 0.5 % eye drops 1 drp ophthalmic (eye) BID glaucoma 10/26/24 ascorbic acid (vitamin C) 500 mg tablet 500 mg PO BID #60 tabs 10/29/24 ferrous sulfate 325 mg (65 mg iron) tablet (FeroSul) 325 mg PO DAILY 30 days #30 tabs 10/29/24 folic acid 1 mg tablet 1 mg PO DAILY@0800 30 days #30 tabs 10/29/24 nicotine 21 mg/24 hr daily transdermal patch 21 mg transdermal DAILY #28 ea 10/29/24 pantoprazole 40 mg tablet,delayed release 40 mg PO BID 30 days #60 tabs 10/29/24 potassium, sodium phosphates 280 mg-160 mg-250 mg oral powder packet 1 packet PO BID 3 days #6 ea 10/29/24 thiamine HCl (vitamin B1) 100 mg ta (more content not included)...[facility]01-10-2025 Evaluation note* Diagnosis Onset Date Resolution Status Admit Date Alcohol abuse acute October 9:14am Acute blood loss anemia resolved J anuary 2024 9:14am Lumbar scoliosis inactive October 26, 2024 9:14am Anemia acute November 07, 2024 2:45pm Duodenal ulcer acute November 072024 2:45pm Alcohol abuse acute January 08, 2025 3:46pm Constipation acute January 08, 2025 3:46pm Duodenal ulcer acute December 3:46pm [facility] Work Phone: 1(779) 948-531310-23-2023 NoteHNO ID: [id number] Author: Conrado Quintanilla APRN.[facility] Service: ? Author Type: Nurse Practitioner Type: Progress Notes Filed: 08/08/2023 11:10 AM Note Text: CC: Patient presents with: Cough: Coughing up mucus, sore throat, fatigue, chills x 1 day HPI: Nessa Amaral is a 62 year old female who [...] this time. Did tell patient to do [id number] medication for symptom management Potential red flag symptoms discussed with the patient. Reviewed appropriate action plan to take if red flag symptoms occur. Patient agreeable to treatment plan. Conrado Quintanilla APRN.[facility]10-23-2023 History of Present illness Narrative* Conrado Quintanilla APRN.[facility] - 08/08/2023 10:47 AM EDT CC: Patient presents with: Cough: Coughing up mucus, sore throat, fatigue, chills x 1 day HPI: Nessa Amaral is a 62 year old female who [...] this time. Did tell patient to do [id number] medication for symptom management Potential red flag symptoms discussed with the patient. Reviewed appropriate action plan to take ifred flag symptoms occur. Patient agreeable to treatment plan. Conrado Quintanilla APRN.PROTECTIVE SIGNAL REPAIRER HELPER documented [facility] NotePatient Outreach (INTMMN) NESSA AMARAL ([id number]) 1960 F NFR Date Time Provider Department 03/16/23 MARIELA WHATLEY INTMMN During your visit today, we recorded the following information about you: Allergies As of Date: 03/16/2023 (No Known Allergies) Date Reviewed: 02/25/2021 Reviewed by: Alisson Villegas LPN - Fully Assessed Visit Diagnosis:Encounter for screening mammogram for breast cancer [Z12.31] Order(s):ARLETH SCREENING Jaquelin ESCOBAR [[id number]] Order #: [id number] FUTURE Prescriptions as of 03/21/2023 - Timolol Maleate 0.25 % dpet Use 1 Drop in both eyes once daily. Problem List As Of Date 03/16/2023 Noted Resolved Swelling of hand [M79.89] 08/18/2012 Abdominal pain, unspecified site [R10.9] 07/30/2013 Duodenitis [K29.80] 07/30/2013 Constipation [K59.00] 07/30/2013 Gallbladder polyp [K82.4] 08/28/2013 Duodenal ulcer [K26.9] 08/28/2013 Tobacco use disorder [F17.200] Encounter Status:Closed by EPIC, PRODUSER on 03/21/23[facility] 02-25-2021 History of Present illness Narrative* Robert Barreto RT(R) - 02/25/2021 4:30 PM EDT Radiology Service Progress Note PATIENT NAME: Nessa Amaral DATE OF SERVICE: February 25, 2021 TIME: 4:36 PM PATIENT IDENTITY VERIFICATION COMPLETED USING TWO (2) IDENTIFIERS: Name and Date of confirmedby patient verbally. FALL SCREENING: Has the patient had 2 falls in the last year or 1 fall with injury or currently using an Ambulatory Assistive Device (Walker, Cane, Wheelchair, Crutches, etc.)? Yes, Patient High Riskfor Falls What interventions were put in place to prevent falls during this visit? Instructed Patient to Callfor Help if Needed and Instructed Patient to Remain Seated (Not on Exam Table) Until Exam PATIENT GENDER DATA: Female. status: : No status: NO. PATIENT RELEVANT IMPLANT DATA REVIEWED: Not Applicable RADIOLOGY DEPARTMENT: General X-ray: Exam(s) Completed: Rib X-Ray: Right PERIPHERAL IV DATA: Not applicable SIGNED BY: RT Jammie(Andre) February 25, 2021 4:36 PM [facility] Diagnosis Encounter for screening mammogram for breast cancer documented in this encounter [facility] note* Diagnosis Sore throat- Primary Acute pharyngitis documented in this encounter [facility] note* Diagnosis Onset Date Resolution Status Leg pain, right acute Radiculopathy acute Greater trochanteric bursitis of right hip acute Radiculopathy acute [facility] Work Phone: Evaluation note* Diagnosis Onset Date Resolution Status Leg pain, right acute Radiculopathy acute Greater trochanteric bursitis of right hip acute Radiculopathy acute Annual physical exam acute Greater trochanteric bursitis of right hip acute 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, 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 Greater trochanteric bursitis of right hip acute [facility] Work Phone: Evaluation note* Diagnosis Onset Date Resolution Status Leg pain, right acute Radiculopathy acute Greater trochanteric bursitis of right hip acute Radiculopathy acute Annual physical exam acute Greater trochanteric bursitis of right hip acute 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, 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 Greater trochanteric bursitis of right hip acute Radiculopathy acute [facility] Work Phone: Reason for referral (narrative)* Diagnostic Procedure Only (Routine) - Pending Review Specialty Diagnoses / Procedures Referred By Benito king Referred To Contact [facility] Diagnoses Encounter for screening mammogram for breast cancer Procedures ARLETH SCREENING W LUZ SCREENING DIGITAL BREAST TOMOSYNTHESIS BI SCREENING MAMMOGRAPHY BI 2-VIEW BREAST INC CAD Mariela Whatley MD [address] [place] [address] [facility] [address] [place] [address] Referral ID Status Reason Start Date Expiration Date Visits Requested Visits Authorized [id number] Pending Review Auto-Generat ed Referral 03/24/2022 04/23/2023 1 1 [facility] for referral (narrative)* Diagnostic Procedure Only (Routine) - Pending Review Specialty Diagnoses / Procedures Referred By Contac t Referred To Contact [facility] Diagnoses Encounter for screening mammogram for breast cancer Procedures ARLETH SCREENING W LUZ SCREENING DIGITAL BREAST TOMOSYNTHESIS BI SCREENING MAMMOGRAPHY BI 2-VIEW BREAST INC CAD Mariela Whatley MD [address] [place] [address] [facility] [address] [place] [address] Referral ID Status Reason Start Date Expiration Date Visits Requested Visits Authorized [id number] Pending Review Auto-Generat ed Referral 03/16/2023 04/14/2024 [address] (narrative)No reason for referral information availableBadger Bow & Drape Services Work Phone: Summary Purpose Family History No Family History Records FoundNo Family History Records Found Advance Directives No Advanced Directives Records Found Advance Directive Response Recorded Date/ Time Living Will No July 26 2:25pm Power of Stone Circular Sawyer No July 26, 2013 2:25pm Advance Directive Response Recorded Date/ Time Living Will No February 13, 2024 10:23am Power of Stone Circular Sawyer No February 12 10:23am Advance Directive Response Recorded Date/ Time Living Will No October 26 12:51pm Do you have a Healthcare Power of Stone Circular Sawyer? No October 26, 2024 12:51pm Chief Complaint and Reason for Visit Chief Complaint ACUTE - LEG PAIN / E ST WITH DR.BROWN CERVANTES R LEG PAIN 2 WEEK FOLLOW UP Reason for Visit Leg pain, right Radiculopathy Greater trochanteric bursitis of right hip Radiculopathy Chief Complaint ACUTE - LEG PAIN / E ST WITH DR.BROWN CERVANTES R LEG PAIN 2 WEEK FOLLOW UP EST NEW PT - PPW SENT HIP INJECTION SCREENING Reason for Visit Leg pain, right Radiculopathy Greater trochanteric bursitis of right hip Radiculopathy Annual physical exam Greater trochanteric bursitis of right hip Memory loss, jail Greater trochanteric bursitis of right hip Chief Complaint ACUTE - LEG PAIN / E ST WITH DR.BROWN CERVANTES R LEG PAIN 2 WEEK FOLLOW UP EST NEW PT - PPW SENT HIP INJECTION SCREENING ACUTE - POSSIBLE PINCHED NERVE LUMBAR PAIN R HIP BURSITIS RX HERE Reason for Visit Leg pain, right Radiculopathy Greater trochanteric bursitis of right hip Radiculopathy Annual physical exam Greater trochanteric bursitis of right hip Memory loss, jail Greater trochanteric bursitis of right hip Radiculopathy Chief Complaint Admit Date GI BLEED October 26, 2024 9 :14am weakness October 26, 2024 9 :19am GI BLEED October 26, 2024 3 :33pm GI BLEED October 27, 2024 9 :37am GI BLEED October 28, 2024 8 :15am GI BLEED 2024 1 2:18pm Hospital FU November 07, 2024 2 :45pm FU January 08, 2025 3:4 6pm Reason for Visit Admit Date Alcohol abuse October 26, 2024 9 :14am Acute blood loss anemia October 26 9:14am Lumbar scoliosis October 26, 2024 9 :14am Anemia November 07, 2024 2 :45pm Duodenal ulcer November 07, 2024 2 :45pm Alcohol abuse January 08, 2025 3:4 6pm Constipation January 08, 2025 3:4 6pm Duodenal ulcer January 08, 2025 3:4 6pm Chief Complaint Admit Date FU January 08, 2025 3:4 6pm 3 M FU February 07, 2025 2:5 4pm INT LAB ORDERS February 07, 2025 3:2 3pm RASH ON LEGS, ARMS April 17, 2025 4:34p m Reason for Visit Admit Date Alcohol abuse January 08, 2025 3:4 6pm Constipation January 08, 2025 3:4 6pm Duodenal ulcer January 08, 2025 3:4 6pm Alcohol abuse February 07, 2025 2:5 4pm Anemia February 07, 2025 2:5 4pm Duodenal ulcer February 07, 2025 2:5 4pm Chief Complaint Admit Date 3 M FU February 07, 2025 2:5 4pm INT LAB ORDERS February 07, 2025 3:2 3pm RASH ON LEGS, ARMS April 17, 2025 4:34p m 3 M FU May 09, 2025 3:26 pm Reason for Visit Admit Date Alcohol abuse February 07, 2025 2:5 4pm Anemia February 07, 2025 2:5 4pm Duodenal ulcer February 07, 2025 2:5 4pm Poison lasha dermatitis April 17, 2025 4:3 4pm Alcohol abuse May 09, 2025 3:26 pm Anemia May 09, 2025 3:26 pm Duodenal ulcer May 09, 2025 3:26 pm Additional Source Comments Source Comments (unrecognize d section and content) In the event this informatio n is protected by the Federal Confidentiality of Alcohol and Drug Abuse Patient Records regulations: The Federal rules restrict any use of the information to criminally investigate or prosecute any alcohol or drug abuse patient.[facility] the event this information is protected by the Federal Confidentiality of Alcohol and Drug Abuse Patient Records regulations: The Federal rules restrict any use of the information to criminally investigate or prosecute any alcohol or drug abuse patient.[facility] HospitalIn the event this information is protected by the Federal Confidentiality of Alcohol and Drug Abuse Patient Records regulations: The Federal rules restrict any use of the information to criminally investigate or prosecute any alcohol or drug abuse patient.[facility] HospitalIn the event this information is protected by the Federal Confidentiality of Alcohol and Drug Abuse Patient Records regulations: The Federal rules restrict any use of the information to criminally investigate or prosecute any alcohol or drug abuse patient.[facility] Care Teams (unrecognized sec tion and content) Cw Operator Relationship Specialty Start Date End Date Mariela Whatley MD [address] [place], [place] [id number] PCP - General Family Practice 01/24/21 Cw Operator Relationship Specialty Start Date End Date Mariela Whatley MD [address] [place], [place] [id number] PCP - General Family Medicine 01/24/21 Cw Operator Relationship Specialty Start Date End Date Mariela Whatley MD [address] [place], [place] [id number] PCP - General Family Medicine 01/24/21 Team Status: Active Member Role Status Dates Dr. John Carias MD Family Provider Active Dr. Shlomo Beasley , DO Primary Care Provider Active Team Status: Inactive Member Role Status Dates Dr. John Carias MD Primary Care Provider, Referring Provider Active KARLA Palomares Attending Provider Active Team Status: Inactive Member Role Status Dates Dr. John Carias MD Primary Care Provider Active Dr. Jorge L Pineda MD Attending Provider Active Team Status: Active Member Role Status Dates Dr. Shlomo Beasley DO Primary Care Provider Active Dr. Jaime Medina MD Attending Provider Active Team Status: Inactive Member Role Status Dates KARLA Palomares Attending Provider, Referring Prov ider Active Dr. Shlomo Beasley , DO Primary Care Provider Active Team Status: Inactive Member Role Status Dates Dr. John Carias MD Referring Provider Active Dr. Shlomo Beasley DO Primary Care Provider, Attend ing Provider Active Team Status: Active Member Role Status Dates Dr. Shlomo Beasley DO Primary Care Provider Active Dr. Jaime Medina MD Attending Provider Active Jamel ACOSTA PA Referring Provider Active Team Status: Inactive Member Role Status Dates Dr. Shlomo Beasley , DO Primary Care Provider, Referr ing Provider Active Jamel ACOSTA PA Attending Provider Active Team Status: Active Member Role Status Dates Dr. Shlomo Beasley , DO Primary Care Pr ovider, Attending Provider, Referring Provider Active Team Status: Inactive Member Role Status Dates Dr. Shlomo Beasley , DO Primary Care Provider, Attend ing Provider Active Team Status: Inactive Member Role Status Dates Dr. Shlomo Beasley , DO Primary Care Pr ovider, Attending Provider, Referring Provider Active Team Status: Inactive Member Role Status Dates Dr. Shlomo Beasley , DO Primary Care Provider Active Jamel ACOSTA PA Attending Provider, Referring Prov ider Active Team Status: Active Member Role Status Dates Dr. Shlomo Beasley , DO Primary Care Provider Active Jamel ACOSTA PA Attending Provider, Referring Prov ider Active Cw Operator Relationship Specialty Start Date End Date Mariela Whatley MD [address] [place] [address] PCP - General Family Medicine 01/24/21 12/28/23 Team Status: Inactive Member Role Status Dates Dr. Shlomo Beasley DO Primary Care Provider Active Start: October 26, 2024 End: 2024 Dr. Daryn Paredes DO Emergency Provider Active Start: October 26, 2024 End: 2024 Dr. Jose Antonio Jack MD Admit Provider Active Star t: October 26, 2024 End: 2024 Dr. Jose Antonio Jack MD Other Provider Active Star t: October 26, 2024 End: 2024 Dr. Yusuf Glaser MD Attending Provider Active Start: October 26, 2024 End: 2024 Team Status: Active Member Role Status Dates Dr. Shlomo Beasley DO Primary Care Provider Active Start: October 26, 2024 Dr. Daryn Paredes DO Emergency Provider Active Start: October 26, 2024 Dr. Jose Antonio Jack MD Attending Provider Active Start: October 26, 2024 Team Status: Active Member Role Status Dates Dr. Shlomo Beasley DO Primary Care Provider Active Start: October 26, 2024 Dr. Daryn Paredes DO Emergency Provider Active Start: October 26, 2024 Dr. Jose Antonio Jack MD Admit Provider Active Star t: October 26, 2024 Dr. Jose Antonio Jack MD Other Provider Active Star t: October 26, 2024 Dr. Jt Walker DO Attending Provider Active Start: October 26, 2024 Dr. Yusuf Glaser MD Referring Provider Active Start: October 26, 2024 Team Status: Active Member Role Status Dates Dr. Shlomo Beasley DO Primary Care Provider Active Start: October 27, 2024 Dr. Daryn Paredes DO Emergency Provider Active Start: October 27, 2024 Dr. Jose Antonio Jack MD Admit Provider Active Star t: October 27, 2024 Dr. Jose Antonio Jack MD Attending Provider Active Start: October 27, 2024 Dr. Jose Antonio Jack MD Other Provider Active Star t: October 27, 2024 Team Status: Active Member Role Status Dates Dr. Shlomo Beasley DO Primary Care Provider Active Start: October 28, 2024 Dr. Daryn Paredes DO Emergency Provider Active Start: October 28, 2024 Dr. Jose Antonio Jack MD Admit Provider Active Star t: October 28, 2024 Dr. Jose Antonio Jack MD Attending Provider Active Start: October 28, 2024 Dr. Jose Antonio Jack MD Other Provider Active Star t: October 28, 2024 Team Status: Active Member Role Status Dates Dr. Shlomo Beasley DO Primary Care Provider Active Start: 2024 Dr. Daryn Paredes DO Emergency Provider Active Start: 2024 Dr. Jose Antonio Jack MD Admit Provider Active Star t: 2024 Dr. Jose Antonio Jack MD Other Provider Active Star t: 2024 Dr. Yusuf Glaser MD Attending Provider Active Start: 2024 Dr. Yusuf Glaser MD Other Provider Active Sta rt: 2024 Team Status: Inactive Member Role Status Dates Dr. Shlomo Beasley DO Primary Care Provider Active Start: November 07, 2024 End: November 07, 2024 Dr. Shlomo Beasley DO Referring Provider Active Start: November 07, 2024 End: November 07, 2024 KARLA Riley Attending Provider Active Start: November 07, 2024 End: November 07, 2024 Team Status: Inactive Member Role Status Dates Dr. Shlomo Beasley DO Primary Care Provider Active Start: November 07, 2024 End: November 07, 2024 KARLA Riley Attending Provider Active Start: November 07, 2024 End: November 07, 2024 KARLA Riley Referring Provider Active Start: November 07, 2024 End: November 07, 2024 Team Status: Inactive Member Role Status Dates Dr. Shlomo Beasley DO Primary Care Provider Active Start: January 08, 2025 End: January 08, 2025 Dr. Shlomo Beasley DO Attending Provider Active Start: January 08, 2025 End: January 08, 2025 Dr. Shlomo Beasley DO Referring Provider Active Start: January 08, 2025 End: January 08, 2025 Team Status: Active Member Role/Relationship Status Dates Dr. Shlomo Beasley DO Primary Care Provider Active Team Status: Inactive Member Role/Relationship Status Dates Dr. Shlomo Beasley DO Primary Care Provider Active Start: January 08, 2025 End: January 08, 2025 Dr. Shlomo Beasley DO Attending Provider Active Start: January 08, 2025 End: January 08, 2025 Dr. Shlomo Beasley DO Referring Provider Active Start: January 08, 2025 End: January 08, 2025 Team Status: Inactive Member Role/Relationship Status Dates Dr. Shlomo Beasley DO Primary Care Provider Active Start: January 08, 2025 End: January 08, 2025 Dr. Shlomo Beasley DO Attending Provider Active Start: January 08, 2025 End: January 08, 2025 Dr. Shlomo Beasley DO Referring Provider Active Start: January 08, 2025 End: January 08, 2025 Team Status: Inactive Member Role/Relationship Status Dates Dr. Shlomo Beasley DO Primary Care Provider Active Start: February 07, 2025 End: February 07, 2025 Dr. Shlomo Beasley DO Referring Provider Active Start: February 07, 2025 End: February 07, 2025 KARLA Riley Attending Provider Active Start: February 07, 2025 End: February 07, 2025 Team Status: Inactive Member Role/Relationship Status Dates Dr. Shlomo Beasley DO Primary Care Provider Active Start: February 07, 2025 End: February 07, 2025 KARLA Riley Attending Provider Active Start: February 07, 2025 End: February 07, 2025 KARLA Riley Referring Provider Active Start: February 07, 2025 End: February 07, 2025 Team Status: Inactive Member Role/Relationship Status Dates Dr. Shlomo Beasley DO Primary Care Provider Active Start: April 17, 2025 End: April 17, 2025 Dr. Shlomo Beasley DO Referring Provider Active Start: April 17, 2025 End: April 17, 2025 Sebastian Linares NEONATAL DOCTOR-C Attending Provider Active Star t: April 17, 2025 End: April 17, 2025 Team Status: Inactive Member Role/Relationship Status Dates Dr. Shlomo Beasley DO Primary Care Provider Active Start: February 07, 2025 End: February 07, 2025 Dr. Shlomo Beasley DO Referring Provider Active Start: February 07, 2025 End: February 07, 2025 KARLA Riley Attending Provider Active Start: February 07, 2025 End: February 07, 2025 Team Status: Inactive Member Role/Relationship Status Dates Dr. Shlomo Beasley DO Primary Care Provider Active Start: February 07, 2025 End: February 07, 2025 KARLA Riley Attending Provider Active Start: February 07, 2025 End: February 07, 2025 KARLA Riley Referring Provider Active Start: February 07, 2025 End: February 07, 2025 Team Status: Inactive Member Role/Relationship Status Dates Dr. Shlomo Beasley DO Primary Care Provider Active Start: April 17, 2025 End: April 17, 2025 Dr. Shlomo Beasley DO Referring Provider Active Start: April 17, 2025 End: April 17, 2025 Sebastian Linares NEONATAL DOCTOR-C Attending Provider Active Star t: April 17, 2025 End: April 17, 2025 Team Status: Inactive Member Role/Relationship Status Dates Dr. Shlomo Beasley DO Primary Care Provider Active Start: May 09, 2025 End: May 09, 2025 Dr. Shlomo Beasley DO Referring Provider Active Start: May 09, 2025 End: May 09, 2025 KARLA Riley Attending Provider Active Start: May 09, 2025 End: May 09, 2025 Reason for Visit (unrecogniz ed section and content) Reason Comments Cough Coughing up mucus, s ore throat, fatigue, chills x 1 day INFORMATION SOURCE (unrecogn ized section and content) DATE CREATED AUTHOR 08/09/2023 [facility] DATE CREATED AUTHOR AUTHOR'S ORGANIZ ATION 05/11/2025 [facility] Goals (unrecognized section and content) Goals may be documented in a n alternate sectionGoals may be documented in an alternate sectionGoals may be documented in an alternate sectionGoals may be documented in an alternate sectionGoals may be documented in an alternate sectionGoals may be documented in an alternate section FOR RECORDS PERTAINING TO PATIENTS WHO ARE [...] BE BASED ON THE PRIMARY CLINICAL RECORDS. [employer] [facility]. provides no warranty or guarantee of the accuracy or completeness of information in this document.
--- NOTE | 2025-05-12 15:38 | EDS_ITS ---
HPI History of Present Illness Chief Complaint: GI Bleed Detail of Chief Complaint: Bright red blood per rectum with bowel movement Informant: patient Onset/Context/Timing Onset: Today (X 1) Context: Sudden Onset Timing: Intermittent Quality: Bright red blood with bowel movement Location: Rectum Current Severity: Not applicable Maximum Severity: Mild Worsened by: Bowel movement Relieved by: Not applicable Associated Symptoms Associated Symptoms: None Narrative Narrative: Patient is a 64-year-old woman. She states she had bright red blood with bowel movement. She became nervous. She came in. She is nervous because she was diagnosed with a bleeding ulcer in October of this year. She was seen by Dr. Walker at that time. She had a EGD. She recently had a GI follow-up with nurse practitioner. Assessment was follow-up duodenal ulcer. She denies history of liver disease. She does drink daily. She also smokes. She denies change in the color or consistency or caliber of her stool past 1 to 2 months. She does report a 5 pound weight loss past month. She states her appetite has not been as good. Prior similar symptoms: No Recent Illness/Hospitalization: No PFSH PFSH Medical History Poison lasha dermatitis Lumbar scoliosis Alcohol abuse Leg pain Home Medications ?Medication ?Instructions ?Recorded ?Last Taken ?Type timolol maleate 0.5 % eye drops 1 drp ophthalmic (eye) BID glaucoma 10/26/24 10/25/24 History pantoprazole 40 mg tablet,delayed 40 mg PO BID 30 days #60 tabs 05/09/25 Unknown Rx release Allergy/AdvReac Type Severity Reaction Status Date / Time No Known Allergies Allergy Verified 05/12/25 15:06 Surgical History H/O dilation and curettage Hx of cholecystectomy Social History household members: none current occupational status: employed current occupation: [employer] pets and animals: Yes (1) pets and animals: cat(s) Smoking Status: Current every day smoker tobacco type: cigarettes Tobacco: How many years used: 40 alcohol intake: current alcohol intake frequency: 3 or more drinks per day substance use type: does not use and former substance user caffeine: Yes (1) Type: carbonated beverages what type of physical activity do you participate in: none frequency: 1-2 times per week do you feel safe at home: Yes ROS ROS ED Constitutional Constitutional ED: Denies chills, fever(s), subjective, sweats or weight loss Cardiovascular Cardiovascular: Denies chest pain or palpitations Respiratory/Chest Respiratory/Chest: Denies cough, dyspnea or dyspnea on exertion Gastrointestinal Gastrointestinal: Reports other Details: HPI narrative ; Denies abdominal pain, constipation, diarrhea, melena, nausea or vomiting Genitourinary Genitourinary ED: Denies hematuria Hematologic/Lymphatic Hematologic/Lymphatic: Reports systems reviewed and no addt'l complaints, except as documented EXAM Physical Exam Const Vital Signs: 05/12/25 15:06 Temperature 97.6 F L Temperature Source Oral Pulse Rate 81 Respiratory Rate 16 Blood Pressure 156/100 H Blood Pressure Mean 118 Pulse Ox 99 Positive well nourished and well developed Constitutional Narrative: Blood pressure slightly elevated. She is not tachycardic. General Appearance ED: well developed and NAD; Negative for pallor HEENT Reports moist mucous membranes HEENT Narrative: Head is atraumatic, cephalic. Ears normal. Eyes PERRL and EOMs intact bilaterally General Eye ED: Negative for pale conjunctiva or scleral icterus Neck no lymphadenopathy, supple and no JVD Resp normal respiratory effort and clear to auscultation bilaterally Cardio regular rate, regular rhythm, S1 normal heart sound, S2 normal heart sound and no murmurs GI normal to inspection, nondistended, normoactive bowel sounds, non-tender, non- distended and no masses; Negative for hepatosplenomegaly GI Narrative: Patient has lesion consistent with condyloma anus. There is also a sentinel tag noted. There is no fissures or fistulas noted. Rectal exam reveals soft stool. Brown in color. There appeared to be slight blood. There was no palpable mass. Auscultation: normoactive bowel sounds Palpation: soft Extremity normal to inspection Neuro oriented x3 and CN's II-XII intact bilaterally Sensorium / Orientation: alert Psych Mood & Affect: anxious Skin no rashes or lesions noted, no wounds and skin turgor normal General Skin Exam: elasticity normal; Negative for jaundice or pallor MDM MDM MDM Narrative Medical decision making narrative: Suspect patient has bright red blood due to hemorrhoids. Since was no visible hemorrhoids anoscopy was performed. Anoscopy was performed which reveals a hemorrhoid at 5:00 lithotomy position. Anal mucosa and rectal distal rectal mucosa is unremarkable. Stool is brown. There is no blood noted above the scope. There is no indication for laboratory testing. Discharge Plan Triage Chief Complaint: GI Bleed ED Provider: [facility] Dx/Rx/DC Orders Clinical Impression: Bleeding grade I hemorrhoids, Alcohol abuse, Elevated blood-pressure reading w ithout diagnosis of hypertension Instructions: ED Hemorrhoids, ED Hypertension, To Be Confirmed Prescriptions: No Action pantoprazole 40 mg tablet,delayed release (DR/EC) 40 mg PO BID 30 Days Qty: 60 2RF timolol maleate 0.5 % drops 1 drp ophthalmic (eye) BID Primary Care Provider: Shlomo Beasley Referrals: Shlomo Beasley, DO [Primary Care Provider] - 1-2 Days if not improving Print Language: Occitan Disposition Disposition: Home, Self Care
== END 2025-05-12 15:49 | disposition home or self-care (01) ==
PROVIDERS: Emergency Provider Emergency Medicine; PCP Family Medicine; Visit Provider Emergency Medicine
DX: K64.0 First degree hemorrhoids (principal); F10.10 Alcohol abuse, uncomplicated; R03.0 Elevated blood-pressure reading, without diagnosis of hypertension; F17.210 Nicotine dependence, cigarettes, uncomplicated; Z79.899 Other long term (current) drug therapy
CPT/HCPCS: 99282

== ENCOUNTER 2025-08-26 15:30 | Outpatient (RCR) | payer OTHER, BC, SELFPAY ==
--- NOTE | 2025-07-24 17:13 | HP.PTEVAL_ITS ---
Patient's Visit Information Visit Information Visit Information: NESSA AMARAL is a 64 year old F referred to Physical Therapy by KARLA Valdes with a diagnosis of L strain and L radic. Date of Evaluation: 07/24/25 Physical Therapist: BLADIMIR Stallings Visit Plan Frequency: 2-3x /Week Duration: 6 Weeks Plan: 2-3X/ week for 12 visits for L spine stretching, R piriformis stretching, neutral spine core stability, LE strength for proper lifting techniques, demonstrate proper lifting techniques with HEP HEP: seated R piriformis stretch and LTR Subjective Subjective: Pt reports that she was unloading boxes off a conveyor (32#) she felt something pull and took aspirin and continued with the day. She iced and heated over the weekend. On Tuesday she reached overhead and it hurt and then that next Tuesday it was hard for her to move. She went to [facility] and they gave her Prednisone (3 left) and muscle relaxers and they are helping here to sleep. She saw yesterday and she goes this coming Tuesday. She is still at work doing light duty. She gets some shots of pain down the R thigh and calf that comes and goes. Her back pain comes and goes. She feels the pain when she goes to sit or stand. She reports that if sitting too long she will be in pain or if she stands too long she will start hurting. She can do stairs. Pain Back pain: Pain Intensity (Out of 10): 4 R leg pain: Pain Intensity (Out of 10): 4 Objective Objective: Gait: walks with decrease stance time on the R LE Trunk AROM: flexion 75%, Ext 25%, SB B 50%, Rot B 75% Patellar DTR: 2+/3 B SLUMP test: - B LE MMT: R hip flex 6 and L 6.6 R knee ext 4.2 and L 9.6 R knee flex 4.4 and L 6.4 R hip abd 4.1 and L 6.3 in supine Pt able to do 1/2 normal ROM bridge - L SLR and + R SLR when coming back down Bridge: 1/2 normal ROM with little pain Standing heel and toe raises: X 5 each direction with UE support Sit to stand: able on first attempt without the use of her arms Pt had some increase pain with LTR and pain with R Piriformis stretch Balance/Special Test Scores Oswestry Low Back Score: 11 Goals Goal 1:: I HEP Goal Time Frame: 6-8 Weeks Goal 2:: Decrease back and R leg pain with sit to stand activities Goal Time Frame: 6-8 Weeks Goal 3:: Increase trunk AROM (at the time of the eval: Trunk AROM: flexion 75%, Ext 25%, SB B 50%, Rot B 75%) to be able to perform work duties Goal Time Frame: 6-8 Weeks Goal 4:: Be able to demonstrated lifting techniques/postures once pain subsides from various services Goal Time Frame: 6-8 Weeks Rehabilitation Potential Rehabilitation Potential: Good Anticipated Interventions Patient/Client Instruction: Educate patient on: Condition and Plan of Care For the Purpose of:: To decrease pain, To increase ROM, To improve nutrient delivery to tissue, To improve muscle performance and motor function, To improve ability to perform ADL's, To increase tolerance to activity/condition/position, To improve performance and independence with ADL's, To decrease level of supervision to perform tasks, To improve gait and locomotor functions, To improve health of tissue, To decrease soft tissue restriction and To increase flexibility/ROM Therapeutic Exercise to Include: Strength training, Endurance training, Body mechanics, Postural training, Flexibilty training, Gait and locomotor training, Neuromotor development, Active ROM and Dynamic Lumbar Stabilization For the Purpose of:: To decrease pain, To increase ROM, To improve nutrient delivery to tissue, To improve muscle performance and motor function, To improve ability to perform ADL's, To increase tolerance to activity/condition/position, To improve performance and independence with ADL's, To decrease level of supervision to perform tasks, To improve ability of physical actions for home/community/work/leisure, To improve gait and locomotor functions, To improve health of tissue, To decrease soft tissue restriction, To increase flexibility/ROM and To improve endurance Cryotherapy (ice pack, ice massage): Yes Thermo therapy (hot pack): Yes For the Purpose of:: To decrease pain, To decrease swelling/inflammation, To improve nutrient delivery to tissue and To improve muscle performance and motor function Text: Thank you for the opportunity to evaluate your patient. For Medicare and Medicare HMO plans, please review the plan of care and approve it. It will need to be FAXED BACK to us at [phone] for Medicare purposes. For Medicare only, by signing this I certify the plan of care. Please let me know if there are questions or concerns regarding this plan of care. Physician Signature: Date:
--- NOTE | 2025-08-26 16:02 | HP.PTDCSUM ---
Discharge Summary D/C summary: It has been my pleasure to treat NESSA AMARAL referred by KARLA Valdes, with the diagnosis of L strain and L radic for a total of 13 visit(s). Discharge Date: 08/26/25 Please see the following information for a summary of their discharge status. Subjective Subjective: Pt still hurts everyday but that is her baseline. Luanne smith still hurts to do. Pt RTD tomm. Pain Back pain: Pain Intensity (Out of 10): 0 R leg pain: Pain Intensity (Out of 10): 0 Overall Improvement % Improvement: 95 Objective Objective/Function: Trunk AROM: flexion 100%, Ext 75%, SB B 75%, Rot B 75%) to be able to perform work duties Pt demonstrated how to lift an object from the floor by bending her knees and bringing the object close to her. Goals Goal 1:: I HEP Goal Progress: Goal Met Goal 2:: Decrease back and R leg pain with sit to stand activities Goal Progress: Goal Met Goal 3:: Increase trunk AROM (at the time of the eval: Trunk AROM: flexion 75%, Ext 25%, SB B 50%, Rot B 75%) to be able to perform work duties Goal Progress: Goal Met Goal 4:: Be able to demonstrated lifting techniques/postures once pain subsides from various services Goal Progress: Goal Met Plan Plan: DC PT. D/C Information Discharge Comments: DC PT d/c sentence: If there are questions or concerns regarding this patient's physical therapy, please feel free to call me at [phone]. Thank you for the referral of this patient. Sincerely, Georgie Edouard, MPT Balance/Gait/Functional tests Balance/Special Test Scores Oswestry Low Back Score: 0 Improvement % Improvement: 95
== END 2025-08-26 19:00 | disposition home or self-care (01) ==
LOC: PT 15:30
PROVIDERS: PCP Family Medicine; Referring Provider Physician Assistant; Visit Provider Physician Assistant
DX: S39.012D Strain of muscle, fascia and tendon of lower back, subsequent encounter (principal); M54.16 Radiculopathy, lumbar region
CPT/HCPCS: 97110; 97161; 97530